=== PATIENT | male | born 1945 | race Caucasian/White ===

== ENCOUNTER 2021-06-26 00:31 | Day surgery (SDC) | payer MEDICARE, SELFPAY ==
[2021-06-18 11:31] VITALS: BMI 33.2
[2021-06-26 11:21] VITALS: BP 125/74; PULSE 96; RESP 18; TEMP 36.2; O2SAT 98
--- NOTE | 2021-06-26 11:23 | WPDGICN ---
Assessment and Plan Assessment and plan (1) History of colon polyps: Code(s): Z86.010 - Personal history of colonic polyps Status: Acute Assessment and Plan: Patient has a history of colon polyps on 2 previous colonoscopies. Plan is for surveillance colonoscopy at this time. Further recommendations will be given after endoscopy. GI Consult Note Consult date/time: 06/26/21 11:23 HPI: Maco Mendoza is a 75 year old male Presents for screening colonoscopy. Patient has a history of colon polyp at the time of last endoscopy 2014. Patient also had colon polyps in 2011. His current weight appetite and bowel movements are normal. He denies abdominal pain. He has had no bleeding. Family history is significant for an uncle with colon cancer. Patient presents today for neoplasia screening. Review of Systems Review of Systems: All systems reviewed & are unremarkable except as noted in HPI and below PMFSH Past Medical History Medical History (Updated 06/26/21 @ 11:24 by Karan Armijo MD) Alcohol abuse Allergic rhinitis Encounter for immunization Essential hypertension Gastroesophageal reflux disease Hyperlipidemia, unspecified Insomnia Major depressive disorder, single episode, unspecified KERRIE (obstructive sleep apnea) Overweight (BMI 25.0-29.9) Persistent cough for 3 weeks or longer Prediabetes Seborrheic keratoses Thrombocytopenia Surgical History Surgical History H/O colonoscopy with polypectomy Family History Family History Mother Family history of osteoporosis Father Family history of hearing loss Social History Social History Smoking packs per day: 1 Smoking cigarettes per day: 20.0 Years smoked: 15 Smoking pack-years: 15.00 Smoking status: Former smoker Tobacco type: cigarettes Second hand tobacco smoke exposure: No Smoking end date: 05/19/15 Alcohol intake: former Substance use: never Substance use type: does not use Living arrangements: with family Gender identity (if verbalized by the patient): Male Spiritual care concerns: No Meds Home Medications and Allergies Home Medications Medication Instructions Recorded Confirmed Type aripiprazole 5 mg tablet 5 mg PO QPM tablet 11/29/19 06/18/21 History bupropion HCl 150 mg 24 hr tablet, 150 mg PO QAM tablet 11/29/19 06/18/21 History extended release fluticasone propionate 50 2 spray NASAL DAILY PRN ml 11/29/19 06/18/21 History mcg/actuation nasal spray,suspension naltrexone 50 mg tablet 50 mg PO DAILY tablet 11/29/19 06/18/21 History albuterol sulfate 90 mcg/actuation 1 puff INHALATION BID PRN 06/07/20 06/18/21 History aerosol inhaler ketoconazole 2 % shampoo 1 applic TOPICAL 2XW PRN 06/07/20 06/18/21 History loratadine 10 mg tablet 10 mg PO QPM 06/07/20 06/18/21 History cholecalciferol (vitamin D3) 125 125 mcg PO QPM 11/21/20 06/18/21 History mcg (5,000 unit) capsule desonide 0.05 % lotion 1 applic TOPICAL DAILY PRN 11/21/20 06/18/21 History magnesium oxide 400 mg (241.3 mg 400 mg PO DAILY 11/21/20 06/18/21 History magnesium) tablet mecobalamin (vitamin B12) 1,000 1,000 mcg SUBLINGUAL DAILY 11/21/20 06/18/21 History mcg disintegrating tablet,sublingual melatonin 10 mg capsule 10 mg PO QHS 11/21/20 06/18/21 History miboywtn-crhyjzpt-ayphh acid 400 1 tablet PO DAILY 11/21/20 06/18/21 History mcg-vit K 20 mcg-lycop 300 mcg tablet turmeric root extract 500 mg 500 mg PO DAILY 11/21/20 06/18/21 History capsule Glucosamine Chondroitin 1 cap PO DAILY 06/18/21 06/18/21 History bioflavonoids 200 mg PO DAILY 06/18/21 06/18/21 History omeprazole 40 mg capsule,delayed 40 mg PO QPM #90 cap 06/25/21 Rx release Allergies Allergy/AdvReac Type Severity Reaction Status Date / Time phenytoin Allergy Unk
[2021-06-26] MEDS: LACTATED RINGERS 1,000 ML 150 ML IV CONT (11:33)
--- NOTE | 2021-06-26 11:53 | WPDANESEPPF ---
Anes - Initial Pre Proc Eval Procedure: Operation Date: 06/26/21 12:30 Proposed Procedures p Screening Colonoscopy - Karan Armijo MD Date/Time: 06/26/21 11:53 Surgeon: Karan Armijo MD Pre Op Diagnosis: hx of colon polyps Patient Data Age: 75 Gender: M Height: 1.78 m Weight: 90.8 kg Last Vital Signs Temp 97.2 F L 06/26/21 11:21 Pulse 96 06/26/21 11:21 Resp 18 06/26/21 11:21 BP 125/74 06/26/21 11:21 Pulse Ox 98 06/26/21 11:21 Allergies Allergy/AdvReac Type Severity Reaction Status Date / Time phenytoin Allergy Unknown Unknown Verified 06/26/21 11:19 Home Medications Medication Instructions Recorded Confirmed Type aripiprazole 5 mg tablet 5 mg PO QPM tablet 11/29/19 06/18/21 History bupropion HCl 150 mg 24 hr tablet, 150 mg PO QAM tablet 11/29/19 06/18/21 History extended release fluticasone propionate 50 2 spray NASAL DAILY PRN ml 11/29/19 06/18/21 History mcg/actuation nasal spray,suspension naltrexone 50 mg tablet 50 mg PO DAILY tablet 11/29/19 06/18/21 History albuterol sulfate 90 mcg/actuation 1 puff INHALATION BID PRN 06/07/20 06/18/21 History aerosol inhaler ketoconazole 2 % shampoo 1 applic TOPICAL 2XW PRN 06/07/20 06/18/21 History loratadine 10 mg tablet 10 mg PO QPM 06/07/20 06/18/21 History cholecalciferol (vitamin D3) 125 125 mcg PO QPM 11/21/20 06/18/21 History mcg (5,000 unit) capsule desonide 0.05 % lotion 1 applic TOPICAL DAILY PRN 11/21/20 06/18/21 History magnesium oxide 400 mg (241.3 mg 400 mg PO DAILY 11/21/20 06/18/21 History magnesium) tablet mecobalamin (vitamin B12) 1,000 1,000 mcg SUBLINGUAL DAILY 11/21/20 06/18/21 History mcg disintegrating tablet,sublingual melatonin 10 mg capsule 10 mg PO QHS 11/21/20 06/18/21 History buhzoxvl-buvycivb-yipaw acid 400 1 tablet PO DAILY 11/21/20 06/18/21 History mcg-vit K 20 mcg-lycop 300 mcg tablet turmeric root extract 500 mg 500 mg PO DAILY 11/21/20 06/18/21 History capsule Glucosamine Chondroitin 1 cap PO DAILY 06/18/21 06/18/21 History bioflavonoids 200 mg PO DAILY 06/18/21 06/18/21 History omeprazole 40 mg capsule,delayed 40 mg PO QPM #90 cap 06/25/21 Rx release Patient hx anesthesia problems: none Family hx anesthesia problems: none Results Review: All pre-operative results and documents have been reviewed as part of the pre-operative evaluation. [facility] Past Medical History Medical History (Updated 06/26/21 @ 11:24 by Karan Armijo MD) Alcohol abuse Allergic rhinitis Encounter for immunization Essential hypertension Gastroesophageal reflux disease Hyperlipidemia, unspecified Insomnia Major depressive disorder, single episode, unspecified KERRIE (obstructive sleep apnea) Overweight (BMI 25.0-29.9) Persistent cough for 3 weeks or longer Prediabetes Seborrheic keratoses Thrombocytopenia Surgical History Surgical History H/O colonoscopy with polypectomy Family History Family History Mother Family history of osteoporosis Father Family history of hearing loss Social History Social History Smoking packs per day: 1 Smoking cigarettes per day: 20.0 Years smoked: 15 Smoking pack-years: 15.00 Smoking status: Former smoker Tobacco type: cigarettes Second hand tobacco smoke exposure: No Smoking end date: 05/19/15 Alcohol intake: former Substance use: never Substance use type: does not use Living arrangements: with family Gender identity (if verbalized by the patient): Male Spiritual care concerns: No Anes - Eval Final PreProcedure Day of Procedure 06/26/21 11:53 Patient weight: overweight Heart: regular rate and rhythm Lungs: clear to auscultation Airway: Mallampati scale class II Neurological: alert and oriented Last oral intake: >/= 8 hours ASA classifica
[2021-06-26 12:26] VITALS: BP 95/61; PULSE 79; RESP 16; O2SAT 96
[2021-06-26 12:36] VITALS: BP 118/36; PULSE 90; RESP 17; O2SAT 97
[2021-06-26 12:46] VITALS: BP 121/81; PULSE 75; RESP 17; O2SAT 100
== END 2021-06-26 12:56 | disposition home or self-care (01) ==
PROVIDERS: PCP Family Medicine; Visit Provider Internal Medicine Gastroenterology
PROC: 0DJD8ZZ Inspection of Lower Intestinal Tract, Via Natural or Artificial Opening Endoscopic (ICD-10-PCS; CPT 45378; principal; 2021-06-26 12:30)
DX: Z12.11 Encounter for screening for malignant neoplasm of colon (principal); D12.2 Benign neoplasm of ascending colon; D12.4 Benign neoplasm of descending colon; K63.5 Polyp of colon; K57.30 Diverticulosis of large intestine without perforation or abscess without bleeding; Z79.51 Long term (current) use of inhaled steroids; I10 Essential (primary) hypertension; E78.5 Hyperlipidemia, unspecified; R73.03 Prediabetes; K21.9 Gastro-esophageal reflux disease without esophagitis; F32.9 Major depressive disorder, single episode, unspecified; G47.33 Obstructive sleep apnea (adult) (pediatric); Z87.891 Personal history of nicotine dependence
CPT/HCPCS: 45385; 88305; J2704; J7120

== ENCOUNTER 2022-11-27 11:29 | Emergency (ER) | payer MEDICARE, SELFPAY ==
--- NOTE | 2022-11-27 11:37 | ED.URI ---
HPI - URI/Sore Throat General Chief Complaint: Upper Respiratory Infection Stated Complaint: Sore throa, headache, fever, body aches Source: patient, family and RN notes reviewed Mode of arrival: ambulatory Limitations: no limitations History of Present Illness HPI Narrative: patient is a 77-year-old male who presents to the [facility] with complaints of sore throat, headache, and fever starting on Friday. Patient states that his symptoms have continued along with some generalized body aches and nasal congestion / drainage. Patient states that he has a chronic cough that has not changed. It is not productive. He denies shortness of breath or chest pain. Denies abdominal pain, nausea, vomiting, diarrhea. Related Data Home Medications Medication Instructions Recorded Confirmed aripiprazole 5 mg tablet 5 mg PO QPM 11/29/19 11/27/22 bupropion HCl 150 mg 24 hr tablet, 150 mg PO QAM 11/29/19 11/27/22 extended release fluticasone propionate 50 2 spray intranasal DAILY PRN Sinus 11/29/19 11/27/22 mcg/actuation nasal Symptoms spray,suspension naltrexone 50 mg tablet 50 mg PO DAILY 11/29/19 11/27/22 albuterol sulfate 90 mcg/actuation 1 puff inhalation BID PRN 06/07/20 11/27/22 aerosol inhaler Shortness Of Breath Or Wheezing ketoconazole 2 % shampoo 1 applic topical 2XW PRN Outbreak 06/07/20 11/27/22 desonide 0.05 % lotion 1 applic topical DAILY PRN Rash 11/21/20 11/27/22 mecobalamin (vitamin B12) 1,000 1,000 mcg sublingual DAILY 11/21/20 11/27/22 mcg disintegrating tablet,sublingual melatonin 10 mg capsule 10 mg PO QHS 11/21/20 11/27/22 cakmtwvz-rbcyjpay-vjtib acid 400 1 tablet PO DAILY 11/21/20 11/27/22 mcg-vit K 20 mcg-lycop 300 mcg tablet (One-A-Day Men's Multivitamin) turmeric root extract 500 mg 500 mg PO DAILY 11/21/20 11/27/22 capsule Glucosamine Chondroitin 1 cap PO DAILY 06/18/21 11/27/22 bioflavonoids 200 mg capsule 200 mg PO DAILY 06/18/21 11/27/22 Allergies Allergy/AdvReac Type Severity Reaction Status Date / Time phenytoin Allergy Unknown Unknown Verified 11/27/22 11:48 Review of Systems Review of Systems: CONSTITUTIONAL: Reports fever. EYES: Denies visual changes, redness, or discharge. ENT: Reports sore throat. Reports nasal congestion and drainage. CARDIOVASCULAR: Denies chest pain, palpitations, or edema. RESPIRATORY: Denies cough or dyspnea. GASTROINTESTINAL: Denies abdominal pain, nausea, vomiting, or diarrhea. GENITOURINARY: Denies dysuria or hematuria. SKIN: Denies rash or itching. MUSCULOSKELETAL: Denies back pain or joint pain. Reports body aches. NEUROLOGIC: Denies numbness or weakness. Reports headache. Pertinent positives per HPI. [facility] Past Medical History Medical History Alcohol abuse Allergic rhinitis Encounter for immunization Essential hypertension Gastroesophageal reflux disease Hyperlipidemia, unspecified Insomnia Major depressive disorder, single episode, unspecified KERRIE (obstructive sleep apnea) Overweight (BMI 25.0-29.9) Persistent cough for 3 weeks or longer Prediabetes Seborrheic keratoses Thrombocytopenia Surgical History Surgical History H/O colonoscopy with polypectomy Family History Family History Mother Family history of osteoporosis Father Family history of hearing loss Social History Social History Smoking packs per day: 1 Smoking cigarettes per day: 20.0 Years smoked: 15 Smoking pack-years: 15.00 Smoking status: Former smoker (stopped 5 years Smoked 20 years 1ppd) Tobacco type: cigarettes Second hand tobacco smoke exposure: No Smoking end date: 05/19/15 Alcohol intake: former Substance use: never Substance use type: does not use Lack of Transportation: No Lack of Food: Never
[2022-11-27 11:38] VITALS: BP 126/59; PULSE 94; RESP 16; TEMP 37.6; O2SAT 96
== END 2022-11-27 11:58 | disposition home or self-care (01) ==
PROVIDERS: Emergency Provider Nurse Practitioner; PCP Family Medicine
DX: U07.1 COVID-19 (principal); I10 Essential (primary) hypertension; K21.9 Gastro-esophageal reflux disease without esophagitis; E78.5 Hyperlipidemia, unspecified; R73.03 Prediabetes; Z87.891 Personal history of nicotine dependence
CPT/HCPCS: 87081; 87426; 87804; 87880; 99213; C9803; G0463

== ENCOUNTER 2023-04-07 14:03 | Outpatient (CLI) | payer MEDICARE, SELFPAY ==
--- NOTE | ~2023-04-07 | US_ITS ---
US arterial ankle brachial ind INDICATION: Peripheral vascular disease TECHNIQUE: Segmental pressures and plethysmographic and Doppler waveforms of the brachial and lower e xtremity arteries were obtained. COMPARISON: None. FINDINGS: Right and left brachial artery pressures of 128 mm Hg and 129 mm Hg, respectively, are concordant (no rmal difference <= 30 mmHg). The right ankle-brachial index (CODI) is 1.16 (normal >= 0.9-1.0). The right great toe-brachial index (TBI) is 0.36 (normal >= 0.60). The left CODI is 1.2. The left TBI is 0.2. IMPRESSION: 1. Diminished bilateral toe brachial indices consistent with peripheral arterial disease. Reviewed, dictated and finalized at location B. NO HOST IMPRESSION: 1. Diminished bilateral toe brachial indices consistent with peripheral arteria l disease.
== END 2023-04-07 14:04 | disposition home or self-care (01) ==
PROVIDERS: PCP Family Medicine; Visit Provider Family Medicine
DX: I73.9 Peripheral vascular disease, unspecified (principal)
CPT/HCPCS: 93922

== ENCOUNTER 2024-04-19 10:34 | Emergency (ER) | payer MEDICARE, SELFPAY ==
[2024-04-19 10:44] VITALS: BP 152/76; PULSE 88; RESP 18; TEMP 36.7; O2SAT 100
[2024-04-19 10:45] VITALS: BP 152/76; PULSE 88; RESP 18; TEMP 36.7; O2SAT 100
--- NOTE | 2024-04-19 11:15 | ED.URI ---
HPI - URI/Sore Throat General Chief Complaint: Upper Respiratory Infection Stated Complaint: Sore Throat/Ear Pain Time Seen by Provider: 04/19/24 11:05 Source: patient and RN notes reviewed Mode of arrival: ambulatory Limitations: no limitations History of Present Illness HPI Narrative: Patient presents today with a one-week history of sore throat that is worse in the mornings, right ear fullness, nasal congestion, subjective fever, eye watering. He currently rates his pain 8/10 and has been taking Zyrtec an aspirin without much relief. Related Data Home Medications Medication Instructions Recorded Confirmed aripiprazole 5 mg tablet 5 mg PO QPM 11/29/19 04/19/24 bupropion HCl 150 mg 24 hr tablet, 150 mg PO QAM 11/29/19 04/19/24 extended release naltrexone 50 mg tablet 50 mg PO DAILY 11/29/19 04/19/24 ketoconazole 2 % shampoo 1 applic topical 2XW PRN Outbreak 06/07/20 04/19/24 desonide 0.05 % lotion 1 applic topical DAILY PRN Rash 11/21/20 04/19/24 melatonin 10 mg capsule 10 mg PO QHS 11/21/20 04/19/24 zclvnjcj-hbubmdve-kwbst acid 400 1 tablet PO DAILY 11/21/20 04/19/24 mcg-vit K 20 mcg-lycop 300 mcg tablet (One-A-Day Men's Multivitamin) Glucosamine Chondroitin 1 cap PO DAILY 06/18/21 04/19/24 bioflavonoids 200 mg capsule 200 mg PO DAILY 06/18/21 04/19/24 Allergies Allergy/AdvReac Type Severity Reaction Status Date / Time phenytoin Allergy Unknown Unknown Verified 04/19/24 10:43 Review of Systems Review of Systems: CONSTITUTIONAL: Denies body aches, chills, or sweats.+ subjective fever EYES: Denies visual changes, redness, or discharge.+ eye watering ENT: Denies rhinorrhea, or otalgia.+ right ear fullness, sore throat, nasal congestion CARDIOVASCULAR: Denies chest pain, palpitations, or edema. RESPIRATORY: Denies cough or dyspnea. GASTROINTESTINAL: Denies abdominal pain, nausea, vomiting, or diarrhea. GENITOURINARY: Denies dysuria or hematuria. SKIN: Denies rash, itching, or wounds. MUSCULOSKELETAL: Denies back pain, joint pain, or myalgia. NEUROLOGIC: Denies headache, numbness, tingling, or weakness. PSYCH: Denies depression or anxiety. [facility] Past Medical History Medical History Alcohol abuse Allergic rhinitis Encounter for immunization Essential hypertension Gastroesophageal reflux disease Hyperlipidemia, unspecified Insomnia Major depressive disorder, single episode, unspecified KERRIE (obstructive sleep apnea) Overweight (BMI 25.0-29.9) Persistent cough for 3 weeks or longer Prediabetes Seborrheic keratoses Thrombocytopenia Surgical History Surgical History H/O colonoscopy with polypectomy Family History Family History Mother Family history of osteoporosis Father Family history of hearing loss Social History Social History Smoking packs per day: 1 Smoking cigarettes per day: 20.0 Years smoked: 15 Smoking pack-years: 15.00 Smoking status: Former smoker (stopped 5 years Smoked 20 years 1ppd) Tobacco type: cigarettes Second hand tobacco smoke exposure: No Smoking end date: 05/19/15 Alcohol intake: former Substance use: never Substance use type: does not use Lack of Transportation: No Lack of Food: Never True Current Housing: I Have Housing Concerned About Future Housing: No Difficulty Paying Gas/Electric Bills: No Difficulty Paying for Meds: No Currently Unemployed: No Education: Bachelor's Degree Difficulty w/ Childcare or Family Care: No Living arrangements: with family Gender identity (if verbalized by the patient): Male Spiritual care concerns: No Comments At time of signature, I have reviewed and agree with nursing past medical, surgical, social and family history unless otherwise noted. Please see nursing chart for further information. There is no relevant family history pertinent to the presenting complaint Exam Narrative: GENERAL: Well-appearing, well-nourished, and in no acute distress. HEAD: Normocephalic, atraumatic. EYES: EOMI. No redness or drainage. Conjunctivae normal. ENT: Mucous membranes pink and moist. Nares clear. No rhinorrhea. TMs normal bilaterally. Throat erythematous with mild edema. No exudate. Uvula midline. NECK: Normal AROM. Supple. No lymphadenopathy. CHEST: No respiratory distress. Clear to auscultation. HEART: Regular rate and rhythm. No murmur appreciated. EXTREMITIES: Normal range of motion. No edema. SKIN: Warm, dry, no rash. Capillary refill normal. Normal skin turgor. NEURO: No focal deficits. Alert and oriented x3. Gait steady. PSYCH: Normal affect. No signs of depression or anxiety. Course Course Level of Care: Express Care Visit Vital Signs Vital signs: Vital Signs Temperature 98.1 F 04/19/24 10:44 Pulse Rate 88 04/19/24 10:44 Respiratory Rate 18 04/19/24 10:44 Blood Pressure 152/76 H 04/19/24 10:44 Pulse Oximetry 100 04/19/24 10:44 Oxygen Delivery Room Air 04/19/24 10:44 Temperature 98.1 F 04/19/24 10:45 Pulse Rate 88 04/19/24 10:45 Respiratory Rate 18 04/19/24 10:45 Blood Pressure 152/76 H 04/19/24 10:45 Pulse Oximetry 100 04/19/24 10:45 Oxygen Delivery Room Air 04/19/24 10:45 Reviewed MDM - URI/Sore Throat MDM Narrative Medical decision making narrative: Rapid strep negative. Culture pending. Symptoms likely viral in etiology. Discussed facl-opv-elyyczm medication use and duration of illness. Short prescription for prednisone sent to pharmacy to help with symptoms. Anticipatory guidance given. Differential Diagnosis Differential diagnosis: Likely upper respiratory infection, otitis media, viral infection, bronchitis, pharyngitis and other (Strep throat) Lab Data Attestation: I reviewed the patient's lab results. Lab results narrative: Rapid strep negative Critical Care Time Critical Care Time Critical Care Time: No Discharge Plan Discharge Clinical Impression: Upper respiratory infection Qualifiers: URI type: unspecified URI Qualified Code(s): J06.9 - Acute upper respiratory infection, unspecified Pharyngitis Qualifiers: Pharyngitis/tonsillitis etiology: unspecified etiology Qualified Code(s): J02.9 - Acute pharyngitis, unspecified Patient Disposition: Home, Self-Care Condition: Stable Instructions: Pharyngitis (ED) Additional Instructions: Your rapid strep swab was negative today at [facility]. You will be notified in a few days if the culture comes back positive for strep, and appropriate antibiotics will be called in for you at that time. Your symptoms are likely due to a viral illness, which is not treated with antibiotics. Viral symptoms can be present for up to 7-10 days. Take Cipriano for fever or pain. Rest and stay hydrated. Follow up with your PCP in 3-5 days if symptoms are not improving. Go to the ER immediately if you have any difficulty breathing or swallowing. Take the prednisone as directed. Your blood pressure was elevated above 120/80 today at Urgent Care. This puts you above the threshold for follow up. Please schedule a followup visit with your personal physician as soon as possible, for further evaluation and treatment. Even blood pressure exceeding 120/80 may indicate pre-hypertension. Prescriptions: New prednisone 20 mg tablet 40 mg PO DAILY 5 Days Qty: 10 0RF No Action naltrexone 50 mg tablet 50 mg PO DAILY bupropion HCl 150 mg tablet extended release 24 hr 150 mg PO QAM aripiprazole 5 mg tablet 5 mg PO QPM ketoconazole 2 % shampoo 1 applic topical 2XW PRN (Reason: Outbreak) desonide 0.05 % lotion 1 applic topical DAILY PRN (Reason: Rash) One-A-Day Men's Multivitamin 400-20-300 mcg tablet 1 tablet PO DAILY melatonin 10 mg capsule 10 mg PO QHS bioflavonoids 200 mg Capsule 200 mg PO DAILY Glucosamine Chondroitin 1 cap PO DAILY aspirin 81 mg tablet,delayed release (DR/EC) 81 mg PO DAILY Qty: 30 0RF omeprazole 40 mg capsule,delayed release(DR/EC) 40 mg PO QPM Qty: 90 3RF rosuvastatin 5 mg tablet 5 mg PO DAILY Qty: 30 6RF loratadine 10 mg tablet 10 mg PO QPM Qty: 90 3RF Follow-up/Referrals: Rama Dacosta MD [Primary Care Provider] - Time of Disposition: 11:19
[2024-04-19 17:03] LABS: EDSTREPNEGPOS1 Negative (Negative)
== END 2024-04-19 11:26 | disposition home or self-care (01) ==
PROVIDERS: Emergency Provider Nurse Practitioner; PCP Family Medicine
DX: J06.9 Acute upper respiratory infection, unspecified (principal); J02.9 Acute pharyngitis, unspecified; Z87.891 Personal history of nicotine dependence; I10 Essential (primary) hypertension; K21.9 Gastro-esophageal reflux disease without esophagitis; E78.5 Hyperlipidemia, unspecified; R73.03 Prediabetes; D69.6 Thrombocytopenia, unspecified
CPT/HCPCS: 87081; 87880; 99213; G0463

== ENCOUNTER 2024-06-25 11:38 | Outpatient (CLI) | payer MEDICARE, SELFPAY ==
--- NOTE | ~2024-06-25 | XR_ITS ---
EXAMINATION: XR knee LT 3V DATE: 06/25/2024 12:05 INDICATION: Pain in unspecified knee. TECHNIQUE: 3 views of left knee including standing views were obtained. COMPARISON: Left knee radiographs 09/05/2003 FINDINGS: Alignment is normal. No fracture. There is moderate osteoarthritis of medial compartment an d mild osteoarthritis of lateral and patellofemoral compartments. No knee joint effusion. IMPRESSION: 1. Moderate left knee osteoarthritis. Reviewed, dictated and finalized at location A. ENT ACCOUNTING REPRESENTATIVE
--- NOTE | ~2024-06-25 | XR_ITS ---
XR knee RT 3V 06/25/2024 12:05 Indication: Right knee pain Procedure: 3 views right knee Comparison: No prior studies for comparison. Findings: There is severe osteoarthritis of the right knee, most advanced at the medial compartment. No fracture or traumatic malalignment. No significant joint effusion. Impression: 1: Tricompartment osteoarthritis, severe in the medial compartment. Reviewed, dictated and finalized at location A. RETE STONE FABRICATOR Impression: 1: Tricompartment osteoarthritis, severe in the medial compartment.
== END 2024-06-25 11:39 | disposition home or self-care (01) ==
LOC: MICIMG 11:40
PROVIDERS: PCP Family Medicine; Visit Provider Student in an Organized Health Care Education/Training Program
DX: M17.0 Bilateral primary osteoarthritis of knee (principal)
CPT/HCPCS: 73562

== ENCOUNTER 2024-07-27 07:38 | Outpatient (CLI) | payer MEDICARE, SELFPAY ==
--- OUTSIDE RECORDS SUMMARY | 2024-07-27 07:42 | XMS_ITS | Referral Summary ---
Author Organization [facility] Address [address] [place] [address] Care Team Providers Care Sap Bw Consultant Name Role Phone Rama Dacosta MD Primary Care Provider [phone] Source Comments [facility],non-owned Affiliates and Associated Physician Practices is amultiple site organization consisting of ambulatory clinics and hospital sitesin [place], [place], [place] and [place]. This disclosure is being madepursuant to the Care Everywhere program and may not contain all information available regarding this patient. Last updated 18.[facility] Immunizations Name Administration Dates Next Due INFLUENZA VACCINE, HIGH-DOSE , QUADR. (FLUZONE HIGH-DOSE QUADRIVALENT; 65Y+), 0.7 ML ([id number]) 04/22/2016 Social History Tobacco Use Types Packs/Day Years Used Date Smoking Tobacco: Never Assessed Sex and Gender Information Value Date Recorded Sex Assigned at Not on file Gender Identity Not on file Sexual Orientation Not on file Plan of Treatment Not on file Care Teams Sap Bw Consultant Relationship Specialty Start Date End Date Rama Dacosta MD [address] [place] [address] PCP - General Family Medicine 04/22/16
--- OUTSIDE RECORDS SUMMARY | 2024-07-27 07:42 | XMS_ITS | Clinical Summary ---
Author Organization [address] Address [address] [place] [address] Care Team Providers Care Forklift Wheel Loader Name Role Phone Rama Dacosta MD Primary Care Provider [phone] Allergies No known active allergies Medications ARIPiprazole (ABILIFY) 5 mg tablet 1 Active buPROPion XL (WELLBUTRIN XL) 150 mg 24 hr tablet 1 Active naltrexone (DEPADE) 50 mg tablet 1 Active omeprazole (PriLOSEC) 40 mg capsule 1 Active fluticasone propionate (FLONASE) 50 mcg/actuation nasal sprayIndication s:Seasonal allergic rhinitis due to pollen Administer 2 sprays into each nostril daily 3 Inhaler 3 1 Active Active Problems Problem Noted Date Diagnosed Date Seasonal allergic rhinitis due to pollen 021 Surgical History Surgery Date Site/Laterality Comments APPENDECTOMY Medical History Medical History Date Comments Allergic rhinitis Anxiety Depression Peptic ulcer GERD (gastroesophageal reflux disease) Sinusitis Social History Tobacco Use Types Packs/Day Years Used Date Smoking Tobacco: Former Cigarettes Q uit: 2017 Smokeless Tobacco: Never Personal Safety Answer Date Recorded Getting School Help Needed Not on file 08/01 Sex and Gender Information Value Date Recorded Sex Assigned at Not on file 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 Gender Identity Not on file Sexual Orientation Not on file Obstetrics History Last Filed Vital Signs Vital Sign Reading Time Taken Comments Blood Pressure - - Pulse - - Temperature 36.5 C (97.7 F) 08/24/2020 8:47 AM CDT Respiratory Rate - - Oxygen Saturation - - Inhaled Oxygen Concentration - - Weight 104.3 kg (230 lb) 08/24/2020 8:47 AM CDT Height 177.8 cm (5' 10 ) 08/24/2020 8:47 AM CDT Body Mass Index 33 08/24/2020 8:47 AM CDT Plan of Treatment Not on file Insurance [facility] Address: [facility] [address] [place] [address] Care Teams Forklift Wheel Loader Relationship Specialty Start Date End Date Rama Dacosta MD PCP - General Family Medicine 08/10/20
--- OUTSIDE RECORDS SUMMARY | 2024-07-27 07:42 | XMS_ITS | Patient Health Summary ---
Author Organization [facility] Address [address] [facility] [place] [address] Care Team Providers Care Chief Fundraising Officer Name Role Phone Rama Dacosta MD Primary Care Provider [phone] Note from [facility],non-owned Affiliates and Associated Physician Practices is amultiple site organization consisting of ambulatory clinics and hospital sitesin [place], [place], [place] and [place]. This disclosure is being madepursuant to the Care Everywhere program and may not contain all information available regarding this patient. Last updated 18.[facility] Immunizations * INFLUENZA VACCINE, HIGH-DOSE, QUADR. (FLUZONE HIGH-DOSE QUADRIVALENT; 65Y+), 0.7 ML (HD-IIV4)(Given 04/22/2016) Social History Tobacco Use Types Packs/Day Years Used Date Smoking Tobacco: Never Assessed Sex and Gender Information Value Date Recorded Sex Assigned at Not on file Gender Identity Not on file Sexual Orientation Not on file Procedures * DERMATOPATHOLOGY(Performed 07/07/2018) Results * DERMATOPATHOLOGY (07/07/2018 12:00 AM FULL STACK NET DEVELOPER) Case Report Dermatopathology Report Case: [id number] Authorizing Provider: Chris Paniagua MD Collected: 07/07/2018 12:00 AM Pathologist: Parth Castellano MD Received: 07/08/2018 12:12 PM Specimen: Skin, left cheek 9 4:22 PM FULL STACK NET DEVELOPER DERMATOPATHOLOGY LABORATORY Final Diagnosis Specimen A. SKIN, left cheek: BENIGN VERRUCOUS KERATOSIS, INFLAMED (L82.1) 9 4:[address] [facility] DERMATOPATHOLOGY LABORATORY Clinical History R/O BCC, ISK,SCC 9 4:[address] [facility] DERMATOPATHOLOGY LABORATORY Gross Description Specimen A: Received is one formalin filled container labeled with the patient's name and designated left cheek. The specimen consists of a shave biopsy measuring 8x7x4 mm, bisected. Jar 0. 9 4:[address] [facility] DERMATOPATHOLOGY LABORATORY Microscopic Description Specimen A. SKIN, left cheek: Sections show hyperkeratosis, papillomatosis, hypergranulosis, and acanthosis. Inflammatory cells are present within the dermis. These histological findings can be seen in a verruca vulgaris or a seborrheic keratosis. 4:[address] [facility] DERMATOPATHOLOGY LABORATORY Disclaimer An external and internal positive and negative controls are appropriate for the histochemical, immunohistochemical and immunofluorescence stain(s) in this case (if any), except where stated explicitly. The performance characteristics of the stain(s) cited in this report were developed and its performance characteristic determined by the Dermatopathology Laboratory at [facility], directed by Dr. Shraddha Castellano. These tests need not be, and therefore are not, approved by the [place] Food and Drug Administration. The tests are used for clinical purposes. Billing Codes Specimen Charges Stain Charges 29481 1 9 4:[address] [facility] DERMATOPATHOLOGY LABORATORY Embedded Images 9 4:[address] [facility] DERMATOPATHOLOGY LABORATORY Pathology/Cytolog y TISSUE SPECIMEN FROM SKIN / Unknown 07/07/2018 07/08/2018 12:[address] [facility] Chris Paniagua MD LAB - PATHOLOGY/CYTO LOGY ORDERABLES DERMATOPATHOLOGY LABORATORY [facility] - Department of Dermatology [address] [facility], [address] Floor Lab [address] [phone] Care Teams Chief Fundraising Officer Relationship Specialty Start Date End Date Rama Dacosta MD [address] [place] [address] PCP - General Family Medicine 04/22/16
--- OUTSIDE RECORDS SUMMARY | 2024-07-27 07:42 | XMS_ITS | Clinical Summary ---
Author Organization [facility] Address [address] Lui: Erika Pretayla [place] [address] Care Team Providers Care Cvicu Nurse Name Role Phone Unavailable Primary Care Provider Unavailabl e Medications ARIPiprazole (ABILIFY) 5 mg tablet TAKE ONE TABLET BY MOUTH AT BEDTIME 90 Tablet 2 Active buPROPion HCL (WELLBUTRIN XL) 150 mg Extended Release 24 hour tablet Take 1 tablet every day by oral route in the morning for 90 days. 90 Tablet 2 Active naltrexone (DEPADE) 50 mg tablet Take 1 tablet every day by oral route in the morning for 90 days. 90 Tablet 2 Active ARIPiprazole (ABILIFY) 5 mg tablet TAKE ONE TABLET BY MOUTH AT BEDTIME 90 Tablet 1 03/14/2022 6:24 PM CDT 2 Active buPROPion HCL (WELLBUTRIN XL) 150 mg Extended Release 24 hour tablet Take 1 Tablet (150 mg) by mouth daily in the morning. 90 Tablet 1 03/14/2022 6:24 PM CDT 2 Active naltrexone (DEPADE) 50 mg tablet Take 1 Tablet (50 mg) by mouth daily in the morning. 90 Tablet 1 03/14/2022 6:24 PM CDT 2 Active mometasone (ELOCON) 0.1 % Cream Apply twice daily to the face and behind ears 60 Gram 2 04/24/2022 12:54 PM PSYCHOLOGIST CLINICAL 2 Active buPROPion HCL (WELLBUTRIN XL) 150 mg Extended Release 24 hour tablet Take 1 tablet every day by oral route in the morning for 90 days. 90 Tablet 1 09/19/2022 2:45 PM CDT 3 Active naltrexone (DEPADE) 50 mg tablet Take 1 tablet every day by oral route in the morning for 90 days. 90 Tablet 1 09/19/2022 2:45 PM CDT 3 Active loratadine (CLARITIN) 10 mg tablet TAKE 1 TABLET BY MOUTH EVERY EVENING. 90 Tablet 3 07/10/2023 11:47 AM PSYCHOLOGIST CLINICAL 3 Active fluticasone propionate (FLONASE) 50 mcg/spray Shelby, Suspension nasal inhaler Administer 1 Shelby in each nostril 2 times daily. 16 Gram 11/27/2022 1:14 PM CDT 3 Active ARIPiprazole (ABILIFY) 5 mg tablet TAKE ONE TABLET BY MOUTH AT BEDTIME 90 Tablet 1 07/10/2023 11:47 AM PSYCHOLOGIST CLINICAL 3 Active naltrexone (DEPADE) 50 mg tablet Take 1 tablet every day by oral route in the morning for 90 days. 90 Tablet 1 08/15/2023 4:41 PM CDT 3 Active loratadine (CLARITIN) 10 mg tablet Take 1 tablet by mouth every evening 90 Tablet 3 4 Active omeprazole (PriLOSEC) 40 mg Capsule, Delayed Release(E.C.) Take 1 Capsule (40 mg) by mouth every evening. 90 Capsule 3 06/15/2024 2:10 PM PSYCHOLOGIST CLINICAL 4 Active ergocalciferol (VITAMIN D2) 50,000 unit capsule Take 1 Capsule (50,000 Units) by mouth every 7 days. 12 Capsule 2 07/19/2024 3:20 PM PSYCHOLOGIST CLINICAL 4 Active loratadine (CLARITIN) 10 mg tablet Take 1 Tablet (10 mg) by mouth daily every evening. 90 Tablet 3 06/05/2024 2:01 PM PSYCHOLOGIST CLINICAL 4 Active ARIPiprazole (ABILIFY) 5 mg tablet Take 1 Tablet (5 mg) by mouth daily at bedtime. 90 Tablet 1 05/20/2024 3:16 PM PSYCHOLOGIST CLINICAL 4 Active buPROPion HCL (WELLBUTRIN XL) 150 mg Extended Release 24 hour tablet Take 1 Tablet (150 mg) by mouth daily in the morning. 90 Tablet 1 06/29/2024 2:18 PM PSYCHOLOGIST CLINICAL 4 Active naltrexone (DEPADE) 50 mg tablet Take 1 Tablet (50 mg) by mouth daily. 90 Tablet 1 04/26/2024 2:59 PM PSYCHOLOGIST CLINICAL 4 Active amoxicillin-cl avulanate (AUGMENTIN) 875-125 mg tablet Take 1 Tablet by mouth 2 times daily. 20 Tablet 06/15/2024 2:10 PM PSYCHOLOGIST CLINICAL 5 Active rosuvastatin (CRESTOR) 5 mg tablet Take 1 Tablet (5 mg) by mouth daily. 30 Tablet 6 07/12/2024 4:11 PM PSYCHOLOGIST CLINICAL 5 Active rosuvastatin (CRESTOR) 5 mg tablet Take 1 Tablet (5 mg) by mouth daily. 30 Tablet 6 03/31/2024 11:42 AM PSYCHOLOGIST CLINICAL 4 07/12/19 25 Discontinu ed(Reorder ) Social History Tobacco Use Types Packs/Day Years Used Date Smoking Tobacco: Never Assessed Sex and Gender Information Value Date Recorded Sex Assigned at Not on file Legal Sex Male 3:27 PM CDT Gender Identity Not on file Sexual Orientation Not on file Plan of Treatment Health Maintenance Due Date Last Done Comments DTAP/TDAP/TD VACCINES (1 - Tdap) 08/03/1963 PNEUMOCOCCAL VACCINE 50+ YEARS (1 of 1 - PCV) 08/02/18 95 ZOSTER VACCINE (1 of 2) 1994 RSV VACCINE (60+ or ) (1 - 1-dose 75+ series) 08/03/2019 INFLUENZA VACCINE (#1) 2023 Insurance RX [employer] ([employer]) [facility] [employer] RX [employer] Medicare Part D
--- OUTSIDE RECORDS SUMMARY | 2024-07-27 07:42 | XMS_ITS | Encounter Summary ---
Author Organization [facility] Address [address] [place] [address] Care Team Providers Care Thread Laster Name Role Phone Rama Dacosta MD Primary Care Provider [phone] Encounter Details Date Type Department Care Team (Late st Contact Info) Description 07/08/2018 Lab Requisition [facility] Care DermPath Lab [address] [facility] [place] [address] Chris Paniagua MD [address] [place] [address] Social History Tobacco Use Types Packs/Day Years Used Date Smoking Tobacco: Never Assessed Sex and Gender Information Value Date Recorded Sex Assigned at Not on file Gender Identity Not on file Sexual Orientation Not on file documented as of this encounter Plan of Treatment Not on file documented as of this encounter Procedures Procedure Name Priority Date/Time Associated Diagnosis Comments DERMATOPATHOLOGY Routine 07/07/2018 12:0 0 AM PARACHUTE INSPECTOR documented in this encounter Results * DERMATOPATHOLOGY (07/07/2018 12:00 AM PARACHUTE INSPECTOR) Case Report Dermatopathology Report Case: [id number] Authorizing Provider: Chris Paniagua MD Collected: 07/07/2018 12:00 AM Pathologist: Parth Castellano MD Received: 07/08/2018 12:12 PM Specimen: Skin, left cheek 9 4:22 PM PARACHUTE INSPECTOR DERMATOPATHOLOGY LABORATORY Final Diagnosis Specimen A. SKIN, left cheek: BENIGN VERRUCOUS KERATOSIS, INFLAMED (L82.1) 9 4:22 PM [facility] DERMATOPATHOLOGY LABORATORY Clinical History R/O BCC, ISK,SCC 9 4:22 PM [facility] DERMATOPATHOLOGY LABORATORY Gross Description Specimen A: Received is one formalin filled container labeled with the patient's name and designated left cheek. The specimen consists of a shave biopsy measuring 8x7x4 mm, bisected. Jar 0. 4:22 PM [facility] DERMATOPATHOLOGY LABORATORY Microscopic Description Specimen A. SKIN, left cheek: Sections show hyperkeratosis, papillomatosis, hypergranulosis, and acanthosis. Inflammatory cells are present within the dermis. These histological findings can be seen in a verruca vulgaris or a seborrheic keratosis. 4:22 PM [facility] DERMATOPATHOLOGY LABORATORY Disclaimer An external and internal positive and negative controls are appropriate for the histochemical, immunohistochemical and immunofluorescence stain(s) in this case (if any), except where stated explicitly. The performance characteristics of the stain(s) cited in this report were developed and its performance characteristic determined by the Dermatopathology Laboratory at [facility], directed by Dr. Shraddha Castellano. These tests need not be, and therefore are not, approved by the [place] Food and Drug Administration. The tests are used for clinical purposes. Billing Codes Specimen Charges Stain Charges 72795 1 9 4:22 PM [facility] DERMATOPATHOLOGY LABORATORY Embedded Images 9 4:22 PM [facility] DERMATOPATHOLOGY LABORATORY Pathology/Cytolog y TISSUE SPECIMEN FROM SKIN / Unknown 07/07/2018 07/08/2018 12:12 PM PARACHUTE INSPECTOR Chris Paniagua MD LAB - PATHOLOGY/CYTO LOGY ORDERABLES DERMATOPATHOLOGY LABORATORY [facility] - Department of Dermatology [address] [place] [address], 5th Floor Lab [address] [phone] documented in this encounter Visit Diagnoses Not on filedocumented in this encounter Care Teams Thread Laster Relationship Specialty Start Date End Date Rama Dacosta MD [address] [place] [address] PCP - General Family Medicine 04/22/16 documented as of this encounter
--- OUTSIDE RECORDS SUMMARY | 2024-07-27 07:42 | XMS_ITS ---
Author Organization [facility] [employer] [facility] Address [address] [facility] [address] [place] [address] Care Team Providers Care Pot Room Supervisor Name Role Phone Rama Dacosta MD Primary Care Provider Monae Dacosta Unavailable [phone] Allergies No Known Allergies REASON FOR VISIT f/u Medications Medication SIG (Take, Route, Frequency, Duration) Notes Start Date End Date Status FLUZONE HIGH-DOSE QUAD (PF) 240 MCG/0.7 ML IM SYRINGE *Reorder from [employer] for eRx and Interaction Alerts* 09/23/2023 Active Omeprazole 40 MG Oral 09/23/2023 Ac tive ARIPiprazole 5 MG 1 tablet at bedtime Oral Once a day for 90 days 09/23/2023 Active buPROPion HCl ER (XL) 150 MG 1 tablet in the morning Oral Once a day for 90 days 09/23/2023 Active Mometasone Furoate 0.1 % External 09/23/2023 Active Ketoconazole 2% External 09/23/2023 Act suma Rosuvastatin Calcium 5 MG Oral 09/23/2023 Active BUPROPION HYDROCHLORIDE ER (XL) 150 MG TB24 *Reorder from [employer] for eRx and Interaction Alerts* 09/23/2023 Active Naltrexone HCl 50 MG 1 tablet Oral Once a day for 90 days 09/23/2023 09/19/2024 Active Desonide 0.05 % External 09/23/2023 Act suma Fluticasone Propionate Diskus 50 MCG/ACT Inhalation *Reorder from [employer] for eRx and Interaction Alerts* 09/23/2023 Active Social History Tobacco Use: Social History Observation Description Date Details (start date - stop date) Former Smoker NA - NA Sex Assigned At : Social History Observation Description Sex Assigned At Male Tobacco Control (Standard) Question Answer Notes Tobacco use: Former smoker Problems Problem Type SNOMED Code ICD Code Onset Dates Problem Status W/U Status Risk Notes Problem Bipolar affective disorder, currently depressed, mild (866267833) Bipolar disorder, current episode depressed, mild (F31.31) 4 Active confirmed Problem Generalized anxiety disorder (10895148) Generalized anxiety disorder (F41.1) 4 Active confirmed Problem 441810526 Alcohol dependence, in remission (F10.21) Active confirmed Problem Insomnia disorder related to another mental disorder (46431286) Insomnia due to other mental disorder (F51.05) 4 Active confirmed Problem Long-term current use of drug therapy (314839130) 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 (Z79.899) 4 Active confirmed Problem [id number] Elevated blood pressure reading (R03.0) Active confirmed Vital Signs Blood pressure systolic 130 mm Hg 03/23/20 24 Blood pressure diastolic 77 mm Hg 024 Heart Rate 81 /min 03/23/2024 Height 70.00 in 03/23/2024 Weight 215 lbs 03/23/2024 BMI 30.85 kg/m2 03/23/2024 Height-cm 177.80 cm 03/23/2024 Weight-kg 97.52 kg 03/23/2024 Encounters Encounter Location Date Provider Diagnosis [facility] [address] [address] 03/23/2024 Monae Quinteros Bipolar disorder, current episode depressed, mild F31.31 ; Generalized anxiety disorder F41.1 ; Alcohol dependence, in remission F10.21 ; Insomnia due to other mental disorder F51.05 ; 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 Z79.899 and Elevated blood pressure reading R03.0 Assessments Encounter Date Diagnosis (ICD Code) Assessment Notes Treatment Notes Treatment Clinical Notes Section Notes 03/23/2024 Bipolar disorder, current episode depressed, mild (ICD-10 - F31.31) presently taking Naltrexone 50 mg daily, Wellbutrin XL 150mg in am, Abilify 5 mg daily 1. Bipolar- Wellbutrin XL 150mg in am, Abilify 5 mg daily 2. Anxiety Wellbutrin 3. Insomnia- Melatonin 10 mg OTC naps in day and sleep in chair in evening 4. Alcohol- remission- Naltrexone 50 mg daily educated on all medications, benefits, side effects and risk, and educated on depression, anxiety, and ADHD, mood d/o and educated on compliance of medications, metabolic and movement d/o education appointment is, continue therapy discussion with patient about course of treatment and patient instructions. education on serotonin syndrome SSRI/SNRI side effects discussed including but not limited to, gastric upset, nausea, vomiting, diarrhea and/or constipation, weight changes, sexual side effects including loss of libido, increased suicidal thoughts/behaviors in children and young adults, and serotonin syndrome. Second generation antipsychotics (SGAs) have metabolic syndrome issues with weight gain, increase in prolactin, increased waist circumference, increased lipids, and increased glucose. Thus routine monitoring of weight, metabolic labs, etc. is indicated. A general rank ordering of antipsychotics that have the greatest to the least risk of metabolic effects is olanzapine, quetiapine, risperidone, ziprasidone, and aripiprazole. However, weight gain can occur with all of these drugs and considerable variability exists among patients receiving the same drug regarding the risk of metabolic effects. Anti-psychotic agents not only increase the risk of metabolic disorder, they also increase the risk of CVA, akathisia, and movement disorders including EPS or tardive dyskinesia (more common with first generation antipsychotics) and more. Elderly- discussed risks, cognition, sedation, falls, metabolic, movement and atypical antipsychotics carry a black-box warning for increased risk of and cerebrovascular events in dementia. Medication Management and Follow-Up - Plan: - Schedule follow-up appointments every 1-3 months to monitor the patient's response to the medication regimen. - Reinforce the importance of avoiding recreational drug use due to potential neurotoxicity and interactions with prescribed medications. 03/23/2024 Generalized anxiety disorder (ICD-10 - F41.1) presently taking Naltrexone 50 mg daily, Wellbutrin XL 150mg in am, Abilify 5 mg daily 1. Bipolar- Wellbutrin XL 150mg in am, Abilify 5 mg daily 2. Anxiety Wellbutrin 3. Insomnia- Melatonin 10 mg OTC naps in day and sleep in chair in evening 4. Alcohol- remission- Naltrexone 50 mg daily educated on all medications, benefits, side effects and risk, and educated on depression, anxiety, and ADHD, mood d/o and educated on compliance of medications, metabolic and movement d/o education appointment is, continue therapy discussion with patient about course of treatment and patient instructions. education on serotonin syndrome SSRI/SNRI side effects discussed including but not limited to, gastric upset, nausea, vomiting, diarrhea and/or constipation, weight changes, sexual side effects including loss of libido, increased suicidal thoughts/behaviors in children and young adults, and serotonin syndrome. Second generation antipsychotics (SGAs) have metabolic syndrome issues with weight gain, increase in prolactin, increased waist circumference, increased lipids, and increased glucose. Thus routine monitoring of weight, metabolic labs, etc. is indicated. A general rank ordering of antipsychotics that have the greatest to the least risk of metabolic effects is olanzapine, quetiapine, risperidone, ziprasidone, and aripiprazole. However, weight gain can occur with all of these drugs and considerable variability exists among patients receiving the same drug regarding the risk of metabolic effects. Anti-psychotic agents not only increase the risk of metabolic disorder, they also increase the risk of CVA, akathisia, and movement disorders including EPS or tardive dyskinesia (more common with first generation antipsychotics) and more. Elderly- discussed risks, cognition, sedation, falls, metabolic, movement and atypical antipsychotics carry a black-box warning for increased risk of and cerebrovascular events in dementia. Medication Management and Follow-Up - Plan: - Schedule follow-up appointments every 1-3 months to monitor the patient's response to the medication regimen. - Reinforce the importance of avoiding recreational drug use due to potential neurotoxicity and interactions with prescribed medications. 03/23/2024 Alcohol dependence, in remission (ICD-10 - F10.21) presently taking Naltrexone 50 mg daily, Wellbutrin XL 150mg in am, Abilify 5 mg daily 1. Bipolar- Wellbutrin XL 150mg in am, Abilify 5 mg daily 2. Anxiety Wellbutrin 3. Insomnia- Melatonin 10 mg OTC naps in day and sleep in chair in evening 4. Alcohol- remission- Naltrexone 50 mg daily educated on all medications, benefits, side effects and risk, and educated on depression, anxiety, and ADHD, mood d/o and educated on compliance of medications, metabolic and movement d/o education appointment is, continue therapy discussion with patient about course of treatment and patient instructions. education on serotonin syndrome SSRI/SNRI side effects discussed including but not limited to, gastric upset, nausea, vomiting, diarrhea and/or constipation, weight changes, sexual side effects including loss of libido, increased suicidal thoughts/behaviors in children and young adults, and serotonin syndrome. Second generation antipsychotics (SGAs) have metabolic syndrome issues with weight gain, increase in prolactin, increased waist circumference, increased lipids, and increased glucose. Thus routine monitoring of weight, metabolic labs, etc. is indicated. A general rank ordering of antipsychotics that have the greatest to the least risk of metabolic effects is olanzapine, quetiapine, risperidone, ziprasidone, and aripiprazole. However, weight gain can occur with all of these drugs and considerable variability exists among patients receiving the same drug regarding the risk of metabolic effects. Anti-psychotic agents not only increase the risk of metabolic disorder, they also increase the risk of CVA, akathisia, and movement disorders including EPS or tardive dyskinesia (more common with first generation antipsychotics) and more. Elderly- discussed risks, cognition, sedation, falls, metabolic, movement and atypical antipsychotics carry a black-box warning for increased risk of and cerebrovascular events in dementia. Medication Management and Follow-Up - Plan: - Schedule follow-up appointments every 1-3 months to monitor the patient's response to the medication regimen. - Reinforce the importance of avoiding recreational drug use due to potential neurotoxicity and interactions with prescribed medications. 03/23/2024 Insomnia due to other mental disorder (ICD-10 - F51.05) presently taking Naltrexone 50 mg daily, Wellbutrin XL 150mg in am, Abilify 5 mg daily 1. Bipolar- Wellbutrin XL 150mg in am, Abilify 5 mg daily 2. Anxiety Wellbutrin 3. Insomnia- Melatonin 10 mg OTC naps in day and sleep in chair in evening 4. Alcohol- remission- Naltrexone 50 mg daily educated on all medications, benefits, side effects and risk, and educated on depression, anxiety, and ADHD, mood d/o and educated on compliance of medications, metabolic and movement d/o education appointment is, continue therapy discussion with patient about course of treatment and patient instructions. education on serotonin syndrome SSRI/SNRI side effects discussed including but not limited to, gastric upset, nausea, vomiting, diarrhea and/or constipation, weight changes, sexual side effects including loss of libido, increased suicidal thoughts/behaviors in children and young adults, and serotonin syndrome. Second generation antipsychotics (SGAs) have metabolic syndrome issues with weight gain, increase in prolactin, increased waist circumference, increased lipids, and increased glucose. Thus routine monitoring of weight, metabolic labs, etc. is indicated. A general rank ordering of antipsychotics that have the greatest to the least risk of metabolic effects is olanzapine, quetiapine, risperidone, ziprasidone, and aripiprazole. However, weight gain can occur with all of these drugs and considerable variability exists among patients receiving the same drug regarding the risk of metabolic effects. Anti-psychotic agents not only increase the risk of metabolic disorder, they also increase the risk of CVA, akathisia, and movement disorders including EPS or tardive dyskinesia (more common with first generation antipsychotics) and more. Elderly- discussed risks, cognition, sedation, falls, metabolic, movement and atypical antipsychotics carry a black-box warning for increased risk of and cerebrovascular events in dementia. Medication Management and Follow-Up - Plan: - Schedule follow-up appointments every 1-3 months to monitor the patient's response to the medication regimen. - Reinforce the importance of avoiding recreational drug use due to potential neurotoxicity and interactions with prescribed medications. 03/23/2024 Other correction (current) drug therapy (ICD-10 - Z79.899) presently taking Naltrexone 50 mg daily, Wellbutrin XL 150mg in am, Abilify 5 mg daily 1. Bipolar- Wellbutrin XL 150mg in am, Abilify 5 mg daily 2. Anxiety Wellbutrin 3. Insomnia- Melatonin 10 mg OTC naps in day and sleep in chair in evening 4. Alcohol- remission- Naltrexone 50 mg daily educated on all medications, benefits, side effects and risk, and educated on depression, anxiety, and ADHD, mood d/o and educated on compliance of medications, metabolic and movement d/o education appointment is, continue therapy discussion with patient about course of treatment and patient instructions. education on serotonin syndrome SSRI/SNRI side effects discussed including but not limited to, gastric upset, nausea, vomiting, diarrhea and/or constipation, weight changes, sexual side effects including loss of libido, increased suicidal thoughts/behaviors in children and young adults, and serotonin syndrome. Second generation antipsychotics (SGAs) have metabolic syndrome issues with weight gain, increase in prolactin, increased waist circumference, increased lipids, and increased glucose. Thus routine monitoring of weight, metabolic labs, etc. is indicated. A general rank ordering of antipsychotics that have the greatest to the least risk of metabolic effects is olanzapine, quetiapine, risperidone, ziprasidone, and aripiprazole. However, weight gain can occur with all of these drugs and considerable variability exists among patients receiving the same drug regarding the risk of metabolic effects. Anti-psychotic agents not only increase the risk of metabolic disorder, they also increase the risk of CVA, akathisia, and movement disorders including EPS or tardive dyskinesia (more common with first generation antipsychotics) and more. Elderly- discussed risks, cognition, sedation, falls, metabolic, movement and atypical antipsychotics carry a black-box warning for increased risk of and cerebrovascular events in dementia. Medication Management and Follow-Up - Plan: - Schedule follow-up appointments every 1-3 months to monitor the patient's response to the medication regimen. - Reinforce the importance of avoiding recreational drug use due to potential neurotoxicity and interactions with prescribed medications. 03/23/2024 Elevated blood pressure reading (ICD-10 - R03.0) presently taking Naltrexone 50 mg daily, Wellbutrin XL 150mg in am, Abilify 5 mg daily 1. Bipolar- Wellbutrin XL 150mg in am, Abilify 5 mg daily 2. Anxiety Wellbutrin 3. Insomnia- Melatonin 10 mg OTC naps in day and sleep in chair in evening 4. Alcohol- remission- Naltrexone 50 mg daily educated on all medications, benefits, side effects and risk, and educated on depression, anxiety, and ADHD, mood d/o and educated on compliance of medications, metabolic and movement d/o education appointment is, continue therapy discussion with patient about course of treatment and patient instructions. education on serotonin syndrome SSRI/SNRI side effects discussed including but not limited to, gastric upset, nausea, vomiting, diarrhea and/or constipation, weight changes, sexual side effects including loss of libido, increased suicidal thoughts/behaviors in children and young adults, and serotonin syndrome. Second generation antipsychotics (SGAs) have metabolic syndrome issues with weight gain, increase in prolactin, increased waist circumference, increased lipids, and increased glucose. Thus routine monitoring of weight, metabolic labs, etc. is indicated. A general rank ordering of antipsychotics that have the greatest to the least risk of metabolic effects is olanzapine, quetiapine, risperidone, ziprasidone, and aripiprazole. However, weight gain can occur with all of these drugs and considerable variability exists among patients receiving the same drug regarding the risk of metabolic effects. Anti-psychotic agents not only increase the risk of metabolic disorder, they also increase the risk of CVA, akathisia, and movement disorders including EPS or tardive dyskinesia (more common with first generation antipsychotics) and more. Elderly- discussed risks, cognition, sedation, falls, metabolic, movement and atypical antipsychotics carry a black-box warning for increased risk of and cerebrovascular events in dementia. Medication Management and Follow-Up - Plan: - Schedule follow-up appointments every 1-3 months to monitor the patient's response to the medication regimen. - Reinforce the importance of avoiding recreational drug use due to potential neurotoxicity and interactions with prescribed medications. Plan Of Treatment Medication Medication Name Sig Start Date Stop Date Notes ARIPiprazole 5 MG 1 tablet at bedtime Oral Once a day for 90 days 09/23/2023 buPROPion HCl ER (XL) 150 MG 1 tablet in the morning Oral Once a day for 90 days 09/23/2023 Naltrexone HCl 50 MG 1 tablet Oral Once a day for 90 days 09/23/2023 09/19/2024 Next Appt Details Follow Up: 6 Months, Reason: f/u rx Provider Name:Monae Quinteros , 09/21/2024 11:45:00 AM, [address] [facility] [address] [facility] [address], [place], [address], Progress Notes * SRINIVASA KEENDOB:1945 (78 yo M)Acc No.[id number]:03/23/2024 Patient: Chris KASIASRINIVASA TREVIÑO Provider: Jean-Paul QUINTEROS PMHNP :1945 A ge:78 Y S ex:Male Date:03/23/2024 Address:[address] [place], [place] [id number] Pcp:Rama Dacosta MD Subjective: * Chief Complaints: * 1 . F/u. * HPI: D epression Screening: HANK-7 (2018 Edition) F eeling nervous, anxious, or on edge?Not at all, N ot being able to stop or control worrying N ot at all, W orrying too much about different things N ot at all, T rouble relaxing N ot at all, B eing so restless that it is hard to sit still N ot at all, B ecoming easily annoyed or irritable N ot at all, F eeling afraid as if something awful might happen N ot at all, T otal HANK-7 Score 0 , I f you checked any problems, how difficult have they made it for you to do your work, take care of things at home, or get along with other people? N ot difficult at all, I nterpretation of Total ( 0 to 4) No Anxiety. Follow up bipolar depression, anxiety, sleep chronic since last visit reported I been doing pretty good and feel even mood, no sean no hypomania, no psychosis no sad or down, no hopeless or helpless, time change adjusting, and I am getting used to dark early in afternoon, sleep not well, I have trouble fall and stay asleep average 3-4 hours at a time and 6 hours total, and naps in afternoon, appetite good, weight stable, concentrate and focus no issues I do have short term memory lapse, daily, I do not watch news, I have hard time at time with word or why I go into kitchen, no irritable or agitation, and motivation and interest ok, toelrating all rx no s/e, and energy ok, depend on stagima and physical chores, no SI/HI, I am to see PCP and labs. I take Melatonin 10 mg at bedtime and I do nap in chair in eveing and fall asleep then bed I am think and I go to meetings AA and no urges or relapses and no issues ETOH, rx helps denies SI/HI no plans or intent ETOH- remission 04/2018 Smoking former labs- none recently drugs- denies presently taking Naltrexone 50 mg daily, Wellbutrin XL 150mg in am, Abilify 5 mg daily rx hx Naltrexone, Wellbutrin, Abilify. C [place]-Suicide Severity Rating Scale: Suicide Risk (CSRS-screener) i n the past one month Have you wished you were or wished you could go to sleep and not wake up? N o, i n the past one month Have you actually had any thoughts of killing yourself? N o, H ave you ever done anything, started to do anything, or prepared to do anything to end your life? N o. D epression screening: PHQ-9 L ittle interest or pleasure in doing things N ot at all, F eeling down, depressed, or hopeless N ot at all, T rouble falling or staying asleep, or sleeping too much N early every day, F eeling tired or having little energy N ot at all, P oor appetite or overeating N ot at all, F eeling bad about yourself or that you are a failure, or have let yourself or your family down N ot at all, T rouble concentrating on things, such as reading the newspaper or watching television N ot at all, M oving or speaking so slowly that other people could have noticed; or the opposite, being so fidgety or restless that you have been moving around a lot more than usual N ot at all, T houghts that you would be better off or of hurting yourself in some way N ot at all, T otal Score 3 , I nterpretation M inimal Depression. I ntervention D epression Screening Findings?Negative, S uicide Risk Assessment Performed . * ROS: r eports n o shortness of breath when walking but reports no chest pain, no arm pain on exertion, no shortness of breath when lying down, no palpitations, no known heart murmur, and no ankle swelling; no cough. r eports no abdominal pain, no nausea, no vomiting, no constipation, normal appetite, no diarrhea, and no GERD; . r eports no headaches and no migraines but reports no loss of consciousness, no weakness, no numbness, no seizures, no dizziness, no tremor, no gait dysfunction, and no paralysis. r eports s leep disturbances restless sleep, and reported short term lapse of memory loss?but reports mild depression, feeling safe in a relationship, no alcohol abuse, mild anxiety, no hallucinations, no suicidal thoughts, no mood swings, no agitation, r eports f atigue. dry mouth chronic reports no fever, no significant weight gain, and no significant weight loss. r eports wears glasses reports no incontinence, no difficulty urinating, no hematuria, and no increased frequency. r eports no muscle aches, no muscle weakness, reported arthralgias/joint pain- knees, occasional back pain, no swelling in the extremities, no neck pain, and no difficulty walking. * Medical History: P daquan: Acute COVID-19, Alcohol dependence, Bipolar affective disorder, currently depressed, mild, Generalized anxiety disorder, Insomnia disorder related to another mental disorder, Long-term drug therapy, Vitamin D deficiency, ,. * Surgical History: a ppendix 2000 , gall bladder . * Social History: T obacco Use: T obacco Control (Standard) T obacco use: F ormer smoker. M igrated Social History: M igrated Social History: Alcohol Intake: None 04/30/2018,Tobacco Years: Former smoker 04/30/2018,Smoking Status: 39 03/20/2023. M iscellaneous: A dvance Care Planning A re you your own decision-maker Y es, D o you have Power of Primary School Principal for Health or Medical? Y es, D o you have a power of fish checker for health? Y es. * Medications: T aking Fluticasone Propionate Diskus 50 MCG/ACT Aerosol Powder Breath Activated Inhalation , Notes to Pharmacist: *[facility] and Interaction Alert[facility]*, Taking Desonide 0.05 % Lotion External , Taking Naltrexone HCl 50 MG Tablet Oral , Taking Ketoconazole 2% Shampoo External , Taking Mometasone Furoate 0.1 % Cream External , Taking buPROPion HCl ER (XL) 150 MG Tablet Extended Release 24 Hour Oral , Taking ARIPiprazole 5 MG Tablet Oral , Taking BUPROPION HYDROCHLORIDE ER (XL) 150 MG TB24 , Notes to Pharmacist: *Reorder from [employer] for eRx and Interaction Alerts*, Taking Rosuvastatin Calcium 5 MG Tablet Oral , Taking Omeprazole 40 MG Capsule Delayed Release Oral , Taking FLUZONE HIGH-DOSE QUAD 2020-21 (PF) 240 MCG/0.7 ML IM SYRINGE , Notes to Pharmacist: *Reorder from [employer] for eRx and Interaction Alerts*, Discontinued NALTREXONE HCL 50 MG TABS , Notes to Pharmacist: *Reorder from [facility] [facility] Interaction Alerts*, Medication List reviewed and reconciled with the patient * Allergies: N .K.D.A. Objective: * Vitals: B P:130/77mm Hg, HR:81/min, Wt:215lbs, Wt-k.52 kg, Ht: 70.00 in, Ht-cm: 177.80 cm, BMI:30.85Index, Body Surface Area: 2.19. * Examination: P sychiatry: Appearance: w ell-groomed, well-nourished, appears stated age. Abnormal body movements: n one. Affect / mood: a ppropriate, full range. Aggression: l ow. Anger control: g ood. Attention: g ood. Attitude: c ooperative. Homicidal ideation: n one. Suicidal ideation: n one. Memory status: n o impairment noted patient reported lapse short term with name and why go into a room 3 president Nichole Seo days week backwards 11/22. Degree of awareness of surroundings: w ithin normal limits.? Delusions: n o. Hallucinations: n o. Impulse control: g ood. Insight: g ood. Intellectual functioning: a verage. Comprehension - Intellectual function: a verage. Judgement: g ood. Orientation: a wake, alert and oriented x 3. Perceptual disorders: n o perceptual disorder noted. Psychomotor activity: w ithin normal range. Sexual impulse control: g ood. Speech / language: a ppropriate pitch/modulation, clear and coherent, normal rate, volume, and articulation (RVR), proper grammar used. Thought content: a ppropriate. Thought process: i ntact. Assessment: * Assessment: 1. 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 A lcohol dependence, in remission - F10.21 4 . I nsomnia due to other mental disorder - F51.05 5 . 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 E levated blood pressure reading - R03.0 presently taking Naltrexone 50 mg daily, Wellbutrin XL 150mg in am, Abilify 5 mg daily 1. Bipolar- W ellbutrin XL 150mg in am, Abilify 5 mg daily 2. Anxiety Wellbutrin 3. Insomnia- Melatonin 10 mg OTC naps in day and sleep in chair in evening 4. Alcohol- remission- Naltrexone 50 mg daily educated on all medications, benefits, side effects and risk, and educated on depression, anxiety, and ADHD, mood d/o and educated on compliance of medications, metabolic and movement d/o education appointment is, continue therapy discussion with patient about course of treatment and patient instructions. education on serotonin syndrome SSRI/SNRI side effects discussed including but not limited to, gastric upset, nausea, vomiting, diarrhea and/or constipation, weight changes, sexual side effects including loss of libido, increased suicidal thoughts/behaviors in children and young adults, and serotonin syndrome. Second generation antipsychotics (SGAs) have metabolic syndrome issues with weight gain, increase in prolactin, increased waist circumference, increased lipids, and increased glucose. Thus routine monitoring of weight, metabolic labs, etc. is indicated. A general rank ordering of antipsychotics that have the greatest to the least risk of metabolic effects is olanzapine, quetiapine, risperidone, ziprasidone, and aripiprazole. However, weight gain can occur with all of these drugs and considerable variability exists among patients receiving the same drug regarding the risk of metabolic effects. Anti-psychotic agents not only increase the risk of metabolic disorder, they also increase the risk of CVA, akathisia, and movement disorders including EPS or tardive dyskinesia (more common with first generation antipsychotics) and more. Elderly- discussed risks, cognition, sedation, falls, metabolic, movement and atypical antipsychotics carry a black-box warning for increased risk of and cerebrovascular events in dementia. Medication Management and Follow-Up - Plan: - Schedule follow-up appointments every 1-3 months to monitor the patient's response to the medication regimen. - Reinforce the importance of avoiding recreational drug use due to potential neurotoxicity and interactions with prescribed medications. Plan: * Treatment: 2. A lcohol dependence, in remission Refill Naltrexone HCl Tablet, 50 MG, 1 tablet, Oral, Once a day, 90 days, 90 Tablet, Refills 1.? * Procedure Codes: 9 6127 BEHAV ASSMT W/SCORE & DOCD/STAND INSTRUMENT, G2211 VISIT COMPLEXITY INHERENT TO ONGOING CARE RELATED TO A PATIENT'S SINGLE, SERIOUS CONDITION OR A COMPLEX CONDITION * Preventive Medicine: Counseling: B P Management: F IRST HYPERTENSIVE BP READING FOLLOW-UP PLAN: F ollow-up 1 month Follow up with your PCP, Flako HOPSON RECOMMENDATION: Flako hopson education, REFERRAL TO ALTERNATIVE / PRIMARY CARE PROVIDER: R eferral to general medical service educated on healthy b/p 120/80monitor b/p at homerefer to PCP, Urgent care/ERheart healthy diet and exciselimit salt intakelimit soda intake and caffieneincrease water. * Follow Up: 6 Months (Reason: f/u rx) * Billing Information: * Visit Code: 23869 OFFICE OUTPATIENT VISIT 25 MINUTES DETAILED HISTORY AND EXAM/MODERATE MEDICAL DECISION MAKING. * Procedure Codes: 61185 BEHAV ASSMT W/SCORE & DOCD/STAND INSTRUMENT. G2211 VISIT COMPLEXITY INHERENT TO ONGOING CARE RELATED TO A PATIENT'S SINGLE, SERIOUS CONDITION OR A COMPLEX CONDITION. * ARIAN SPECIALIST Sign off status: Completed true * Provider: KIM GIBBONS Date: 1 05/23/2023 Generated for John olivares/Gautam/Chayitting on: 0 07/27/2024 07:42 AM CDT History and Physical Notes * HPI (History of Present Illness) Category Sub-Category Detail Notes Category Not es Depression screening PHQ-9 Little inte rest or pleasure in doing things: Not at all Feeling down, depressed, or hopeless: No t at all Trouble falling or staying asleep, or sl eeping too much: Nearly every day Feeling tired or having little energy: N ot at all Poor appetite or overeating: Not at all Feeling bad about yourself o r that you are a failure, or have let yourself or your family down: Not at all Trouble concentrating on thi ngs, such as reading the newspaper or watching television: Not at all Moving or speaking so slowly that other people could have noticed; or the opposite, being so fidgety or restless that you have been moving around a lot more than usual: Not at all Thoughts that you would be b daquan off or of hurting yourself in some way: Not at all Total Score: 3 Interpretation: Minimal Depression Intervention Depression Screening Findings: N egative Suicide Risk Assessment Performed: ____ Depression Screening HANK-7 (2018 Edition) Feeling nervous, anxious, or on edge: Not at all Follow up bipolar depression, anxiety, sleep chronic since last visit reported I been doing pretty good and feel even mood, no sean no hypomania, no psychosis no sad or down, no hopeless or helpless, time change adjusting, and I am getting used to dark early in afternoon, sleep not well, I have trouble fall and stay asleep average 3-4 hours at a time and 6 hours total, and naps in afternoon, appetite good, weight stable, concentrate and focus no issues I do have short term memory lapse, daily, I do not watch news, I have hard time at time with word or why I go into kitchen, no irritable or agitation, and motivation and interest ok, toelrating all rx no s/e, and energy ok, depend on stagima and physical chores, no SI/HI, I am to see PCP and labs. I take Melatonin 10 mg at bedtime and I do nap in chair in eveing and fall asleep then bed I am think and I go to meetings AA and no urges or relapses and no issues ETOH, rx helps denies SI/HI no plans or intent ETOH- remission 04/2018 Smoking former labs- none recently drugs- denies presently taking Naltrexone 50 mg daily, Wellbutrin XL 150mg in am, Abilify 5 mg daily rx hx Naltrexone, Wellbutrin, Abilify Not being able to stop or control worryi ng: Not at all Worrying too much about different things : Not at all Trouble relaxing: Not at all Being so restless that it is hard to sit still: Not at all Becoming easily annoyed or irritable: No t at all Feeling afraid as if something awful alfredo ht happen: Not at all Total HANK-7 Score: 0 If you checked any problems, how difficult have they made it for you to do your work, take care of things at home, or get along with other people?: Not difficult at all Interpretation of Total: (0 to 4) No Anx iety [place]-Suicide Severity Rating Scale Suicide Risk (CSRS-screener) in the past one month Have you wished you were or wished you could go to sleep and not wake up?: No in the past one month Have y ou actually had any thoughts of killing yourself?: No Have you ever done anything, started to do anything, or prepared to do anything to end your life?: No Examination Category Sub-Category Detail Notes Category Not es Psychiatry Appearance: well-groomed, we ll-nourished, appears stated age Attitude: cooperative Psychomotor activity: within normal rang e Abnormal body movements: none Attention: good Degree of awareness of surroundings: wit hin normal limits Orientation: awake, alert and renny ented x 3 Affect / mood: appropriate, full ra nge Speech / language: appropriate pitch/mo dulation, clear and coherent, normal rate, volume, and articulation (RVR), proper grammar used Insight: good Judgement: good Thought process: intact Thought content: appropriate Perceptual disorders: no perceptual diso rder noted Aggression: low Anger control: good Suicidal ideation: none Homicidal ideation: none Intellectual functioning: average Impulse control: good Sexual impulse control: good Memory status: no impairment noted patient reported lapse short term with name and why go into a room 3 president Nichole Seo days week backwards 11/22 Delusions: no Hallucinations: no Comprehension - Intellectual function: a verage
--- OUTSIDE RECORDS SUMMARY | 2024-07-27 07:42 | XMS_ITS | Clinical Summary ---
Author Organization [facility] Address [address] [place] [address] Care Team Providers Care Infusion Rn Name Role Phone Unavailable Primary Care Provider Unavailabl e Social History Tobacco Use Types Packs/Day Years Used Date Smoking Tobacco: Never Assessed Sex and Gender Information Value Date Recorded Sex Assigned at Not on file Legal Sex Male 7:42 PM CDT Gender Identity Not on file Sexual Orientation Not on file Plan of Treatment Health Maintenance Due Date Last Done Comments Hepatitis C 1962 DTaP, Tdap and Td Vaccines ( 1 - Tdap) 08/03/1963 Zoster Vaccines (1 of 2) 1994 Pneumococcal Vaccine: 65+ Ye ars (1 of 1 - PCV) 2009 RSV Immunization or 60+ Years (1 - 1-dose 75+ series) 08/03/2019 COVID-19 Vaccine (2023-2 5 season) 2024 Influenza Adult (#1) 2024 Meningococcal B Vaccine Aged Out No l onger eligible based on patient's age to complete this topic Meningococcal Vaccine Aged Out No adrienne joshua eligible based on patient's age to complete this topic RSV Immunizations Under 20 Months Aged Out No longer eligible based on patient's age to complete this topic
--- OUTSIDE RECORDS SUMMARY | 2024-07-27 07:42 | XMS_ITS | Continuity of Care Document ---
Author Organization [facility] Address [address] [place] [address] Phone Care Team Providers Care Manager Of Loss Prevention Operations Name Role Phone Head OD, Karan Unavailable Unavailable Procedures Procedure Date Eye Exam & Treatment Eye Exam & Treatment Refraction Eye Exam Established Pt Eye Exam & Treatment Refraction Eye Exam, New Patient Advance Directives Directive Yes / No Effective Date File Name No Information Encounters Encounter Description Practice Location Reason(s) For Visit Diagnoses Date Provider Providers Copied on Encounter [facility], [address] [place] [address] [address], [place], [place], [id number], [place] tel:[phone] [facility] No Information 7-201 0 Head OD Karan. [address] , [address], [place], [place], [facility], [place]. tel:[phone] [facility], [address], [place], [place], [id number], [place] tel:[phone] [facility] No Information 0-200 9 Head OD Karan. [address] , [address], [place], [address], [place]. tel:[phone] [facility], [address], [place], [place], [id number], [place] tel:[phone] [facility] No Information Apr-1 7-200 8 Head OD Karan. [address] , [address], [place], [place], [facility], . tel:[phone] [facility], [address], [place], [place], [id number], tel:[phone] [facility] No Information Mar-0 6-200 8 Head OD Karan. [address] [facility] [address] , [address], [place], [place], [facility], [place]. tel:[phone] [facility], [address], [place], [place], [address], tel:[phone] [facility] No Information Feb-2 6-200 8 Perez Lara. [address] [facility] , [address], [place], [place], [facility], [place]. tel:[phone] Family History Family Member Type Diagnosis Age At Onset No Information Payers Payer name Insurance type Covered republican ID Authoriza tion(s) No Information Social History Type Description Quantity Date Captured Comments Sex Male Smoking Status No Information Chief Complaint And Reason For Visit No Information Reason For Referral Reason For Referral No Information History Of Present Illness Encounter Date Complaint History Of Prese nt Illness No Information Functional Status Date Functional Assessmen t No Information Instructions Date Instruction Additional Infor mation No Information Assessments Type Assessment Date No Information Patient Care Teams Name Effective Dates (start - stop) Status Members No Information
--- OUTSIDE RECORDS SUMMARY | 2024-07-27 07:43 | XMS_ITS ---
Author Organization [facility] Address [address] [place] [address] [address] Care Team Providers Care Computer Hardware Designer Name Role Phone Rama Dacosta MD Primary Care Provider Monae Dacosta Unavailable [phone] Migration, Provider Unavailable Unavailable REASON FOR VISIT EMR-Scar Social History Sex Assigned At : Social History Observation Description Sex Assigned At Male Encounters Encounter Location Date Provider Diagnosis [address] [address] 10/04/2023 Provider Migration Plan Of Treatment Next Appt Details Provider Name:Monae Quinteros , 09/21/2024 11:45:00 AM, [facility] [address], [address], [address], Progress Notes * OSMANI SRINIVASADOB:1945 (78 yo M)Acc No.[id number]:10/04/2023 Patient: SRINIVASA COLLINS :1945 A ge:78 Y S ex:Male Address:[address] [place], [address] Subjective: * Chief Complaints: * E MR-Scar * Medical History: * Surgical History: * Hospitalization/Major Diagno stic Procedure: * Medications: Objective: * Vitals: * Physical Examination: Assessment: Plan: * Treatment: * Procedure Codes: * true * Date: Generated for Printi ng/Faxing/eTransmitting on: 0 07/27/2024 07:43 AM CDT
--- OUTSIDE RECORDS SUMMARY | 2024-07-27 07:43 | XMS_ITS | Referral Summary ---
Author Organization [address] Address [address] [place] [address] Care Team Providers Care Manual Control Auger Press Operator Name Role Phone Rama Dacosta MD Primary Care Provider [phone] Allergies No known active allergies Medications ARIPiprazole [...] Seasonal allergic rhinitis due to pollen 021 Social History Tobacco Use Types Packs/Day Years Used Date Smoking Tobacco: Former Cigarettes Q uit: 2017 Smokeless Tobacco: Never Personal Safety Answer Date Recorded Getting School Help Needed Not on file 08/01 Sex and Gender Information Value Date Recorded Sex Assigned at Not on file Legal Sex Male 12:48 PM MEDICAL ASSISTING PROGRAM DIRECTOR Gender Identity Not on file Sexual Orientation Not on file Last Filed Vital Signs Vital Sign Reading [...] Plan of Treatment Not on file Insurance Care Teams Manual Control Auger Press Operator Relationship Specialty Start Date End Date Rama Dacosta MD PCP - General Family Medicine 08/10/20
--- OUTSIDE RECORDS SUMMARY | 2024-07-27 07:43 | XMS_ITS | Clinical Summary ---
Author Organization [facility] [employer] Address [address] [facility] [place] [place] [address] Care Team Providers Care Non Morse Intercept Technician Name Role Phone Rama Dacosta MD Primary Care Provider [phone] Source Comments [facility],non-owned Affiliates and Associated Physician Practices is amultiple site organization consisting of ambulatory clinics and hospital sitesin [place], [place], [place] and [place]. This disclosure is being madepursuant to the Care Everywhere program and may not contain all information available regarding this patient. Last updated 18.[facility] Immunizations Name Administration Dates Next Due INFLUENZA [...] (1 - Tdap) 08/03/1963 PNEUMOCOCCAL VACCINE 50+ (1 of 1 - PCV) 1994 ZOSTER VACCINE (1 of 2) 1994 Respiratory Syncytial Virus (RSV) Vaccine Pt: or over 60 yrs (1 - 1-dose 75+ series) 08/03/2019 COVID-19 VACCINE ( - 2023-2 5 season) 2024 INFLUENZA VACCINE (#1) 2024 04/22/2016 DEPRESSION SCREENING 05/19/2024 MEDICARE AWV CALENDAR YEAR 2024 HEPATITIS B VACCINE Aged Out No longe r eligible based on patient's age to complete this topic HIB VACCINE Aged Out No longer eligi ble based on patient's age to complete this topic HPV VACCINE Aged Out No longer eligi ble based on patient's age to complete this topic MENINGOCOCCAL (Group B) VACCINE Aged Out No longer eligible based on patient's age to complete this topic MENINGOCOCCAL VACCINE Aged Out No adrienne joshua eligible based on patient's age to complete this topic Care Teams Non Morse Intercept Technician Relationship Specialty Start Date End Date Rama Dacosta MD [address] [place] [address] PCP - General Family Medicine 04/22/16
--- OUTSIDE RECORDS SUMMARY | 2024-07-27 07:43 | XMS_ITS ---
Author Organization [facility] [employer] Address [address] [facility] [address] [place] [address] Care Team Providers Care Special Services Agent Name Role Phone Rmaa Dacosta MD Primary Care Provider Monae Dacosta Unavailable [phone] Migration, Provider Unavailable Unavailable REASON FOR VISIT EMR-Scar Medications Medication SIG (Take, Route, Frequency, Duration) Notes Start Date End Date Status FLUZONE HIGH-DOSE QUAD 2019-21 (PF) 240 MCG/0.7 ML IM SYRINGE *Reorder from [employer] for eRx and Interaction Alerts* 09/23/2023 Active Fluticasone Propionate Diskus 50 MCG/ACT Inhalation *Reorder from [employer] for eRx and Interaction Alerts* 09/23/2023 Active Ketoconazole 2% External 09/23/2023 Act suma Mometasone Furoate 0.1 % External 09/23/2023 Active ARIPiprazole 5 MG Oral 09/23/2023 A ctive Naltrexone HCl 50 MG Oral 09/23/2023 Active Rosuvastatin Calcium 5 MG Oral 09/23/2023 Active Omeprazole 40 MG Oral 09/23/2023 Ac tive NALTREXONE HCL 50 MG TABS *Reorder from [employer] for eRx and Interaction Alerts* 09/23/2023 Active buPROPion HCl ER (XL) 150 MG Oral 09/23/2023 Active Desonide 0.05 % External 09/23/2023 Act suma BUPROPION HYDROCHLORIDE ER (XL) 150 MG TB24 *Reorder from [employer] for eRx and Interaction Alerts* 09/23/2023 Active Social History Sex Assigned At : Social History Observation Description Sex Assigned At Male Encounters Encounter [facility] [address] [place] [address] 10/05/2023 Provider Migration Plan Of Treatment Next Appt Details Provider Name:Monae Quinteros , 09/21/2024 11:45:00 AM, [address], [place], [address], Progress Notes * SRINIVASA KEENDOB:1945 (78 yo M)Acc No.[id number]:10/05/2023 Patient: SRINIVASA COLLINS :1945 A ge:78 Y S ex:Male Address:[address] [place] [address], [address] Subjective: * Chief Complaints: * E MR-Scar * Medical History: * Surgical History: * Hospitalization/Major Diagno stic Procedure: * Social History: M igrated Social History: M igrated Social History: Alcohol Intake: None 04/30/2018,Tobacco Years: Former smoker 04/30/2018,Smoking Status: 40 03/20/2023. * Medications: T akingFluticasone Propionate Diskus 50 MCG/ACT Aerosol Powder Breath Activated Inhalation , Notes to Pharmacist: *[facility]*Desonide 0.05 % Lotion External Naltrexone HCl 50 MG Tablet Oral Ketoconazole 2% Shampoo External Mometasone Furoate 0.1 % Cream External buPROPion HCl ER (XL) 150 MG Tablet Extended Release 24 Hour Oral ARIPiprazole 5 MG Tablet Oral BUPROPION HYDROCHLORIDE ER (XL) 150 MG TB24 , Notes to Pharmacist: *Reorder from [employer] for eRx and Interaction Alerts*Rosuvastatin Calcium 5 MG Tablet Oral Omeprazole 40 MG Capsule Delayed Release Oral FLUZONE HIGH-DOSE QUAD 2020-21 (PF) 240 MCG/0.7 ML IM SYRINGE , Notes to Pharmacist: *[facility]*NALTREXONE HCL 50 MG TABS , Notes to Pharmacist: *[facility]*Taking Fluticasone Propionate Diskus 50 MCG/ACT Aerosol Powder Breath Activated Inhalation , Notes to Pharmacist: *Reorder from [employer] for eRx and Interaction Alerts*Taking Desonide 0.05 % Lotion External Taking Naltrexone HCl 50 MG Tablet Oral Taking Ketoconazole 2% Shampoo External Taking Mometasone Furoate 0.1 % Cream External Taking buPROPion HCl ER (XL) 150 MG Tablet Extended Release 24 Hour Oral Taking ARIPiprazole 5 MG Tablet Oral Taking BUPROPION HYDROCHLORIDE ER (XL) 150 MG TB24 , Notes to Pharmacist: *Reorder from [facility] for eRx and Interaction Alerts*Taking Rosuvastatin Calcium 5 MG Tablet Oral Taking Omeprazole 40 MG Capsule Delayed Release Oral Taking FLUZONE HIGH-DOSE QUAD 2020- (PF) 240 MCG/0.7 ML IM SYRINGE , Notes to Pharmacist: *Reorder from [facility] for eRx and Interaction Alerts*Taking NALTREXONE HCL 50 MG TABS , Notes to Pharmacist: *Reorder from [facility] for eRx and Interaction Alerts* Objective: * Vitals: * Physical Examination: Assessment: Plan: * Treatment: * Procedure Codes: * true * Date: Generated for John olivares/Gautam/Chayitting on: 0 07/27/2024 07:42 AM CDT
--- NOTE | 2024-08-26 10:29 | P.SLEEP_ITS ---
Sleep Study Date of Study: 07/27/24 Ordering Provider: Angelica iKmball PA-C Interpreting Physician: Shayna Vale DO Sleep Study Type: Split Polysomnogram Height: 1.78 m Weight: 92.986 kg Body Mass Index: 29.4 Neck Circumference (inches): 17 [place]: 12 Reason for Sleep Study Daytime hypersomnia Sleep History The patient is an 79-year-old male that had a sleep study ordered by his primary care for evaluation sleep apnea. The patient rarely awakens from sleep short of breath. He rarely awakens at night with heartburn belching or cough. He rarely wakes up gasping for air throughout the night. He rarely has excessive sweating at night. He rarely has heart palpitations or irregular heartbeats during the night. He occasionally falls asleep during the day but rarely while driving. He denies cataplexy. He rarely feels unable to move waking up or falling asleep. He rarely experiences vivid dreamlike scenes upon awakening or falling asleep. He rarely has. He rarely remembers his dreams. He occasionally has thoughts racing through his mind. He rarely feels sad, depressed or anxious. He occasionally has muscular tension. He rarely notices parts of his body jerk. He denies kicking during the night. He rarely has crawling and aching feelings in his and rarely has leg pain during. He rarely is bothered by pain during the day never awakened by pain during the night. He occasionally wakes up feeling stiff in the morning. He occasionally wakes up with sore or achy muscles. He occasionally wakes up with pain in the neck, spine or other joints. He goes to bed between midnight to 2:00 a.m. on both weekdays and weekends. It takes him 5-10 minutes to fall asleep. He wakes up 2-3 times throughout the night to urinate and is able to fall back asleep within 10 minutes. He wakes up between 9-10 a.m. on both weekdays and weekends. He typically gets 5-6 hours of sleep per night. He does not stay after waking up in the morning. He currently lives with his . He denies consuming any caffeinated beverages within 2 hours of bedtime. He denies engaging in physical exercise before bedtime. He will read watch television before falling asleep. He will take naps in after noon or the evening. He consumes 1-2 cups of a caffeinated beverage per day. He quit smoking cigarettes 7 years ago. He denies alcohol and recreational drug use. [facility] Past Medical History Medical History Left knee DJD Right knee DJD Overweight (BMI 25.0-29.9) Insomnia Encounter for immunization Seborrheic keratoses KERRIE (obstructive sleep apnea) Persistent cough for 3 weeks or longer Allergic rhinitis Alcohol abuse Essential hypertension Gastroesophageal reflux disease Hyperlipidemia, unspecified Major depressive disorder, single episode, unspecified Prediabetes Thrombocytopenia Surgical History Surgical History History of appendectomy H/O colonoscopy with polypectomy Family History Family History Mother Family history of osteoporosis Father Family history of hearing loss Social History Social History Smoking packs per day: 1 Smoking cigarettes per day: 20.0 Years smoked: 15 Smoking pack-years: 15.00 Smoking status: Former smoker (stopped 5 years Smoked 20 years 1ppd) Tobacco type: cigarettes Second hand tobacco smoke exposure: No Smoking end date: 05/19/15 Alcohol intake: former Substance use: never Substance use type: does not use Lack of Transportation: No Lack of Food: Never True Current Housing: I Have Housing Concerned About Future Housing: No Difficulty Paying Gas/Electric Bills: No Difficulty Paying for Meds: No Currently Unemployed: No Education: Bachelor's Degree Difficulty w/ Childcare or Family Care: No Living arrangements: with family Gender identity (if verbalized by the patient): Male Spiritual care concerns: No Medications Home Medications ?Medication ?Instructions ?Recorded ?Confirmed ?Type aripiprazole 5 mg tablet 5 mg PO QPM 11/29/19 04/19/24 History bupropion HCl 150 mg 24 hr tablet, 150 mg PO QAM 11/29/19 04/19/24 History extended release naltrexone 50 mg tablet 50 mg PO DAILY 11/29/19 04/19/24 History ketoconazole 2 % shampoo 1 applic topical 2XW PRN Outbreak 06/07/20 04/19/24 His tory desonide 0.05 % lotion 1 applic topical DAILY PRN Rash 11/21/20 04/19/24 History melatonin 10 mg capsule 10 mg PO QHS 11/21/20 04/19/24 History bolkwvuu-rkzplmly-maphg acid 400 1 tablet PO DAILY 11/21/20 04/19/24 History mcg-vit K 20 mcg-lycop 300 mcg tablet (One-A-Day Men's Multivitamin) Glucosamine Chondroitin 1 cap PO DAILY 06/18/21 04/19/24 History bioflavonoids 200 mg capsule 200 mg PO DAILY 06/18/21 04/19/24 History aspirin 81 mg tablet,delayed 81 mg PO DAILY #30 tabs 04/07/23 04/19/24 Rx release omeprazole 40 mg capsule,delayed 40 mg PO QPM #90 caps 11/24/23 04/19/24 Rx release loratadine 10 mg tablet 10 mg PO QPM #90 tabs 03/09/24 04/19/24 Rx rosuvastatin 5 mg tablet 5 mg PO DAILY #30 tabs 07/11/24 Rx Sleep Procedure A full night split study using the [employer] multi-channel system recorded the standard physiologic parameters including EEG, EOG, submentalis EMG, anterior tibialis EMG, EKG, body position, nasal and oral airflow using nasal pressure sensor and thermistor.? Respiratory parameters of chest and abdominal movements were recorded with Respiratory Inductance Plethysmography belts. Oxygen saturation was recorded by pulse oximetry. Video monitoring was also performed. Sleep stages, periodic limb movements, and EEG arousals were scored in 30 second epochs according to the criteria of the AASM Scoring Manual. The Apnea-Hypopnea Index was calculated using CMS guidelines for definition of hypopnea with 4% O2 desaturations while scoring respiratory events. Sleep Architecture During the diagnostic portion of the study, the total recording time was 168.3 minutes. The total sleep time was 129.0 minutes. Sleep latency was 6.3 minutes.? REM latency was 47.0 minutes. Sleep Efficiency was 76.7%. The patient had 21 awakenings for an awakening index of 9.8. Wake after sleep onset time was 33.0 minutes. The patient spent 16.5 minutes, 12.8% of total sleep time in Stage N1. The patient spent 96.0 minutes, 74.4% in Stage N2. The patient spent 2.0 minutes, 1.6% in Stage N3. The patient spent 14.5 minutes, 11.2% in Stage REM sleep. At 02:17:38 AM the patient was placed on PAP treatment and was titrated at pressures ranging from 5 cm H20 up to 11 cm H20. During the treatment portion of the study, the total recording time was 303.0 minutes.? The total sleep time was 252.5 minutes. Sleep latency was 10.5 minutes. REM latency was 45.0 minutes. Sleep Efficiency was 83.3%. Wake after Sleep Onset time was 39.5 minutes. The patient spent 19.0 minutes, 7.5% of total sleep time in Stage N1. The patient spent 161.5 minutes, 64.0% in Stage N2. The patient spent 1.0 minutes, 0.4% in Stage N3. The patient spent 71.0 minutes, 28.1% in Stage REM. Respiratory Analysis During the diagnostic portion of the study, the patient had 39 hypopneas, 14 obstructive apneas, 12 mixed apneas, and 15 central apneas for an overall Apnea Hypopnea Index of 37.2 events per hour. The REM Apnea Hypopnea Index was 24.8. The NREM Apnea Hypopnea Index was 38.8. The patient had a Central Apnea Hypopnea Index of 7.0. Doenll-Pacheco Respirations were present. The patient had a cycle length of 50.4 seconds and a circulation time of 20.5 seconds. During the treatment portion of the study, the patient had 2 hypopneas, 3 obstructive apneas, 1 mixed apnea and 1 central apneas for an overall Apnea Hypopnea Index of 1.7 events per hour. The REM Apnea Hypopnea Index was 0.8. The NREM Apnea Hypopnea Index was 2.0. The patient had a Central Apnea Hypopnea Index of 0.2. There was no evidence of Donell-Pacheco Respirations. The patient was started on CPAP 5 cm H2O and titrated to CPAP 11 cm H2O due to hypopneas. The patient was able fall asleep starting on CPAP 5 cm H2O. The patient was able to achieve REM sleep starting on CPAP 5 cm H2O. The patient was able to achieve a residual AHI less than 5 with both NREM and REM sleep in the supine position on multiple pressures. On CPAP 5 cm H2O, the patient spent 47.5 minutes in NREM and 38 minutes in REM with 1 central apnea and 1 hypopnea, resulting in an AHI of 1.4. On CPAP 6 cm H2O, the patient spent 30.5 minutes in NREM and 11.5 minutes in REM with no respiratory events, resulting in an AHI of 0. The patient had a sleep efficiency of 82.6% on 5 cm H2O and 85.7% on 6 cm H2O. Arousals During the diagnostic portion of the study, there were a total of 70 arousals for an arousal index of 32.6.? There were 28 respiratory arousals for an index of 13.0. There were 0 periodic limb movement arousals for an index of 0.? There were 0 isolated limb movement arousals for an index of 0. There were 42 spontaneous arousals for an index of 19.5. During the treatment portion of the study, there were a total of 71 arousals for an index of 16.9.? There were 8 respiratory arousals for an index of 1.9. There were 16 periodic limb movement arousals for an index of 3.8.? There were 2 isolated limb movement arousals for an index of 0.5. There were 45 spontaneous arousals for an index of 10.7. Periodic Limb Movements During the diagnostic portion of the study, the patient had 3 isolated limb movements with an index of 1.4. The patient had 0 periodic limb movements with an index of 0. The patient had a total of 3 limb movements with a total limb movement index of 1.4. During the treatment portion of the study, the patient had 24 isolated limb movements with an index of 5.7. The patient had 91 periodic limb movements with an index of 21.6, which is elevated (normal < 15). The patient had a total of 115 limb movements with a total limb movement index of 27.3. Oximetry Data During the diagnostic portion of the study, the patient had an average oxygen saturation of 91.8% in wake with a minimum oxygen saturation of 78% and a maximum oxygen saturation of 99%. The patient had an average oxygen saturation of 89.6% in sleep with a minimum oxygen saturation of 75.0% and a maximum oxygen saturation of 96.0%. The patient had 85 oxygen desaturations resulting in an Oxygen Desaturation Index of 39.5. The patient spent 52.8 minutes, 32.4% of total sleep time with an oxygen saturation less than 88%. During the treatment portion of the study, the patient had an average oxygen saturation of 93.7% in wake with a minimum oxygen saturation of 86.0% and a maximum oxygen saturation of 98.0%. The patient had an average oxygen saturation of 91.8% in sleep with a minimum oxygen saturation of 88.0% and a maximum oxygen saturation of 97.0%. The patient had 8 oxygen desaturations resulting in an Oxygen Desaturation Index of 1.9. The patient spent 0.7 minutes, 0.2% of total sleep time with an oxygen saturation less than 88%. Snoring Profile Mild snoring was present intermittently in the baseline portion of the snoring. The snoring resolved once the patient was started on CPAP therapy. Cardiac Profile The EKG lead showed normal sinus rhythm. No arrhythmias or premature beats were seen. During the diagnostic portion of the study, the average pulse rate was 71.9 bpm.? The minimum pulse rate was 62.0 bpm. The maximum pulse rate was 81.0 bpm. During the treatment portion of the study, the average pulse rate was 73.1 bpm.? The minimum pulse rate was 64.0 bpm. The maximum pulse rate was 95.0 bpm. EEG Profile No signs of seizure activity seen. Assessment and Plan Assessment and Plan (1) KERRIE (obstructive sleep apnea): Code(s): G47.33 - Obstructive sleep apnea (adult) (pediatric) Status: Acute Assessment and Plan: In the baseline portion of the study, the patient had an AHI of 37.2 with desaturation to 75%. This is consistent with severe sleep apnea. The patient was started on CPAP 5 cm H2O and titrated to CPAP 11 cm H2O due to hypopneas. I recommend that the patient be prescribed CPAP 6 cm H2O, size medium Resmed AirFit F20 FFM, CPAP filters/tubing and heated humidity. This should be used with all episodes of sleep.? Compliance should be reviewed within 31-90 days of starting therapy for usage greater than 4 hours per night greater than 70% of the nights. The patient should be asked about symptoms such as?excessive daytime sleepiness, quality of sleep, decreased nocturia, increased?mental functioning such as memory, mood, and concentration. (2) GALLERY INTERN (Donell Pacheco respiration): Code(s): R06.3 - Periodic breathing Status: Acute Assessment and Plan: The patient had a central apnea index of 7.0, which is elevated (normal < 5). The patient also had Donell Pacheco respirations present during the baseline portion of the study but resolved with CPAP therapy. The patient needs to have an echocardiogram done to rule out cardiogenic causes for an elevated central apnea index and Donell Pacheco respirations. Data The data obtained during this sleep study is adequate for interpretation. Certification This sleep study has been reviewed by a board certified sleep medicine physician.
[2024-08-26 12:17] VITALS: BMI 29.4
== END 2024-07-28 07:46 | disposition home or self-care (01) ==
LOC: ANHCSM 07:39
PROVIDERS: PCP Family Medicine; Visit Provider Student in an Organized Health Care Education/Training Program
DX: G47.10 Hypersomnia, unspecified (principal); G47.33 Obstructive sleep apnea (adult) (pediatric)
CPT/HCPCS: 95811

== ENCOUNTER 2024-10-05 01:19 | Day surgery (SDC) | payer MEDICARE, SELFPAY ==
--- OUTSIDE RECORDS SUMMARY | 2024-10-05 01:21 | XMS_ITS | Clinical Summary ---
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
--- OUTSIDE RECORDS SUMMARY | 2024-10-05 01:21 | XMS_ITS | Encounter Summary ---
Author Organization [facility] Address [address] [facility] [place] [address] Care Team Providers Care Marble Machine Operator Name Role Phone Rama Dacosta MD Primary Care Provider [phone] Encounter Details Date Type Department Care Team (Late st Contact Info) Description 07/08/2018 Lab Requisition [facility] [address] [facility] [address] [facility] [place] [address] Chris Paniagua MD [address] [place] [address] Social History Tobacco Use Types Packs/Day Years Used Date Smoking Tobacco: Never Assessed Sex and Gender Information Value Date Recorded Sex Assigned at Not on file Legal Sex 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:53 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 Gender Identity Not on file Sexual Orientation Not on file documented as of this encounter Plan of Treatment Not on file documented as of this encounter Procedures Procedure Name Priority Date/Time Associated Diagnosis Comments DERMATOPATHOLOGY Routine 07/07/2018 12:0 0 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 documented in this encounter Results * DERMATOPATHOLOGY (07/07/2018 12:00 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) Case Report Dermatopathology Report Case: [id number] Authorizing Provider: Chris Paniagua MD Collected: 07/07/2018 12:00 AM Pathologist: Parth Castellano MD Received: 07/08/2018 12:12 PM Specimen: Skin, left cheek 9 4:22 PM [facility] Final Diagnosis Specimen A. SKIN, left cheek: BENIGN VERRUCOUS KERATOSIS, INFLAMED (L82.1) 9 4:22 PM [facility]MAT[facility] at [address] DOCKET SPECIALIST Clinical History R/O BCC, ISK,SCC 9 4:22 PM [facility] Gross Description Specimen A: Received is one formalin filled container labeled with the patient's name and designated left cheek. The specimen consists of a shave biopsy measuring 8x7x4 mm, bisected. Jar 0. 9 4:22 PM [facility] Microscopic Description Specimen A. SKIN, left cheek: Sections show hyperkeratosis, papillomatosis, hypergranulosis, and acanthosis. Inflammatory cells are present within the dermis. These histological findings can be seen in a verruca vulgaris or a seborrheic keratosis. 9 4:22 PM [facility] Disclaimer An external and internal positive and negative controls are appropriate for the histochemical, immunohistochemical and immunofluorescence stain(s) in this case (if any), except where stated explicitly. The performance characteristics of the stain(s) cited in this report were developed and its performance characteristic determined by the Dermatopathology Laboratory at [facility], directed by Dr. Shraddha Castellano. These tests need not be, and therefore are not, approved by the [place] Food and Drug Administration. The tests are used for clinical purposes. Billing Codes Specimen Charges Stain Charges 05673 1 9 4:22 PM [facility] Embedded Images 9 4:22 PM [facility] Pathology/Cytolog y TISSUE SPECIMEN FROM SKIN / Unknown 07/07/2018 07/08/2018 12:12 PM [facility] us Chris Paniagua MD LAB - PATHOLOGY/CYTOLOGY ORD ERABLES Final Result DERMATOPATHOLOGY LABORATORY [facility] - Department of Dermatology [address] [place] [address], [address]th [address] Lab [address] [place], [place] [id number] [place] [address] documented in this encounter Visit Diagnoses Not on filedocumented in this encounter Care Teams Marble Machine Operator Relationship Specialty Start Date End Date Rama Dacosta MD [address] [place] [address] PCP - General Family Medicine 04/22/16 documented as of this encounter
--- OUTSIDE RECORDS SUMMARY | 2024-10-05 01:21 | XMS_ITS | Clinical Summary ---
Author Organization [facility] Address [address] [place] [address] Care Team Providers Care Global Chief Experience Officer Name Role Phone Unavailable Primary Care Provider Unavailabl e Social History Tobacco Use Types Packs/Day Years Used Date Smoking Tobacco: Never Assessed Sex and Gender Information Value Date Recorded Sex Assigned at Not on file Legal Sex Male 7:42 PM CDT Gender Identity Not on file Sexual Orientation Not on file Plan of Treatment Health Maintenance Due Date Last Done Comments DTaP, Tdap and Td Vaccines ( 1 - Tdap) 08[birth year]03/1964 Pneumococcal Vaccine: 50+ Ye ars (1 of 1 - PCV) 1994 Zoster Vaccines (1 of 2) 1994 RSV Immunization or 60+ Years (1 - 1-dose 75+ series) 08/03/2019 COVID-19 Vaccine ( - 2023-2 5 season) 2024 Meningococcal B Vaccine Aged Out No l onger eligible based on patient's age to complete this topic Meningococcal Vaccine Aged Out No adrienne joshua eligible based on patient's age to complete this topic RSV Immunizations Under 20 Months Aged Out No longer eligible based on patient's age to complete this topic
--- OUTSIDE RECORDS SUMMARY | 2024-10-05 01:22 | XMS_ITS | Clinical Summary ---
Author Organization [facility] Address [address] Lui: Erika Pretayla [place] [address] Care Team Providers Care Landscape Architect Name Role Phone Unavailable Primary Care Provider [...] ears 60 Gram 2 04/24/2022 12:54 PM CUPOLA MELTER 2 Active buPROPion HCL (WELLBUTRIN XL) 150 [...] EVENING. 90 Tablet 3 07/10/2023 11:47 AM CUPOLA MELTER 3 Active fluticasone propionate (FLONASE) 50 mcg/spray [place], Suspension nasal inhaler Administer 1 [place] in each nostril 2 times daily. 16 Gram 11/27/2022 1:14 PM CDT 3 Active ARIPiprazole (ABILIFY) 5 mg tablet TAKE ONE TABLET BY MOUTH AT BEDTIME 90 Tablet 1 07/10/2023 11:47 AM CUPOLA MELTER 3 Active naltrexone (DEPADE) 50 mg tablet [...] by mouth every evening. 90 Capsule 3 09/24/2024 2:53 PM CDT 4 Active ergocalciferol (VITAMIN D2) 50,000 unit capsule Take 1 Capsule (50,000 Units) by mouth every 7 days. 12 Capsule 2 07/19/2024 3:20 PM CUPOLA MELTER 4 Active loratadine (CLARITIN) 10 mg tablet Take 1 Tablet (10 mg) by mouth daily every evening. 90 Tablet 3 09/24/2024 2:53 PM CDT 4 Active buPROPion HCL (WELLBUTRIN XL) 150 mg Extended Release 24 hour tablet Take 1 Tablet (150 mg) by mouth daily in the morning. 90 Tablet 1 06/29/2024 2:18 PM CUPOLA MELTER 4 Active amoxicillin-cl avulanate (AUGMENTIN) 875-125 mg tablet Take 1 Tablet by mouth 2 times daily. 20 Tablet 06/15/2024 2:10 PM CUPOLA MELTER 5 Active rosuvastatin (CRESTOR) 5 mg tablet Take 1 Tablet (5 mg) by mouth daily. 30 Tablet 6 07/12/2024 4:11 PM CUPOLA MELTER 5 Active ARIPiprazole (ABILIFY) 5 mg tablet Take one tablet (5mg) by mouth at bedtime 90 Tablet 1 5 Active buPROPion HCL (WELLBUTRIN XL) 150 mg Extended Release 24 hour tablet Take 1 tablet (150mg) in the morning Oral Once a day for 90 days 90 Tablet 1 5 Active naltrexone (DEPADE) 50 mg tablet Take 1 tablet (50mg) Oral Once a day for 90 days 90 Tablet 1 5 Active ARIPiprazole (ABILIFY) 5 mg tablet Take 1 Tablet (5 mg) by mouth daily at bedtime. 90 Tablet 1 08/22/2024 3:15 PM CDT 4 09/22/19 25 Discontinu ed(Reorder ) naltrexone (DEPADE) 50 mg tablet Take 1 Tablet (50 mg) by mouth daily. 90 Tablet 1 08/04/2024 4:24 PM CDT 4 09/22/19 25 Discontinu ed(Reorder ) Social History Tobacco [...]
--- OUTSIDE RECORDS SUMMARY | 2024-10-05 01:22 | XMS_ITS | Clinical Summary ---
Author Organization [facility] Address [address] [place] [address] Care Team Providers Care Dynamometer Tuner Name Role Phone Rama Dacosta MD Primary Care Provider [phone] Source Comments [facility],non-owned Affiliates and Associated Physician Practices is amultiple site organization consisting of ambulatory clinics and hospital sitesin [place], [place], [place] and [place]. This disclosure is being madepursuant to the Care Everywhere program and may not contain all information available regarding this patient. Last updated 18.[facility] Immunizations Immunization Administration Dates Next Due INFLUENZA VACCINE, HIGH-DOSE , QUADR. 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 Gender Identity Not on file Sexual Orientation [...] VACCINE ( - 2023-2 5 season) 2024 DEPRESSION SCREENING 05/19/2024 INFLUENZA VACCINE (Season Ended) 2025 04/22/20 16 HEPATITIS B VACCINE Aged Out No longe r eligible based on patient's age to complete this topic HIB VACCINE Aged Out No longer eligi ble based on patient's age to complete this topic HPV VACCINE Aged Out No longer eligi ble based on patient's age to complete this topic MENINGOCOCCAL (Group B) VACC INE SHARED DECISION-MAKING Aged Out No longer eligibl e based on patient's age to complete this topic MENINGOCOCCAL GROUPS A/C/Y/W VACCINE Aged Out No longer eligible b ased on patient's age to complete this topic Insurance [employer] [place] [id number] [facility] MANAGED MEDICARE ADV Care Teams Dynamometer Tuner Relationship Specialty Start Date End Date Rama Dacosta MD [address] [place] [address] PCP - General Family Medicine 12/5/16
--- OUTSIDE RECORDS SUMMARY | 2024-10-05 01:22 | XMS_ITS | Continuity of Care Document ---
Author Organization [facility] Eye [facility] Address [address] [place] [address] Phone Care Team Providers Care Puppet Maker Name Role Phone Head OD, Karan Unavailable Unavailable Procedures Procedure Date Eye Exam & Treatment Eye Exam & Treatment Refraction Eye Exam Established Pt Eye Exam & Treatment Refraction Eye Exam, New Patient Advance Directives Directive Yes / No Effective Date File Name No Information Encounters Encounter Description Practice Location Reason(s) For Visit Diagnoses Date Provider Providers Copied on Encounter [facility], [address] [place] [address] [address], [place], [place], [id number], [place] tel:[phone] SEC [facility] No Information 7-201 0 Head OD Karan. [address] , [address], [place], [place], [facility], [place]. tel:[phone] [facility], [address], [place], [place], [address], [place] tel:[phone] SEC [facility] No Information 0-200 9 Head OD Karan. [address] , [address], [place], [address], [place]. tel:[phone] [facility], [address], [place], [place], [address], [place] tel:[phone] SEC [facility] No Information Apr-1 7-200 8 Head OD Karan. [address] , [address], [place], [place], [facility], . tel:[phone] [facility] Eye [facility], [address], [place], [place], [address], tel:[phone] SEC [facility] No Information Mar-0 6-200 8 Head OD Karan. [address] [facility] [address] , [address], [place], [place], [facility], [place]. tel:[phone] [facility] Eye [facility], [address], [place], [place], [id number], tel:[phone] SEC [facility] No Information Feb-2 6-200 8 Perez Lara. [address] [facility] , [address], [place], [place], [facility], [place]. tel:[phone] Family History Family Member Type Diagnosis Age At Onset No Information Payers Payer name Insurance type Covered alliance party ID Authoriza tion(s) No Information Social History [...]
--- OUTSIDE RECORDS SUMMARY | 2024-10-05 01:22 | XMS_ITS | Referral Summary ---
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
[2024-10-05 11:11] VITALS: BP 133/73; PULSE 82; RESP 18; TEMP 36.3; O2SAT 98; BMI 26.9
[2024-10-05] MEDS: LACTATED RINGERS 1,000 ML 150 ML IV CONT (11:27)
--- NOTE | 2024-10-05 11:35 | WPDANESEPPF ---
Anes - Initial Pre Proc Eval Procedure: Operation Date: 10/05/24 12:30 Proposed Procedures p Screening Colonoscopy - Jatin Hureta MD Date/Time: 10/05/24 11:35 Surgeon: Jatin Huerta MD Pre Op Diagnosis: personal hx colon polyps Patient Data Age: 79 Gender: M Height: 1.85 m Weight: 92.8 kg Last Vital Signs Temp 36.3 C L 10/05/24 11:11 Pulse 82 10/05/24 11:11 Resp 18 10/05/24 11:11 BP 133/73 10/05/24 11:11 Pulse Ox 98 10/05/24 11:11 O2 Del Method Room Air 10/05/24 11:11 Allergies Allergy/AdvReac Type Severity Reaction Status Date / Time phenytoin Allergy Unknown Unknown Verified 10/05/24 11:09 Home Medications Medication Instructions Recorded Confirmed Type aripiprazole 5 mg tablet 5 mg PO QPM 11/29/19 10/05/24 History bupropion HCl 150 mg 24 hr tablet, 150 mg PO QAM 11/29/19 10/05/24 History extended release naltrexone 50 mg tablet 50 mg PO DAILY 11/29/19 10/05/24 History ketoconazole 2 % shampoo 1 applic topical 2XW PRN Outbreak 06/07/20 09/28/24 History desonide 0.05 % lotion 1 applic topical DAILY PRN Rash 11/21/20 10/05/24 History melatonin 10 mg capsule 10 mg PO QHS 11/21/20 10/05/24 History Glucosamine Chondroitin 1 cap PO DAILY 06/18/21 10/05/24 History bioflavonoids 200 mg capsule 200 mg PO DAILY 06/18/21 10/05/24 History omeprazole 40 mg capsule,delayed 40 mg PO QPM #90 caps 11/24/23 10/05/24 Rx release loratadine 10 mg tablet 10 mg PO QPM #90 tabs 03/09/24 10/05/24 Rx rosuvastatin 5 mg tablet 5 mg PO DAILY #30 tabs 07/11/24 10/05/24 Rx cetirizine 10 mg tablet (24Hour 10 mg PO DAILY 09/28/24 10/05/24 History Allergy) ergocalciferol (vitamin D2) 1,250 1,250 mcg PO WEEKLY 09/28/24 10/05/24 History mcg (50,000 unit) capsule (Vitamin D2) potassium gluconate 550 mg (90 mg) 550 mg PO DAILY 09/28/24 10/05/24 History tablet Patient hx anesthesia problems: none Family hx anesthesia problems: none Results Review: All pre-operative results and documents have been reviewed as part of the pre-operative evaluation. [facility] Past Medical History Medical History Left knee DJD Right knee DJD Overweight (BMI 25.0-29.9) Insomnia Encounter for immunization Seborrheic keratoses KERRIE (obstructive sleep apnea) Persistent cough for 3 weeks or longer Allergic rhinitis Alcohol abuse Essential hypertension Gastroesophageal reflux disease Hyperlipidemia, unspecified Major depressive disorder, single episode, unspecified Prediabetes Thrombocytopenia Surgical History Surgical History History of appendectomy H/O colonoscopy with polypectomy Family History Family History Mother Family history of osteoporosis Father Family history of hearing loss Social History Social History Smoking packs per day: 1 Smoking cigarettes per day: 20.0 Years smoked: 15 Smoking pack-years: 15.00 Smoking status: Former smoker (stopped 5 years Smoked 20 years 1ppd) Tobacco type: cigarettes Second hand tobacco smoke exposure: No Smoking end date: 05/19/15 Alcohol intake: former Substance use: never Substance use type: does not use Lack of Transportation: No Lack of Food: Never True Current Housing: I Have Housing Concerned About Future Housing: No Difficulty Paying Gas/Electric Bills: No Difficulty Paying for Meds: No Currently Unemployed: No Education: Bachelor's Degree Difficulty w/ Childcare or Family Care: No Living arrangements: with family Gender identity (if verbalized by the patient): Male Spiritual care concerns: No Anes - Eval Final PreProcedure Day of Procedure 10/05/24 11:35 Patient weight: overweight Heart: regular rate and rhythm Lungs: clear to auscultation Airway: Mallampati scale class II Neurological: alert and oriented Last oral intake: >/= 8 hours ASA classification: III Emergent: no Anesthetic plan: proceed Anesthesia type and monitoring: general GIVS and standard monitoring Results Review: All pre-operative results and documents have been reviewed as part of the pre-operative evaluation. Informed Consent: The patient's anesthetic plan and its attendant risks and benefits were discussed with the patient/family/POA. Questions were solicited and answers provided to the satisfaction of the patient/family/POA.
--- NOTE | 2024-10-05 12:29 | PM.IMHP ---
H&P: HPI History of Present Illness Date/Time: 10/05/24 12:29 Chief Complaint: History of colon polyps Narrative: The patient has a history of colonic polyps, the last colonoscopy was 5 years ago. Review of Systems Review of Systems: All systems reviewed & are unremarkable except as noted in HPI and below PMFSH Past Medical History Medical History Left knee DJD Right knee DJD Overweight (BMI 25.0-29.9) Insomnia Encounter for immunization Seborrheic keratoses KERRIE (obstructive sleep apnea) Persistent cough for 3 weeks or longer Allergic rhinitis Alcohol abuse Essential hypertension Gastroesophageal reflux disease Hyperlipidemia, unspecified Major depressive disorder, single episode, unspecified Prediabetes Thrombocytopenia Surgical History Surgical History History of appendectomy H/O colonoscopy with polypectomy Family History Family History Mother Family history of osteoporosis Father Family history of hearing loss Social History Social History Smoking packs per day: 1 Smoking cigarettes per day: 20.0 Years smoked: 15 Smoking pack-years: 15.00 Smoking status: Former smoker (stopped 5 years Smoked 20 years 1ppd) Tobacco type: cigarettes Second hand tobacco smoke exposure: No Smoking end date: 05/19/15 Alcohol intake: former Substance use: never Substance use type: does not use Lack of Transportation: No Lack of Food: Never True Current Housing: I Have Housing Concerned About Future Housing: No Difficulty Paying Gas/Electric Bills: No Difficulty Paying for Meds: No Currently Unemployed: No Education: Bachelor's Degree Difficulty w/ Childcare or Family Care: No Living arrangements: with family Gender identity (if verbalized by the patient): Male Spiritual care concerns: No Meds Home Medications and Allergies Home Medications Medication Instructions Recorded Confirmed Type aripiprazole 5 mg tablet 5 mg PO QPM 11/29/19 10/05/24 History bupropion HCl 150 mg 24 hr tablet, 150 mg PO QAM 11/29/19 10/05/24 History extended release naltrexone 50 mg tablet 50 mg PO DAILY 11/29/19 10/05/24 History ketoconazole 2 % shampoo 1 applic topical 2XW PRN Outbreak 06/07/20 09/28/24 History desonide 0.05 % lotion 1 applic topical DAILY PRN Rash 11/21/20 10/05/24 History melatonin 10 mg capsule 10 mg PO QHS 11/21/20 10/05/24 History Glucosamine Chondroitin 1 cap PO DAILY 06/18/21 10/05/24 History bioflavonoids 200 mg capsule 200 mg PO DAILY 06/18/21 10/05/24 History omeprazole 40 mg capsule,delayed 40 mg PO QPM #90 caps 11/24/23 10/05/24 Rx release loratadine 10 mg tablet 10 mg PO QPM #90 tabs 03/09/24 10/05/24 Rx rosuvastatin 5 mg tablet 5 mg PO DAILY #30 tabs 07/11/24 10/05/24 Rx cetirizine 10 mg tablet (24Hour 10 mg PO DAILY 09/28/24 10/05/24 History Allergy) ergocalciferol (vitamin D2) 1,250 1,250 mcg PO WEEKLY 09/28/24 10/05/24 History mcg (50,000 unit) capsule (Vitamin D2) potassium gluconate 550 mg (90 mg) 550 mg PO DAILY 09/28/24 10/05/24 History tablet Allergies Allergy/AdvReac Type Severity Reaction Status Date / Time phenytoin Allergy Unknown Unknown Verified 10/05/24 11:09 Vital Signs Vital Signs - 24 hr 10/05/24 11:11 Temperature 97.3 F L Pulse Rate 82 Respiratory Rate 18 Blood Pressure 133/73 Pulse Oximetry 98 Oxygen Delivery Room Air Exam Const: General: cooperative and healthy appearing Resp: Effort & Inspection: normal respiratory effort and able to speak in complete sentences Auscultation: clear to auscultation bilaterally Cardio: Rate: regular rate Rhythm: regular rhythm GI: Inspection: normal to inspection GI Palp: No No hepatosplenomegaly present Auscultation: normal bowel sounds Rectal Exam: deferred Skin: General skin exam: normal color Psych: Appearance: grossly normal Mental Status: mental status grossly normal Assessment and Plan Assessment and plan (1) History of colon polyps: Code(s): Z86.010 - Personal history of colon polyps Status: Acute Assessment and Plan: The patient is deemed a good candidate for the procedure. Consent signed. Will proceed.
[2024-10-05 13:08] VITALS: BP 91/46; PULSE 62; RESP 13; O2SAT 99
[2024-10-05 13:18] VITALS: BP 117/68; PULSE 65; RESP 22; O2SAT 99
[2024-10-05 13:28] VITALS: BP 118/63; PULSE 62; RESP 17; O2SAT 100
== END 2024-10-05 13:36 | disposition home or self-care (01) ==
PROVIDERS: PCP Family Medicine; Referring Provider Student in an Organized Health Care Education/Training Program; Visit Provider Internal Medicine Gastroenterology
PROC: 0DJD8ZZ Inspection of Lower Intestinal Tract, Via Natural or Artificial Opening Endoscopic (ICD-10-PCS; CPT 45378; principal; 2024-10-05 12:30)
DX: Z12.11 Encounter for screening for malignant neoplasm of colon (principal); D12.0 Benign neoplasm of cecum; D12.2 Benign neoplasm of ascending colon; D12.5 Benign neoplasm of sigmoid colon; K57.30 Diverticulosis of large intestine without perforation or abscess without bleeding; Z87.891 Personal history of nicotine dependence
CPT/HCPCS: 45385; 88305; J2371; J2704; J7120

== ENCOUNTER 2024-11-29 12:37 | Outpatient (CLI) | payer MEDICARE, SELFPAY ==
--- NOTE | 2024-11-29 12:41 | ECHO_ITS ---
Patient Info Name: Maco Mendoza Age: 79 years : 1945 Gender: Male Ht: 71 in Wt: 211 lbs BSA: 2.21 m2 HR: 79 bpm BP: 124 / 74 mmHg Heart Rhythm: Sinus Rhythm Technical Quality: Fair Exam Date: 11/29/2024 12:47 PM Patient Status: O Admit Date: 11/29/2024 Exam Type: CA echo doppler color flow Complete two-dimensional, color flow and Doppler transthoracic echocardiogram is performed. Ball Thread Machine Tender: Lory Alfonso Attending Provider: Hardeep Thacker Summary 1. Complete two-dimensional, color flow and Doppler transthoracic echocardiogram is performed. 2. Left ventricular chamber dimension is normal. 3. Left ventricular systolic function is normal, estimated at 60-65. 4. There is mild concentric increased left ventricular wall thickness. 5. The left ventricular diastolic function is grade I diastolic dysfunction. 6. E/e' 11 is mildly elevated. 7. Left atrial chamber dimension is mildly enlarged. 8. There is mild aortic valve sclerosis. 9. No pulmonary hypertension, estimated pulmonary arterial systolic pressure is 16 mmHg. Left Ventricle E/e' 11 is mildly elevated. Left ventricular chamber dimension is normal. Left ventricular systolic function is normal, estimated at 60-65. There is mild concentric increased left ventricular wall thickness. The left ventricular diastolic function is grade I diastolic dysfunction. Right Ventricle Right ventricular chamber dimension is normal. Right ventricular systolic function is normal and with normal TAPSE 2.1 cm. Left Atria Left atrial chamber dimension is mildly enlarged. Right Atria Right atrial chamber dimension is normal. Aortic Valve The aortic valve is trileaflet. There is mild aortic valve sclerosis. There is no aortic valve stenosis. There is no aortic valve regurgitation. Pulmonic Valve There is no pulmonic regurgitation. Mitral Valve There is no mitral valve stenosis. There is no mitral valve regurgitation. Tricuspid Valve There is no tricuspid valve regurgitation. No pulmonary hypertension, estimated pulmonary arterial systolic pressure is 16 mmHg. Pericardium/Pleural There is no pericardial effusion. Inferior Vena Cava Normal inferior vena cava with >50% collapse upon inspiration consistent with normal right atrial pressure, 5 mmHg. Aorta The aortic root size at the sinus of Valsalva is normal. Left Ventricular Outflow Tract Name Value Normal LVOT 2D LVOT Diameter 2.0 cm LVOT Doppler LVOT Peak Velocity 124 cm/s LVOT Peak Gradient 6 mmHg LVOT Mean Gradient 3 mmHg LVOT VTI 24 cm LVOT VTI/AV VTI Ratio 0.9 LVOT Stroke Volume 75 ml LVOT CO 4.8 l/min LVOT CI 2.2 l/min/m2 Pulmonic Valve Name Value Normal RVOT Doppler RVOT Peak Velocity 76 cm/s RVOT Peak Gradient 2 mmHg PV Doppler PV Peak Velocity 178 cm/s PV Peak Gradient 13 mmHg Mitral Valve Name Value Normal MV Diastolic Function MV E Peak Velocity 65 cm/s MV A Peak Velocity 94 cm/s MV E/A 0.7 MV Decel Time (PW) 259 ms MV Annular TDI MV E/e' (Septal) 12.8 MV E/e' (Lateral) 10.4 MV E/e' (Average) 11.6 Tricuspid Valve Name Value Normal TV Regurgitation Doppler TR Peak Velocity 166 cm/s TR Peak Gradient 11 mmHg Estimated PAP/RSVP RA Pressure 5 mmHg <=5 PA Systolic Pressure 16 mmHg <36 RV Systolic Pressure 16 mmHg <36 TV Annular TDI TV Lateral Nelda s' Velocity 12.1 cm/s >=9.5 Aortic Valve Name Value Normal AV Doppler AV Peak Velocity 169 cm/s AV Peak Gradient 11 mmHg AV Mean Gradient 5 mmHg AV VTI 28 cm AV Area (Cont Eq VTI) 2.7 cm2 >=3.0 AV Area (Cont Eq [place]) 2.3 cm2 AV DI ([place]) 0.73 AV Regurgitation 2D LVOT Area 3.1 cm2 Ventricles Name Value Normal LV Dimensions 2D/MM IVS Diastolic Thickness (2D) 1.2 cm 0.6-1.0 LVID Diastole (2D) 4.2 cm 4.2-5.8 LVIW Diastolic Thickness (2D) 1.0 cm 0.6-1.0 LVID Systole (2D) 2.7 cm 2.5-4.0 LVOT Diameter 2.0 cm LV Mass (2D Cubed) 159.22 g 88.00-224.00 LV Mass Index (2D Cubed) 72 g/m2 49-115 Relative Wall Thickness (2D) 0.48 <=0.42 LV Fractional Shortening/Ejection Fraction 2D/MM LV Fractional Shortening (2D) 35 % 25-43 LV EF (2D Teichholz) 65 % LV Diastolic Volume (4C MOD) 77 ml LV EF (4C MOD) 71 % LV Diastolic Volume (2C MOD) 93 ml LV EF (2C MOD) 73 % LV Diastolic Volume (BP MOD) 87 ml 62-150 LV Diastolic Volume Index (BP MOD) 39 ml/m2 34-74 LV Systolic Volume (BP MOD) 25 ml 21-61 LV Systolic Volume Index (BP MOD) 11 ml/m2 11-31 LV EF (BP MOD) 71 % 52-72 LV Diastolic Length (4C) 8.1 cm LV Systolic Length (4C) 6.5 cm LV Stroke Volume (4C MOD) 54 ml Atria Name Value Normal LA Dimensions LA Volume (4C A-L) 75 ml LA Volume (BP A-L) 84 ml RA Dimensions RA Area (4C) 11.4 cm2 <=18.0 Report Signatures
--- OUTSIDE RECORDS SUMMARY | 2024-11-29 12:41 | XMS_ITS | Continuity of Care Document ---
Author Organization [facility] Eye [facility] Address [address] [place] [address] Phone Care Team Providers Care Event Operations Manager Name Role Phone Head OD, Karan Unavailable Unavailable Procedures Procedure Date Eye Exam & Treatment Eye Exam & Treatment Refraction Eye Exam Established Pt Eye Exam & Treatment Refraction Eye Exam, New Patient Advance Directives Directive Yes / No Effective Date File Name No Information Encounters Encounter Description Practice Location Reason(s) For Visit Diagnoses Date Provider Providers Copied on Encounter [facility], [address] [place] [address] [address], [place], [place], [address], [place] tel:[phone] SEC [facility] No Information 7-201 0 Head OD Karan. [address] , [address], [place], [place], [facility], [place]. tel:[phone] [facility], [address], [place], [place], [address], [place] tel:[phone] SEC [facility] No Information 0-200 9 Head OD Karan. [address] , [address], [place], [address], [place]. tel:[phone] [facility], [address], [place], [place], [address], [place] tel:[phone] SEC [facility] No Information Apr-1 7-200 8 Head OD Karan. [address] , [address], [place], [place], [facility], . tel:[phone] [facility] Eye [facility], [address], [place], [place], [address], tel:[phone] SEC [facility] No Information Mar-0 6-200 8 Head OD Karan. [address] [facility] [address] , [address], [place], [place], [facility], [place]. tel:[phone] [facility] Eye [facility], [address], [place], [place], [address], tel:[phone] SEC [facility] No Information Feb-2 6-200 8 Perez Lara. [address] [facility] , [address], [place], [place], [facility], [place]. tel:[phone] Family History Family Member Type Diagnosis Age [...]
--- OUTSIDE RECORDS SUMMARY | 2024-11-29 12:41 | XMS_ITS | Clinical Summary ---
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
--- OUTSIDE RECORDS SUMMARY | 2024-11-29 12:41 | XMS_ITS | Clinical Summary ---
Author Organization [facility] Address [address] Lui: Erika Pretayla [place] [address] Care Team Providers Care Veneer Clipper Name Role Phone Unavailable Primary Care Provider [...] ears 60 Gram 2 04/24/2022 12:54 PM LICENSED APPRAISER 2 Active buPROPion HCL (WELLBUTRIN XL) 150 [...] EVENING. 90 Tablet 3 07/10/2023 11:47 AM LICENSED APPRAISER 3 Active fluticasone propionate (FLONASE) 50 mcg/spray Crowell, Suspension nasal inhaler Administer 1 Crowell in each nostril 2 times daily. 16 Gram 11/27/2022 1:14 PM CDT 3 Active ARIPiprazole (ABILIFY) 5 mg tablet TAKE ONE TABLET BY MOUTH AT BEDTIME 90 Tablet 1 07/10/2023 11:47 AM LICENSED APPRAISER 3 Active naltrexone (DEPADE) 50 mg tablet [...] 3 09/24/2024 2:53 PM CDT 4 Active loratadine (CLARITIN) 10 mg tablet Take 1 Tablet (10 mg) by mouth daily every evening. 90 Tablet 3 09/24/2024 2:53 PM CDT 4 Active buPROPion HCL (WELLBUTRIN XL) 150 mg Extended Release 24 hour tablet Take 1 Tablet (150 mg) by mouth daily in the morning. 90 Tablet 1 10/12/2024 12:45 PM CDT 4 Active amoxicillin-cl avulanate (AUGMENTIN) 875-125 mg tablet Take 1 Tablet by mouth 2 times daily. 20 Tablet 06/15/2024 2:10 PM LICENSED APPRAISER 5 Active rosuvastatin (CRESTOR) 5 mg tablet Take 1 Tablet (5 mg) by mouth daily. 30 Tablet 6 10/20/2024 12:16 PM CDT 5 Active ARIPiprazole (ABILIFY) 5 mg tablet [...] mg) by mouth daily. 90 Tablet 1 11/23/2024 9:04 AM CDT 5 Active ergocalciferol (VITAMIN D2) 50,000 unit capsule Take 1 Capsule (50,000 Units) by mouth every 7 days. 12 Capsule 2 11/05/2024 6:25 PM CDT 5 Active ergocalciferol (VITAMIN D2) 50,000 unit capsule Take 1 Capsule (50,000 Units) by mouth every 7 days. 12 Capsule 2 07/19/2024 3:20 PM LICENSED APPRAISER 4 11/05/19 25 Discontinu ed(Reorder ) doxycycline hyclate (VIBRAMYCIN) 100 mg capsule Take 1 Capsule (100 mg) by mouth 2 times daily for 5 days. 10 Capsule 11/02/2024 12:49 PM CDT 5 11/08/19 25 Social History Tobacco Use Types Packs/Day Years [...] 1-dose 75+ series) 08/03/2019 INFLUENZA VACCINE (#1) 2024 Insurance RX [employer] (INTERNAL) [facility] [employer] RX [employer] Medicare Part D
--- OUTSIDE RECORDS SUMMARY | 2024-11-29 12:41 | XMS_ITS | Clinical Summary ---
Author Organization [facility] Address [address] [place] [address] Care Team Providers Care Party Coordinator Name Role Phone Unavailable Primary Care Provider [...]
--- OUTSIDE RECORDS SUMMARY | 2024-11-29 12:41 | XMS_ITS | Encounter Summary ---
Author Organization [facility] Address [address] [place] [address] Care Team Providers Care Market Research Interviewer Name Role Phone Rama Dacosta MD Primary Care Provider [phone] Encounter Details Date Type Department Care Team (Late st Contact Info) Description 07/08/2018 Lab Requisition [facility] [address] [place] [address] Chirs Paniagua MD [address] [place] [address] Social History Tobacco Use Types Packs/Day Years Used Date Smoking Tobacco: Never Assessed Sex and Gender Information Value Date Recorded Sex Assigned at Not on file 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 Gender Identity Not on file Sexual Orientation Not on file documented as of this encounter Plan of Treatment Not on file documented as of this encounter Procedures Procedure Name Priority Date/Time Associated Diagnosis Comments DERMATOPATHOLOGY Routine 07/07/2018 12:0 0 AM HOT METAL MIXER OPERATOR documented in this encounter Results * DERMATOPATHOLOGY (07/07/2018 12:00 AM HOT METAL MIXER OPERATOR) Case Report Dermatopathology Report Case: [id number] Authorizing Provider: Chris Paniagua MD Collected: 07/07/2018 12:00 AM Pathologist: Parth Castellano MD Received: 07/08/2018 12:12 PM Specimen: Skin, left cheek 9 4:22 PM [facility] DERMAT[facility] Final Diagnosis Specimen A. SKIN, left cheek: BENIGN VERRUCOUS KERATOSIS, INFLAMED (L82.1) 9 4:22 PM [facility] DERMATOPATHOLOGY [facility]ORAT[facility] at [address] HOT METAL MIXER OPERATOR Clinical History R/O BCC, ISK,SCC 4:22 PM [facility]ERMAT[facility] Gross Description Specimen A: Received is one formalin filled container labeled with the patient's name and designated left cheek. The specimen consists of a shave biopsy measuring 8x7x4 mm, bisected. Jar 0. 9 4:22 PM [facility] DERMATOP[facility] Microscopic Description Specimen A. SKIN, left cheek: Sections show hyperkeratosis, papillomatosis, hypergranulosis, and acanthosis. Inflammatory cells are present within the dermis. These histological findings can be seen in a verruca vulgaris or a seborrheic keratosis. 4:22 PM [facility] DERMAT[facility] Disclaimer An external and internal positive and negative controls are appropriate for the histochemical, immunohistochemical and immunofluorescence stain(s) in this case (if any), except where stated explicitly. The performance characteristics of the stain(s) cited in this report were developed and its performance characteristic determined by the Dermatopathology Laboratory at [facility], directed by Dr. Shraddha Castellano. These tests need not be, and therefore are not, approved by the [place] Food and Drug Administration. The tests are used for clinical purposes. Billing Codes Specimen Charges Stain Charges 37998 1 9 4:22 PM [facility] DERMAT[facility] Embedded Images 4:22 PM [facility]MAT[facility] Pathology/Cytolog y TISSUE SPECIMEN FROM SKIN / Unknown 07/07/2018 07/08/2018 12:12 PM HOT METAL MIXER OPERATOR Chris Paniagua MD LAB - PATHOLOGY/CYTOLOGY ORD ERABLES Final Result DERMATOPATHOLOGY LABORATORY [facility] - Department of Dermatology [address] [place] [address], [address]th [place] [address], [place] [phone] documented in this encounter Visit Diagnoses Not on filedocumented in this encounter Care Teams Market Research Interviewer Relationship Specialty Start Date End Date Rama Dacosta MD [address] [place] [address] PCP - General Family Medicine 04/22/16 documented as of this encounter
--- OUTSIDE RECORDS SUMMARY | 2024-11-29 12:41 | XMS_ITS | Patient Health Record ---
Author Organization [facility] [employer] [facility] Address [address] [place] [address] Care Team Providers Care General Operator Name Role Phone Rama Dacosta MD Primary Care Provider Monae Dacosta Unavailable [phone] Allergies No Known Allergies Reason For Referral No Information Medications Medication SIG (Take, Route, Frequency, Duration) Notes Start Date End Date Status buPROPion HCl ER (XL) 150 MG 1 tablet in the morning Oral Once a day; Duration: 90 days Active ARIPiprazole 5 MG 1 tablet at bedtime Oral Once a day; Duration: 90 days Active Fluticasone Propionate Diskus 50 MCG/ACT Inhalation *Reorder from [employer] for eRx and Interaction Alerts* 09/23/2023 Active Desonide 0.05 % External 09/23/2023 Act suma Loratadine 10 MG 1 tablet Orally Once a day Active Omeprazole 40 MG Oral 09/23/2023 Ac tive Naltrexone HCl 50 MG 1 tablet Oral Once a day; Duration: 90 days 09/23/2023 03/20/2025 Active FLUZONE HIGH-DOSE QUAD 2019-21 (PF) 240 MCG/0.7 ML IM SYRINGE *Reorder from [employer] for eRx and Interaction Alerts* 09/23/2023 Active Ketoconazole 2% External 09/23/2023 Act suma Mometasone Furoate 0.1 % External 09/23/2023 Active BUPROPION HYDROCHLORIDE ER (XL) 150 MG TB24 *Reorder from [employer] for eRx and Interaction Alerts* 09/23/2023 Active Rosuvastatin Calcium 5 MG Oral 09/23/2023 Active Immunizations Vaccine Route Administration Date Status Comme nts Influenza virus vaccine, quadrivalent (IIV4), split virus, 0.25 mL dosage Unknown 02/16/2018 Administered Influenza virus vaccine, quadrivalent (IIV4), split virus, 0.25 mL dosage Unknown 02/16/2019 Administered Influenza virus vaccine, quadrivalent (IIV4), split virus, 0.25 mL dosage Unknown 02/16/2021 Administered Influenza virus vaccine, quadrivalent (IIV4), split virus, 0.25 mL dosage Unknown 02/28/2022 Administered Influenza, high dose seasonal Unknown 04/22/2016 Admini stered Influenza, high dose seasonal Unknown 04/02/2018 Admini stered Influenza, unspecified formulation Unknown 03/20/2023 A dministered Pfizer Biontech Covid-19 Vac cine 2nd dose Unknown 06/24/2020 Administered Pfizer [employer] Covid-19 Vac cine 2nd dose Unknown 07/17/2020 Administered Pfizer [employer] Covid-19 Vac cine 2nd dose Unknown 03/23/2021 Administered Pneumococcal conjugate PCV 13 Unknown 04/18/2016 Admini stered Pneumococcal conjugate PCV 7 Unknown 03/05/2019 Adminis tered Pneumococcal polysaccharide PPV23 Unknown 02/17/2017 Ad ministered Tdap Unknown 04/04/2016 Administered Social History Tobacco Use: Social History Observation Description Date Details (start date - stop date) Former Smoker NA - NA Sex Assigned At : Social History Observation Description Sex Assigned At Male Tobacco Control (Standard) Question Answer Notes Tobacco use: Former smoker Problems Problem Type SNOMED Code ICD Code Onset Dates Problem Status W/U Status Risk Notes Problem Chronic alcoholism in remission (345156814) Alcohol dependence, in remission (F10.21) Active confirmed Problem Bipolar affective disorder, currently depressed, mild (226223232) Bipolar disorder, current episode depressed, mild (F31.31) 09/23/19 24 Active confirmed Problem Generalized anxiety disorder (73284997) Generalized anxiety disorder (F41.1) 09/23/19 24 Active confirmed Problem Insomnia disorder related to another mental disorder (35868917) Insomnia due to other mental disorder (F51.05) 09/23/19 24 Active confirmed Problem Screening for cardiovascular system disease (598815109) Encounter for screening for cardiovascular disorders (Z13.6) Active confirmed Problem Long-term current use of drug therapy (839848850) 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) 09/23/19 24 Active confirmed Problem Elevated blood-pressure reading without diagnosis of hypertension (130154088) Elevated blood pressure reading (R03.0) Active confirmed Vital Signs Heart Rate 89 /min 09/21/2024 Respiratory Rate 18 /min 09/21/2024 Height-cm 177.80 cm 09/21/2024 Blood pressure diastolic 84 mm Hg 09/21/2024 Weight-kg 96.07 kg 09/21/2024 Height 70.00 in 09/21/2024 Blood pressure systolic 117 mm Hg 09/21/2024 Weight 211.8 lbs 09/21/2024 BMI 30.39 kg/m2 09/21/2024 Encounters Encounter Location Date Provider Diagnosis [facility] [address] [address] 03/23/2024 Monae Quinteros Bipolar disorder, current episode depressed, mild F31.31 ; Generalized anxiety disorder F41.1 ; Alcohol dependence, in remission F10.21 ; Insomnia due to other mental disorder F51.05 ; 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 Z79.899 and Elevated blood pressure reading R03.0 [facility] [address] [facility] [address] [place] [address] 09/21/2024 Monae Quinteros Negative depression screening Z13.31 ; Bipolar disorder, current episode depressed, mild F31.31 ; Encounter for screening for cardiovascular disorders Z13.6 ; Generalized anxiety disorder F41.1 ; Alcohol dependence, in remission F10.21 ; Insomnia due to other mental disorder F51.05 ; Other fpc (current) drug therapy Z79.899 and Elevated blood pressure reading R03.0 Assessments Encounter Date Diagnosis (ICD Code) Assessment Notes Treatment Notes Treatment Clinical Notes Section Notes 09/21/2024 Bipolar disorder, current episode depressed, mild (ICD-10 - F31.31) presently taking Naltrexone 50 mg daily, Wellbutrin XL 150mg in am, Abilify 5 mg daily 1. Bipolar- Wellbutrin XL 150mg in am, Abilify 5 mg daily 2. Anxiety Wellbutrin 3. Insomnia- Melatonin 10 mg OTC naps in day and sleep in chair in evening Sleep study completed and schedule to see specialist for CPAP 10/10 4. Alcohol- remission- Naltrexone 50 mg daily [...] effects including loss of libido, increased suicidal thoughts/behavior s in children and young adults, and serotonin [...] neurotoxicity and interactions with prescribed medications. 03/23/2024 Bipolar disorder, current episode depressed, mild [...] effects including loss of libido, increased suicidal thoughts/behavior s in children and young adults, and serotonin [...] effects including loss of libido, increased suicidal thoughts/behavior s in children and young adults, and serotonin [...] potential neurotoxicity and interactions with prescribed medications. 09/21/2024 Negative depression screening (ICD-10 - Z13.31) presently taking Naltrexone 50 mg daily, Wellbutrin XL 150mg in am, Abilify 5 mg daily 1. Bipolar- Wellbutrin XL 150mg in am, Abilify 5 mg daily 2. Anxiety Wellbutrin 3. Insomnia- Melatonin 10 mg OTC naps in day and sleep in chair in evening Sleep study completed and schedule to see specialist for CPAP 10/10 4. Alcohol- remission- Naltrexone 50 mg daily [...] effects including loss of libido, increased suicidal thoughts/behavior s in children and young adults, and serotonin [...] effects including loss of libido, increased suicidal thoughts/behavior s in children and young adults, and serotonin [...] potential neurotoxicity and interactions with prescribed medications. 09/21/2024 Encounter for screening for cardiovascular disorders (ICD-10 - Z13.6) presently taking Naltrexone 50 mg daily, Wellbutrin XL 150mg in am, Abilify 5 mg daily 1. Bipolar- Wellbutrin XL 150mg in am, Abilify 5 mg daily 2. Anxiety Wellbutrin 3. Insomnia- Melatonin 10 mg OTC naps in day and sleep in chair in evening Sleep study completed and schedule to see specialist for CPAP 10/10 4. Alcohol- remission- Naltrexone 50 mg daily [...] effects including loss of libido, increased suicidal thoughts/behavior s in children and young adults, and serotonin [...] potential neurotoxicity and interactions with prescribed medications. 09/21/2024 Generalized anxiety disorder (ICD-10 - F41.1) presently taking Naltrexone 50 mg daily, Wellbutrin XL 150mg in am, Abilify 5 mg daily 1. Bipolar- Wellbutrin XL 150mg in am, Abilify 5 mg daily 2. Anxiety Wellbutrin 3. Insomnia- Melatonin 10 mg OTC naps in day and sleep in chair in evening Sleep study completed and schedule to see specialist for CPAP 10/10 4. Alcohol- remission- Naltrexone 50 mg daily [...] effects including loss of libido, increased suicidal thoughts/behavior s in children and young adults, and serotonin [...] effects including loss of libido, increased suicidal thoughts/behavior s in children and young adults, and serotonin [...] and interactions with prescribed medications. 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 09/21/2024 Alcohol dependence, in remission (ICD-10 - F10.21) presently taking Naltrexone 50 mg daily, Wellbutrin XL 150mg in am, Abilify 5 mg daily 1. Bipolar- Wellbutrin XL 150mg in am, Abilify 5 mg daily 2. Anxiety Wellbutrin 3. Insomnia- Melatonin 10 mg OTC naps in day and sleep in chair in evening Sleep study completed and schedule to see specialist for CPAP 10/10 4. Alcohol- remission- Naltrexone 50 mg daily [...] effects including loss of libido, increased suicidal thoughts/behavior s in children and young adults, and serotonin [...] effects including loss of libido, increased suicidal thoughts/behavior s in children and young adults, and serotonin [...] potential neurotoxicity and interactions with prescribed medications. 09/21/2024 Insomnia due to other mental disorder (ICD-10 - F51.05) presently taking Naltrexone 50 mg daily, Wellbutrin XL 150mg in am, Abilify 5 mg daily 1. Bipolar- Wellbutrin XL 150mg in am, Abilify 5 mg daily 2. Anxiety Wellbutrin 3. Insomnia- Melatonin 10 mg OTC naps in day and sleep in chair in evening Sleep study completed and schedule to see specialist for CPAP 10/10 4. Alcohol- remission- Naltrexone 50 mg daily [...] effects including loss of libido, increased suicidal thoughts/behavior s in children and young adults, and serotonin [...] potential neurotoxicity and interactions with prescribed medications. 09/21/2024 Other fpc (current) drug therapy (ICD-10 - Z79.899) presently taking Naltrexone 50 mg daily, Wellbutrin XL 150mg in am, Abilify 5 mg daily 1. Bipolar- Wellbutrin XL 150mg in am, Abilify 5 mg daily 2. Anxiety Wellbutrin 3. Insomnia- Melatonin 10 mg OTC naps in day and sleep in chair in evening Sleep study completed and schedule to see specialist for CPAP 10/10 4. Alcohol- remission- Naltrexone 50 mg daily [...] effects including loss of libido, increased suicidal thoughts/behavior s in children and young adults, and serotonin [...] potential neurotoxicity and interactions with prescribed medications. 09/21/2024 Elevated blood pressure reading (ICD-10 - R03.0) presently taking Naltrexone 50 mg daily, Wellbutrin XL 150mg in am, Abilify 5 mg daily 1. Bipolar- Wellbutrin XL 150mg in am, Abilify 5 mg daily 2. Anxiety Wellbutrin 3. Insomnia- Melatonin 10 mg OTC naps in day and sleep in chair in evening Sleep study completed and schedule to see specialist for CPAP 10/10 4. Alcohol- remission- Naltrexone 50 mg daily [...] effects including loss of libido, increased suicidal thoughts/behavior s in children and young adults, and serotonin [...] potential neurotoxicity and interactions with prescribed medications. 09/21/2024 Other referral to the local chapter or national office of the Alzheimer's Association ([phone] 0; http://www.alz .org), the Alzheimer's Disease Education and Referral Center (ADEAR) ([phone] 0; http://www.airam .nih.gov/Alzhe bria/), presently taking Naltrexone 50 mg daily, Wellbutrin XL 150mg in am, Abilify 5 mg daily 1. Bipolar- Wellbutrin XL 150mg in am, Abilify 5 mg daily 2. Anxiety Wellbutrin 3. Insomnia- Melatonin 10 mg OTC naps in day and sleep in chair in evening Sleep study completed and schedule to see specialist for CPAP 10/10 4. Alcohol- remission- Naltrexone 50 mg daily [...] effects including loss of libido, increased suicidal thoughts/behavior s in children and young adults, and serotonin [...] interactions with prescribed medications. Plan Of Treatment Next Appt Details Provider Name:Monae Neli , 03/22/2025 11:45:00 AM, [address] [facility] [facility] [address], [facility] [address], [place], [address], Insurance Providers Payer Name Payer Address Payer Phone Subscriber Number Group Number Insured Name Patient Relationship to Insured Coverage Start Date Coverage End Date [employer] [address] [place] [address] [phone] [id number] SRINIVASA KEEN Self - patient is the insured Medical (General) History Medical History History ICD Code Problems: Acute COVID-19 Alcohol dependence Bipolar affective disorder, currently de pressed, mild Generalized anxiety disorder Insomnia disorder related to another men shana disorder Long-term drug therapy Vitamin D deficiency , Surgical History Surgery Date(Month/Year) appendix 1999 gall bladder
--- OUTSIDE RECORDS SUMMARY | 2024-11-29 12:41 | XMS_ITS | Clinical Summary ---
Author Organization [facility] Address [address] [place] [address] Care Team Providers Care Document Preparation Specialist Name Role Phone Rama Dacosta MD Primary Care Provider [phone] Source Comments [facility],non-owned Affiliates and Associated Physician Practices is amultiple site organization consisting of ambulatory clinics and hospital sitesin [place], [place], [place] and [place]. This disclosure is being madepursuant to the Care Everywhere program and may not contain all information available regarding this patient. Last updated 18.[facility] Immunizations Immunization Administration Dates Next Due INFLUENZA VACCINE, HIGH-DOSE , QUADR. 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 Gender Identity Not on file Sexual Orientation [...] 2023-2 5 season) 2024 DEPRESSION SCREENING 05/19/2024 MEDICARE AWV CALENDAR YEAR 2024 INFLUENZA VACCINE (#1) 2025 04/22/2016 HEPATITIS B VACCINE Aged Out No longe [...] patient's age to complete this topic Insurance [employer] MEDICARE ADV SELF PAY NO INSURANCE Member Subscriber Plan / Payer (Ef fective for All Dates) Name:Srinivasa Keen Member ID:Not on file Relation to Subscriber:Not on file Name:SRINIVASA KEEN Subscriber ID:Not on file (Home) Address: [address] [place] [address] Payer ID:Not on file Group ID:Not on file Type:Self Pay Address: [place], [place] [facility] MANAGED MEDICARE ADV Care Teams Document Preparation Specialist Relationship Specialty Start Date End Date Rama Dacosta MD [address] [place] [address] PCP - General Family Medicine 04/22/16
--- OUTSIDE RECORDS SUMMARY | 2024-11-29 12:41 | XMS_ITS | Referral Summary ---
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
== END 2024-11-29 12:38 | disposition home or self-care (01) ==
PROVIDERS: PCP Family Medicine; Visit Provider Nurse Practitioner Family
DX: I11.9 Hypertensive heart disease without heart failure (principal); I35.8 Other nonrheumatic aortic valve disorders
CPT/HCPCS: 93306

== ENCOUNTER 2024-12-02 10:38 | Outpatient (CLI) | payer MEDICARE, SELFPAY ==
[2024-12-02 10:54] LABS: Hematocrit 45.3 % (42.0-52.0); Hemoglobin 15.0 g/dL (14.0-18.0); Immature Granulocyte Percent A 0.2 % (0-0.5); Immature Platelet Fraction Pct 3.0 % (0.9-11.2); Lymphocytes Absolute Auto 1.07 K/mm3 (0.9-3.2); Mean Corpuscular HGB Conc 33.1 g/dl (32-36); Mean Corpuscular Hemoglobin 32.1 pg (26-34); Mean Corpuscular Volume 96.8 fl (80-100); Nucleated Red Blood Cells Absolute Auto 0.000 K/mm3 (0.0-0.012); Nucleated Red Blood Cells Perc 0.0 % (0.0-0.2); Platelet Count Result 139 k/mm3 (150-375); Red Blood Count 4.68 M/mm3 (4.6-6.20); White Blood Count 4.4 K/mm3 (4.5-10.0)
--- NOTE | 2024-12-02 10:56 | ECG_ITS ---
Test Date: 2024-12-02 11:06:09 Measurements Intervals [place] Rate: 66 P: 66 [place]: 192 QRS: 74 QRSD: 92 T: 58 QT: 366 QTc: 385 Interpretive Statements SINUS RHYTHM No previous ECG available for comparison Electronically Signed On 12-02-2024 14:47:10 CDT by Som Galvin M.D.
--- OUTSIDE RECORDS SUMMARY | 2024-12-02 10:57 | XMS_ITS | Clinical Summary ---
Author Organization [facility] Address [address] [place] [address] Care Team Providers Care Shoe Stock Associate Name Role Phone Rama Dacosta MD Primary Care Provider [phone] Source Comments [facility],non-owned Affiliates and Associated Physician Practices is amultiple site organization consisting of ambulatory clinics and hospital sitesin [place], [place], [place] and [place]. This disclosure is being madepursuant to the Care Everywhere program and may not contain all information available regarding this patient. Last updated 18.[facility] Immunizations Immunization Administration Dates Next Due INFLUENZA VACCINE, HIGH-DOSE , QUADR. 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
--- OUTSIDE RECORDS SUMMARY | 2024-12-02 10:57 | XMS_ITS | Referral Summary ---
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
--- OUTSIDE RECORDS SUMMARY | 2024-12-02 10:57 | XMS_ITS | Clinical Summary ---
Author Organization [facility] Address [address] [place] [address] Care Team Providers Care Signs Sales Representative Name Role Phone Unavailable Primary Care Provider [...]
--- OUTSIDE RECORDS SUMMARY | 2024-12-02 10:57 | XMS_ITS | Clinical Summary ---
Author Organization [facility] Address [address] [facility] [address] Lui: Erika Pretayla [place] [address] Care Team Providers Care Metal Moulder Name Role Phone Unavailable Primary Care Provider [...] ears 60 Gram 2 04/24/2022 12:54 PM GLUTEN SETTLING TENDER 2 Active buPROPion HCL (WELLBUTRIN XL) 150 [...] EVENING. 90 Tablet 3 07/10/2023 11:47 AM GLUTEN SETTLING TENDER 3 Active fluticasone propionate (FLONASE) 50 mcg/spray [place], Suspension nasal inhaler Administer 1 [place] in each nostril 2 times daily. 16 Gram 11/27/2022 1:14 PM CDT 3 Active ARIPiprazole (ABILIFY) 5 mg tablet TAKE ONE TABLET BY MOUTH AT BEDTIME 90 Tablet 1 07/10/2023 11:47 AM GLUTEN SETTLING TENDER 3 Active naltrexone (DEPADE) 50 mg tablet [...] times daily. 20 Tablet 06/15/2024 2:10 PM GLUTEN SETTLING TENDER 5 Active rosuvastatin (CRESTOR) 5 mg tablet [...] days. 12 Capsule 2 07/19/2024 3:20 PM GLUTEN SETTLING TENDER 4 11/05/19 25 Discontinu ed(Reorder ) doxycycline [...]
--- OUTSIDE RECORDS SUMMARY | 2024-12-02 10:57 | XMS_ITS | Encounter Summary ---
Author Organization [facility] Address [address] [facility] [place] [address] Care Team Providers Care Hearing Aid Consultant Name Role Phone Rama Dacosta MD Primary Care Provider [phone] Encounter Details Date Type Department Care Team (Late st Contact Info) Description 07/08/2018 Lab Requisition [facility] Care DermPath Lab [address] 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 Gender Identity Not on file Sexual Orientation Not on file documented as of this encounter Plan of Treatment Not on file documented as of this encounter Procedures Procedure Name Priority Date/Time Associated Diagnosis Comments DERMATOPATHOLOGY Routine 07/07/2018 12:0 0 AM CELLAR PUMPER documented in this encounter Results * DERMATOPATHOLOGY (07/07/2018 12:00 AM CELLAR PUMPER) Case Report Dermatopathology Report Case: [id number] Authorizing Provider: Chris Paniagua MD Collected: 07/07/2018 12:00 AM Pathologist: Patrh Castellano MD Received: 07/08/2018 12:12 PM Specimen: Skin, left cheek 9 4:22 PM [facility] DERMATOPATHOLOGY LABORATORY Final Diagnosis Specimen A. SKIN, left cheek: BENIGN VERRUCOUS KERATOSIS, INFLAMED (L82.1) 9 4:22 PM [facility] DERMATOPATHOLOGY LABORATORY at [address] CELLAR PUMPER Clinical History R/O BCC, ISK,SCC 4:22 PM [facility] DERMATOPATHOLOGY LABORATORY Gross Description Specimen A: Received is one formalin filled container labeled with the patient's name and designated left cheek. The specimen consists of a shave biopsy measuring 8x7x4 mm, bisected. Jar 0. 9 4:22 PM [facility] DERMATOPATHOLOGY LABORATORY Microscopic Description Specimen A. SKIN, left cheek: Sections show hyperkeratosis, papillomatosis, hypergranulosis, and acanthosis. Inflammatory cells are present within the dermis. These histological findings can be seen in a verruca vulgaris or a seborrheic keratosis. 4:22 PM [facility] DERMATOPATHOLOGY LABORATORY Disclaimer An external and internal positive and negative controls are appropriate for the histochemical, immunohistochemical and immunofluorescence stain(s) in this case (if any), except where stated explicitly. The performance characteristics of the stain(s) cited in this report were developed and its performance characteristic determined by the Dermatopathology Laboratory at [facility], directed by Dr. Shraddha Castellano. These tests need not be, and therefore are not, approved by the [place] Food and Drug Administration. The tests are used for clinical purposes. Billing Codes Specimen Charges Stain Charges 79306 1 9 4:22 PM [facility] DERMATOPATHOLOGY LABORATORY Embedded Images 4:22 PM [facility] DERMATOPATHOLOGY [facility]OR[facility]ORY Pathology/Cytolog y TISSUE SPECIMEN FROM SKIN / Unknown 07/07/2018 07/08/2018 12:12 PM CELLAR PUMPER Chris Paniagua MD LAB - PATHOLOGY/CYTOLOGY ORD ERABLES Final Result DERMATOPATHOLOGY LABORATORY [facility] - Department of Dermatology [address] [place] [address], 5th [place] [address], [facility] [phone] documented in this encounter Visit Diagnoses Not on filedocumented in this encounter Care Teams Hearing Aid Consultant Relationship Specialty Start Date End Date Rama Dacosta MD [address] [place] [address] PCP - General Family Medicine 04/22/16 documented as of this encounter
--- OUTSIDE RECORDS SUMMARY | 2024-12-02 10:57 | XMS_ITS | Continuity of Care Document ---
Author Organization [facility] Address [address] [place] [address] Phone Care Team Providers Care Binder Roller Name Role Phone Head OD, Karan Unavailable Unavailable Procedures Procedure Date Eye Exam & Treatment Eye Exam & Treatment Refraction Eye Exam Established Pt Eye Exam & Treatment Refraction Eye Exam, New Patient Advance Directives Directive Yes / No Effective Date File Name No Information Encounters Encounter Description Practice Location Reason(s) For Visit Diagnoses Date Provider Providers Copied on Encounter [facility], [address] [place] [address] [address], [place], [place], [id number], [place] tel:[phone] [facility] No Information 7-201 0 Head OD Karan. [address] , [address], [place], [place], [facility], [place]. tel:[phone] [facility], [address], [place], [place], [id number], [place] tel:[phone] [facility] No Information 0-200 9 Head OD Karan. [address] , [address], [place], [address], [place]. tel:[phone] [facility], [address], [place], [place], [address], [place] tel:[phone] [facility] No Information Apr-1 7-200 8 Head OD Karan. [address] , [address], [place], [place], [facility], . tel:[phone] [facility], [address], [place], [place], [id number], tel:[phone] [facility] No Information Mar-0 6-200 8 Head OD Karan. [address] [facility] , [address], [place], [place], [facility], [place]. tel:[phone] [facility], [address], [place], [place], [address], tel:[phone] [facility] No Information Feb-2 6-200 8 [address] Lara. [address] [facility] , [address], [place], [place], [facility], [place]. tel:[phone] Family History Family Member Type Diagnosis Age [...]
--- OUTSIDE RECORDS SUMMARY | 2024-12-02 10:57 | XMS_ITS | Clinical Summary ---
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 Address: [address] [address] Care Teams Harmonica Maker Relationship Specialty Start Date End Date Rama Dacosta MD PCP - General Family Medicine 08/10/20
[2024-12-02 11:14] LABS: Anion Gap 7 mmol/L (4-12); Blood Urea Nitrogen 11 mg/dL (9-20); Calcium 9.5 mg/dL (8.4-10.2); Carbon Dioxide 29 mmol/L (22-30); Chloride 103 mmol/L (98-107); Estimated Glomerular Filt Rate > 60; Glucose 67 mg/dL (65-110); Potassium 4.4 mmol/L (3.4-5.0); Sodium 139 mmol/L (137-145)
[2024-12-02 11:30] LABS: Add Urine Microscopic? NO; Appearance Urine Clear (Clear); Glucose Urine UA Negative (Negative); Leukocyte Esterase Ur Negative LEU/UL (Negative); Nitrate Urine Negative (Negative); Specific Grav Ur 1.014 (1.001-1.035)
== END 2024-12-02 10:39 | disposition home or self-care (01) ==
LOC: ANHLAB 10:40
PROVIDERS: PCP Family Medicine; Visit Provider Nurse Practitioner Family
DX: I73.9 Peripheral vascular disease, unspecified (principal); D69.6 Thrombocytopenia, unspecified; R53.83 Other fatigue; I10 Essential (primary) hypertension
CPT/HCPCS: 36415; 80048; 81003; 85025; 85055; 93005

== ENCOUNTER 2024-12-23 11:54 | Outpatient (CLI) | payer MEDICARE, SELFPAY ==
--- OUTSIDE RECORDS SUMMARY | 2024-12-23 12:00 | XMS_ITS | Encounter Summary ---
Author Organization [facility] Address [address] [place] [address] Care Team Providers Care Cut Off Saw Operator Metal Name Role Phone Rama Dacosta MD Primary Care Provider [phone] Encounter Details Date Type Department Care Team (Late st Contact Info) Description 07/08/2018 Lab Requisition [facility] Care DermPath Lab [address] [facility], [place] [address] Chris Paniagua MD [address] [place] [address] Social History Tobacco Use Types Packs/Day Years Used Date Smoking Tobacco: Never Assessed Sex and Gender Information Value Date Recorded Sex Assigned at Not on file Legal Sex Male 10:53 AM FISH 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 Gender Identity Not on file Sexual Orientation Not on file documented as of this encounter Plan of Treatment Not on file documented as of this encounter Procedures Procedure Name Priority Date/Time Associated Diagnosis Comments DERMATOPATHOLOGY Routine 07/07/2018 12:0 0 AM FISH RECEIVER documented in this encounter Results * DERMATOPATHOLOGY (07/07/2018 12:00 AM FISH RECEIVER) Case Report Dermatopathology Report Case: [id number] Authorizing Provider: Chris Paniagua MD Collected: 07/07/2018 12:00 AM Pathologist: Parth Castellano MD Received: 07/08/2018 12:12 PM Specimen: Skin, left cheek 9 4:22 PM [facility] DERMATOPATHOLOGY LABORATORY Final Diagnosis Specimen A. SKIN, left cheek: BENIGN VERRUCOUS KERATOSIS, INFLAMED (L82.1) 9 4:22 PM [facility] DERMATOPATHOLOGY LABORATORY at [address] FISH RECEIVER Clinical History R/O BCC, ISK,SCC 4:22 PM [facility] DERMATOPATHOLOGY LABORATORY Gross Description Specimen A: Received is one formalin filled container labeled with the patient's name and designated left cheek. The specimen consists of a shave biopsy measuring 8x7x4 mm, bisected. Jar 0. 9 4:22 PM [facility] DERMATOPATHOLOGY LABORATORY Microscopic Description Specimen A. SKIN, left cheek: Sections show hyperkeratosis, papillomatosis, hypergranulosis, and acanthosis. Inflammatory cells are present within the dermis. These histological findings can be seen in a verruca vulgaris or a seborrheic keratosis. 4:22 PM [facility] DERMATOPATHOLOGY LABORATORY Disclaimer An external and internal positive and negative controls are appropriate for the histochemical, immunohistochemical and immunofluorescence stain(s) in this case (if any), except where stated explicitly. The performance characteristics of the stain(s) cited in this report were developed and its performance characteristic determined by the Dermatopathology Laboratory at [facility], directed by Dr. Shraddha Castellano. These tests need not be, and therefore are not, approved by the [place] Food and Drug Administration. The tests are used for clinical purposes. Billing Codes Specimen Charges Stain Charges 36542 1 9 4:22 PM [facility] DERMATOPATHOLOGY LABORATORY Embedded Images 4:22 PM [facility] DERMATOPATHOLOGY LABORATORY Pathology/Cytolog y TISSUE SPECIMEN FROM SKIN / Unknown 07/07/2018 07/08/2018 12:12 PM FISH RECEIVER Chris Paniagua MD LAB - PATHOLOGY/CYTOLOGY ORD ERABLES Final Result DERMATOPATHOLOGY LABORATORY [facility] - Department of Dermatology [address] [place] [address], 5th [place] [address], [facility] [phone] documented in this encounter Visit Diagnoses Not on filedocumented in this encounter Care Teams Cut Off Saw Operator Metal Relationship Specialty Start Date End Date Rama Dacosta MD [address] [place] [address] PCP - General Family Medicine 04/22/16 documented as of this encounter
--- OUTSIDE RECORDS SUMMARY | 2024-12-23 12:00 | XMS_ITS | Clinical Summary ---
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
--- OUTSIDE RECORDS SUMMARY | 2024-12-23 12:00 | XMS_ITS | Clinical Summary ---
Author Organization [facility] Address [address] Lui: Erika Pretayla [place] [address] Care Team Providers Care Electronic Parts Salesperson Name Role Phone Unavailable Primary Care Provider [...] ears 60 Gram 2 04/24/2022 12:54 PM FULLER BRUSH MAN 2 Active buPROPion HCL (WELLBUTRIN XL) 150 [...] EVENING. 90 Tablet 3 07/10/2023 11:47 AM FULLER BRUSH MAN 3 Active fluticasone propionate (FLONASE) 50 mcg/spray [place], Suspension nasal inhaler Administer 1 [place] in each nostril 2 times daily. 16 Gram 11/27/2022 1:14 PM CDT 3 Active ARIPiprazole (ABILIFY) 5 mg tablet TAKE ONE TABLET BY MOUTH AT BEDTIME 90 Tablet 1 07/10/2023 11:47 AM FULLER BRUSH MAN 3 Active naltrexone (DEPADE) 50 mg tablet [...] 1 10/12/2024 12:45 PM CDT 4 Active amoxicillin-cla vulanate (AUGMENTIN) 875-125 mg tablet Take 1 Tablet by mouth 2 times daily. 20 Tablet 06/15/2024 2:10 PM FULLER BRUSH MAN 5 Active rosuvastatin (CRESTOR) 5 mg tablet Take 1 Tablet (5 mg) by mouth daily. 30 Tablet 6 10/20/2024 12:16 PM CDT 5 Active ARIPiprazole (ABILIFY) 5 mg tablet Take one tablet (5mg) by mouth at bedtime 90 Tablet 1 12/10/2024 2:21 PM CDT 5 Active buPROPion HCL (WELLBUTRIN XL) 150 [...] 2 11/05/2024 6:25 PM CDT 5 Active tamsulosin (FLOMAX) 0.4 mg capsule Take 1 Capsule (0.4 mg) by mouth daily at bedtime. 30 Capsule 6 12/14/2024 6:16 PM CDT 5 Active fluorouraciL (EFUDEX) 5 % Cream Apply to affected spot on left cheek two times daily for 2 weeks. Apply Vaseline between applications to ease irritation/disco mfort. 40 Gram 3 12/15/2024 2:54 PM CDT 5 Active chlorhexidine gluconate (HIBICLENS) 4 % Liquid CLEANSE OPERATIVE EXTREMITY IN SHOWER EVERY DAY FOR 1 WEEK PRIOR TO SURGICAL PROCEDURE. 236 mL 5 Active Encounters Date Type Department Care Team Description 12/22/2024 External Device Data [facility] ABSTRACTION Provider, Abstract from Last 3 Months Social History Tobacco Use Types Packs/Day Years [...]
--- OUTSIDE RECORDS SUMMARY | 2024-12-23 12:00 | XMS_ITS | Clinical Summary ---
Author Organization [facility] Address [address] [place] [address] Care Team Providers Care Peoplesoft Name Role Phone Unavailable Primary Care Provider [...]
--- OUTSIDE RECORDS SUMMARY | 2024-12-23 12:00 | XMS_ITS | Clinical Summary ---
Author Organization [facility] Address [address] [place] [address] Care Team Providers Care Animal Chiropractor Name Role Phone Rama Dacosta MD Primary Care Provider [phone] Source Comments [facility],non-owned Affiliates and Associated Physician Practices is amultiple site organization consisting of ambulatory clinics and hospital sitesin [place], [place], [place] and [place]. This disclosure is being madepursuant to the Care Everywhere program and may not contain all information available regarding this patient. Last updated 18.[facility] Immunizations Immunization Administration Dates Next Due INFLUENZA VACCINE, HIGH-DOSE , QUADR. 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
--- OUTSIDE RECORDS SUMMARY | 2024-12-23 12:00 | XMS_ITS | Encounter Summary ---
Author Organization [facility] Address [address] [place] [address] Care Team Providers Care Internet Marketing Analyst Name Role Phone Unavailable Primary Care Provider Unavailabl e Encounter Details Date Type Department Care Team (Late st Contact Info) Description 12/22/2024 External Device Data [facility] ABSTRACTION Provider, Abstract NO ADDRESS ON FILE Social History Tobacco Use Types Packs/Day Years Used Date Smoking Tobacco: Never Assessed Sex and Gender Information Value Date Recorded Sex Assigned at Not on file Legal Sex Male 3:27 PM CDT Gender Identity Not on file Sexual Orientation Not on file documented as of this encounter Plan of Treatment Not on file documented as of this encounter Visit Diagnoses Not on filedocumented in this encounter
[2024-12-23 13:40] LABS: INR 1.1; Prothrombin Time 14.2 Seconds (11.1-14.7)
[2024-12-23 13:41] LABS: Partial Thromboplastin Time 26.3 Seconds (22.3-36.8)
[2024-12-23 13:49] LABS: Albumin Level 4.3 g/dL (3.5-5.1)
[2024-12-23 14:38] LABS: MRSA (PCR) NOT DETECTED (NOT DETECTE)
[2024-12-23 17:48] LABS: Hemoglobin A1C 5.4 % (<5.7)
== END 2024-12-23 11:55 | disposition home or self-care (01) ==
LOC: ANHSURGERY 11:59
PROVIDERS: PCP Family Medicine; Visit Provider Orthopaedic Surgery
DX: M17.11 Unilateral primary osteoarthritis, right knee (principal); Z01.818 Encounter for other preprocedural examination
CPT/HCPCS: 80307; 82040; 83036; 85610; 85730; 86850; 86900; 86901; 87641

== ENCOUNTER 2024-12-29 02:49 | Day surgery (SDC) | payer MEDICARE, SELFPAY ==
[2024-12-23 12:18] VITALS: BP 106/63; RESP 16; TEMP 37.5; O2SAT 96; BMI 30.6
--- NOTE | 2024-12-23 12:40 | PC.NURSE ---
Report to the Outpatient Waiting Room, entrance under the green pavilion located off [facility], at time _1000am on date __12/29/24 . Planned Procedure Time: _1200pm .? Time changes happen often and if your time is changed the preop area will call you the afternoon before. - You and your visitor will be asked to self-screen and do not enter if you have any COVID symptoms. Please call surgeon if you need to reschedule. - A mask is optional within the hospital at this time. Patients may have clear liquids (water, carbonated beverages, clear teas, apple juice) until 3 hours prior to surgery with a maximum of 20 ounces. - No food from midnight until time of surgery and no smoking, or chewing tobacco (or any form of nicotine). No chewing gum, candy or mints. (0900am) Take only the following medications with a SIP of water on the morning of surgery: __Tylenol if needed DO NOT STOP ANY OF YOUR OTHER PRESCRIPTION MEDICATIONS PRIOR TO SURGERY EXCEPT THE FOLLOWING Hold all vitamins and supplements for 3 days per anesthesiologist. Date of last dose is 12/25/24 Medications to discontinue per physician Hole all IBUPROFEN/NSAIDS/ASA for [address] Strauss Date to take last dose 12/20/24 Please no make-up, nail bulgarian, hairspray, perfume, deodorant, or body powder the day of surgery.? No jewelry (including any body piercings) or valuables the day of surgery, leave them at home.? Please take a shower or bath the night before, or the morning of, surgery with an antibacterial soap.?HIBICLEANSE Wear comfortable, loose fitting clothing.? Bring your walker, tennis shoes, Cell phone, Cell manager order, Overnight bag, CPAP/dist water. - Jewelry must be removed prior to entering the operating room.? Rings and piercings that are not removed may be cut off. - The hospital will not accept responsibility for valuables.? - Please leave all valuables, including medications, at home the day of surgery. If you are going home after surgery, a licensed utility worker driver must drive you home.? - NO public transportation without another adult if you receive anesthesia. - We recommend that an adult stay with you for 24 hours following discharge. - We also recommend that you do not drive, make important decision, drink alcoholic beverages, or take any drugs that were not prescribed by your health care provider for at least 24 hours after your discharge time. Follow any additional instructions given to you from your surgeon. Telephone instructions given to __Patient and and asked if any additional questions and then verbalized understanding. Patient advised to call surgeon office or pre surgery nurse liaison [phone] if any additional questions.
[2024-12-29] VITALS (13 sets, daily range): BP systolic 117–143; BP diastolic 53–72; PULSE 73–102; RESP 16–20; TEMP 35.8–37.4; O2SAT 95–100
--- NOTE | ~2024-12-29 | XR_ITS ---
EXAMINATION: [id number] DATE: 12/29/2024 15:35 CDT INDICATION: Postoperative evaluation TECHNIQUE: 2 views right knee FINDINGS: There is a right total knee arthroplasty, with patellar resurfacing in expected position. Subcutaneous gas with fluid and air in the joint and overlying skin paul are consistent with rece nt intervention. No periprosthetic fracture. IMPRESSION: 1. Expected perioperative appearance of a right total knee arthroplasty and patellar resurfacing, as detailed above. Reviewed, dictated and finalized at location A. IMPRESSION: 1. Expected perioperative appearance of a right total knee arthroplasty and pat ellar resurfacing, as detailed above.
--- OUTSIDE RECORDS SUMMARY | 2024-12-29 02:52 | XMS_ITS | Clinical Summary ---
Author Organization [facility] Address [address] [place] [address] Care Team Providers Care Survey Associate Name Role Phone Unavailable Primary Care Provider [...]
--- OUTSIDE RECORDS SUMMARY | 2024-12-29 02:52 | XMS_ITS | Encounter Summary ---
Author Organization [facility] Address [address] [facility] [place] [address] Care Team Providers Care Tuck Pointer Helper Name Role Phone Rama Dacosta MD Primary Care Provider [phone] Encounter Details Date Type Department Care Team (Late st Contact Info) Description 07/08/2018 Lab Requisition [facility] Care DermPath Lab [address] [facility] [place] [address] Chris Paniagua MD [address] [place] [address] Social History Tobacco Use Types Packs/Day Years Used Date Smoking Tobacco: Never Assessed Sex and Gender Information Value Date Recorded Sex Assigned at Not on file Legal Sex Male 10:53 AM 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/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 Gender Identity Not on file Sexual Orientation Not on file documented as of this encounter Plan of Treatment Not on file documented as of this encounter Procedures Procedure Name Priority Date/Time Associated Diagnosis Comments DERMATOPATHOLOGY Routine 07/07/2018 12:0 0 AM ESTHETICIAN/OWNER documented in this encounter Results * DERMATOPATHOLOGY (07/07/2018 12:00 AM ESTHETICIAN/OWNER) Case Report Dermatopathology Report Case: [id number] Authorizing Provider: Chris Paniagua MD Collected: 07/07/2018 12:00 AM Pathologist: Parth Castellano MD Received: 07/08/2018 12:12 PM Specimen: Skin, left cheek 9 4:22 PM [facility] DERMATOPATHOLOGY LABORATORY Final Diagnosis Specimen A. SKIN, left cheek: BENIGN VERRUCOUS KERATOSIS, INFLAMED (L82.1) 9 4:22 PM [facility] DERMATOPATHOLOGY LABORATORY at [address] ESTHETICIAN/OWNER Clinical History R/O BCC, ISK,SCC 4:22 PM [facility] DERMATOPATHOLOGY LABORATORY Gross Description Specimen A: Received is one formalin filled container labeled with the patient's name and designated left cheek. The specimen consists of a shave biopsy measuring 8x7x4 mm, bisected. Jar 0. 9 4:22 PM [facility] DERMATOPATHOLOGY LABORATORY Microscopic Description Specimen A. SKIN, left cheek: Sections show hyperkeratosis, papillomatosis, hypergranulosis, and acanthosis. Inflammatory cells are present within the dermis. These histological findings can be seen in a verruca vulgaris or a seborrheic keratosis. 4:22 PM [facility] DERMATOPATHOLOGY LABORATORY Disclaimer An external and internal positive and negative controls are appropriate for the histochemical, immunohistochemical and immunofluorescence stain(s) in this case (if any), except where stated explicitly. The performance characteristics of the stain(s) cited in this report were developed and its performance characteristic determined by the Dermatopathology Laboratory at [facility], directed by Dr. Shraddha Castellano. These tests need not be, and therefore are not, approved by the [place] Food and Drug Administration. The tests are used for clinical purposes. Billing Codes Specimen Charges Stain Charges 66946 1 9 4:22 PM [facility] DERMATOPATHOLOGY LABORATORY Embedded Images 4:22 PM [facility] DERMATOPATHOLOGY LABORATORY Pathology/Cytolog y TISSUE SPECIMEN FROM SKIN / Unknown 07/07/2018 07/08/2018 12:12 PM ESTHETICIAN/OWNER Chris Paniagua MD LAB - PATHOLOGY/CYTOLOGY ORD ERABLES Final Result DERMATOPATHOLOGY LABORATORY [facility] - Department of Dermatology [address] [place] [address], 5th [place] [address], [facility] [phone] documented in this encounter Visit Diagnoses Not on filedocumented in this encounter Care Teams Tuck Pointer Helper Relationship Specialty Start Date End Date Rama Dacosta MD [address] [place] [address] PCP - General Family Medicine 04/22/16 documented as of this encounter
--- OUTSIDE RECORDS SUMMARY | 2024-12-29 02:52 | XMS_ITS | Patient Health Record ---
Author Organization [facility] [employer] [facility] Address [address] [place] [address] Care Team Providers Care Semi Driver Name Role Phone Rama Dacosta MD Primary Care Provider Monae Dacosta Unavailable [phone] Allergies No Known Allergies Reason For Referral [...] Propionate Diskus 50 MCG/ACT Inhalation *Reorder from [facility] for eRx and Interaction Alerts* 09/23/2023 Active Desonide 0.05 % External 09/23/2023 Act suma Loratadine 10 MG 1 tablet Orally Once a day Active Omeprazole 40 MG Oral 09/23/2023 Ac tive Naltrexone HCl 50 MG 1 tablet Oral Once a day; Duration: 90 days 09/23/2023 03/20/2025 Active FLUZONE HIGH-DOSE QUAD 2019-21 (PF) 240 MCG/0.7 ML IM SYRINGE *Reorder from [facility] for eRx and Interaction Alerts* 09/23/2023 Active Ketoconazole 2% External 09/23/2023 Act suma Mometasone Furoate 0.1 % External 09/23/2023 Active BUPROPION HYDROCHLORIDE ER (XL) 150 MG TB24 *Reorder from [facility] for eRx and Interaction Alerts* 09/23/2023 Active [...] Risk Notes Problem Chronic alcoholism in remission (478430474) Alcohol dependence, in remission (F10.21) Active confirmed Problem Bipolar affective disorder, currently depressed, mild (478477581) Bipolar disorder, current episode depressed, mild (F31.31) 09/23/19 24 Active confirmed Problem Generalized anxiety disorder (16884226) Generalized anxiety disorder (F41.1) 09/23/19 24 Active confirmed Problem Insomnia disorder related to another mental disorder (55299487) Insomnia due to other mental disorder (F51.05) 09/23/19 24 Active confirmed Problem Screening for cardiovascular system disease (206179440) Encounter for screening for cardiovascular disorders (Z13.6) Active confirmed Problem Long-term current use of drug therapy (042738221) Other half-way (current) drug therapy (Z79.899) 09/23/19 24 Active confirmed Problem Elevated blood-pressure reading without diagnosis of hypertension (991747175) Elevated blood pressure reading (R03.0) Active confirmed Vital Signs Heart Rate 89 /min 09/21/2024 Respiratory Rate 18 /min 09/21/2024 Height-cm 177.80 cm 09/21/2024 Blood pressure diastolic 84 mm Hg 09/21/2024 Weight-kg 96.07 kg 09/21/2024 Height 70.00 in 09/21/2024 Blood pressure systolic 117 mm Hg 09/21/2024 Weight 211.8 lbs 09/21/2024 BMI 30.39 kg/m2 09/21/2024 Encounters Encounter Location Date Provider Diagnosis [facility] [employer] [address] [place] [address] 03/23/2024 Monae Quinteros Bipolar disorder, current episode depressed, mild F31.31 ; Generalized anxiety disorder F41.1 ; Alcohol dependence, in remission F10.21 ; Insomnia due to other mental disorder F51.05 ; Other long term acute care registered nurse (current) drug therapy Z79.899 and Elevated blood pressure reading R03.0 [employer] [facility] [facility] [address] [place] [address] 09/21/2024 Monae Quinteros Negative depression screening Z13.31 ; Bipolar disorder, current episode depressed, mild F31.31 ; Encounter for screening for cardiovascular disorders Z13.6 ; Generalized anxiety disorder F41.1 ; Alcohol dependence, in remission F10.21 ; Insomnia due to other mental disorder F51.05 ; Other half-way (current) drug therapy Z79.899 and Elevated blood [...] neurotoxicity and interactions with prescribed medications. 09/21/2024 Bipolar disorder, current episode depressed, mild [...] and interactions with prescribed medications. 03/23/2024 Other long term acute care registered nurse (current) drug therapy (ICD-10 - Z79.899) presently [...] and interactions with prescribed medications. 09/21/2024 Other long term acute care registered nurse (current) drug therapy (ICD-10 - Z79.899) presently [...] or national office of the Alzheimer's Association (3-310-352-284 0; http://www.alz .org), the Alzheimer's Disease Education and Referral Center (ADEAR) (2-058-330-507 0; http://www.airam .nih.gov/Alzhe bria/), presently taking Naltrexone [...] Provider Name:Monae Neli , 03/22/2025 11:45:00 AM, [address], [place], [address], Insurance Providers Payer Name Payer Address Payer Phone Subscriber Number Group Number Insured Name Patient Relationship to Insured Coverage Start Date Coverage End Date [employer] [address] [place] [address] [id number] KEEN Self - patient is the insured Medical (General) History Medical History History ICD Code Problems: Acute COVID-19 Alcohol dependence Bipolar affective disorder, currently de pressed, mild Generalized anxiety disorder Insomnia disorder related to another men shana disorder Long-term drug therapy Vitamin D deficiency , Surgical History Surgery Date(Month/Year) appendix 1999 gall bladder
--- OUTSIDE RECORDS SUMMARY | 2024-12-29 02:52 | XMS_ITS | Continuity of Care Document ---
Author Organization [facility] Address [address] [place] [address] Phone Care Team Providers Care Computer Analyst Name Role Phone Head OD, Karan Unavailable Unavailable Procedures Procedure Date Eye Exam & Treatment Eye Exam & Treatment Refraction Eye Exam Established Pt Eye Exam & Treatment Refraction Eye Exam, New Patient Advance Directives Directive Yes / No Effective Date File Name No Information Encounters Encounter Description Practice Location Reason(s) For Visit Diagnoses Date Provider Providers Copied on Encounter [facility], [address] [place] [address] [address], [place], [place], [id number], [place] tel:[phone] [facility] No Information 7-201 0 Head OD Karan. [address] , [address], [place], [place], [facility], [place]. tel:[phone] [facility], [address], [place], [place], [address], [place] tel:[phone] [facility] No Information 0-200 9 Head OD Karan. [address] [facility] , [address], [place], [address], [place]. tel:[phone] [facility], [address], [place], [place], [id number], [place] tel:[phone] [facility] No Information Apr-1 7-200 8 Head OD Karan. [address] [facility] , [address], [place], [place], [facility], . tel:[phone] [facility], [address], [place], [place], [id number], tel:[phone] [facility] No Information Mar-0 6-200 8 Head OD Karan. [address] [facility] , [address], [place], [place], [facility], [place]. tel:[phone] [facility], [address], [place], [place], [id number], tel:[phone] [facility] No Information Feb-2 6-200 8 Perez Lara. [address] [facility] , [address], [place], [place], [facility], [place]. tel:[phone] Family History Family Member Type Diagnosis Age At Onset No Information Payers Payer name Insurance type Covered green party ID Authoriza tion(s) No Information Social [...]
--- OUTSIDE RECORDS SUMMARY | 2024-12-29 02:52 | XMS_ITS | Clinical Summary ---
Author Organization [facility] Address [address] Lui: Erika Pretayla [place] [address] Care Team Providers Care Ocean Fishing Guide Name Role Phone Unavailable Primary Care Provider [...] ears 60 Gram 2 04/24/2022 12:54 PM JAVA SYSTEMS ANALYST 2 Active buPROPion HCL (WELLBUTRIN XL) 150 [...] EVENING. 90 Tablet 3 07/10/2023 11:47 AM JAVA SYSTEMS ANALYST 3 Active fluticasone propionate (FLONASE) 50 mcg/spray [place], Suspension nasal inhaler Administer 1 [place] in each nostril 2 times daily. 16 Gram 11/27/2022 1:14 PM CDT 3 Active ARIPiprazole (ABILIFY) 5 mg tablet TAKE ONE TABLET BY MOUTH AT BEDTIME 90 Tablet 1 07/10/2023 11:47 AM JAVA SYSTEMS ANALYST 3 Active naltrexone (DEPADE) 50 mg tablet [...] times daily. 20 Tablet 06/15/2024 2:10 PM JAVA SYSTEMS ANALYST 5 Active rosuvastatin (CRESTOR) 5 mg tablet [...]
--- OUTSIDE RECORDS SUMMARY | 2024-12-29 02:52 | XMS_ITS | Clinical Summary ---
Author Organization [facility] Address [address] [place] [address] Care Team Providers Care Polish Maker Name Role Phone Rama Dacosta MD Primary Care Provider [phone] Source Comments [facility],non-owned Affiliates and Associated Physician Practices is amultiple site organization consisting of ambulatory clinics and hospital sitesin [place], [place], [place] and [place]. This disclosure is being madepursuant to the Care Everywhere program and may not contain all information available regarding this patient. Last updated 18.[facility] Immunizations Immunization Administration Dates Next Due INFLUENZA VACCINE, HIGH-DOSE , QUADR. 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
--- OUTSIDE RECORDS SUMMARY | 2024-12-29 02:52 | XMS_ITS | Clinical Summary ---
Author Organization [address] Address [address] [place] [address] Care Team Providers Care Supervisor Statement Clerks Name Role Phone Rama Dacosta MD Primary Care Provider [phone] Allergies No known active allergies Medications ARIPiprazole [...] on file Legal Sex Male 12:48 PM FAMILY READINESS SUPPORT ASSISTANT Gender Identity Not on file Sexual Orientation [...] Plan of Treatment Not on file Insurance [facility] MEDIC[facility] Address: [address] [address] Care Teams Supervisor Statement Clerks Relationship Specialty Start Date End Date Rama Dacosta MD PCP - General Family Medicine 08/10/20
[2024-12-29] MEDS: LACTATED RINGERS 1,000 ML 30 ML IV CONT ×2 (10:45→15:03)
[2024-12-29] MEDS: TRANEXAMIC ACID 1,000MG/ISO100 1,000 MG/100 ML BAG 200 MG IVPB (10:52)
[2024-12-29] MEDS: ACETAMINOPHEN 500 MG TABLET 1000 MG PO (10:58)
--- NOTE | 2024-12-29 12:22 | WPDHPUPDATE1 ---
History and Physical Update Update Date/Time: 12/29/24 12:22 History and Physical has been reviewed, including an updated exam of the patient. There are NO changes in the patient's condition. Risks, benefits, and alternatives have been discussed and questions answered. Patient agrees to proceed with procedure.
--- NOTE | 2024-12-29 12:26 | P.PNAN_ITS ---
Anes - Initial Pre Proc Eval Procedure: Operation Date: 12/29/24 12:00 Proposed Procedures p Right Total Knee Arthroplasty - Harry Strauss MD Date/Time: 12/29/24 12:26 Surgeon: Harry Strauss MD Pre Op Diagnosis: right knee oa Patient Data Age: 79 Gender: M Height: 1.78 m Weight: 94.4 kg Last Vital Signs Temp 98.3 F 12/29/24 10:08 Pulse 90 12/29/24 10:08 Resp 20 12/29/24 10:08 BP 117/64 12/29/24 10:08 Pulse Ox 98 12/29/24 10:08 O2 Del Method Room Air 12/29/24 10:08 Allergies Allergy/AdvReac Type Severity Reaction Status Date / Time phenytoin Allergy Unknown Unknown Verified 12/29/24 11:44 Home Medications ?Medication ?Instructions ?Recorded ?Confirmed ?Type aripiprazole 5 mg tablet 5 mg PO QPM 11/29/19 12/29/24 History bupropion HCl 150 mg 24 hr tablet, 150 mg PO .PM 11/29/19 12/29/24 History extended release naltrexone 50 mg tablet 50 mg PO DAILY 11/29/19 12/29/24 History ketoconazole 2 % shampoo 1 applic topical 2XW PRN Outbreak 06/07/20 12/23/24 History melatonin 10 mg capsule 10 mg PO QHS 11/21/20 12/29/24 History Glucosamine Chondroitin 1 cap PO DAILY 06/18/21 12/29/24 History bioflavonoids 200 mg capsule 200 mg PO DAILY 06/18/21 12/29/24 History omeprazole 40 mg capsule,delayed 40 mg PO QPM #90 caps 11/24/23 12/29/24 Rx release loratadine 10 mg tablet 10 mg PO QPM #90 tabs 03/09/24 12/29/24 Rx rosuvastatin 5 mg tablet 5 mg PO DAILY #30 tabs 07/11/24 12/23/24 Rx cetirizine 10 mg tablet (24Hour 10 mg PO DAILY 09/28/24 12/29/24 History Allergy) potassium gluconate 550 mg (90 mg) 550 mg PO DAILY 09/28/24 12/29/24 History tablet ergocalciferol (vitamin D2) 1,250 1,250 mcg PO WEEKLY #12 caps 11/04/24 12/29/24 Rx mcg (50,000 unit) capsule (Vitamin D2) tamsulosin 0.4 mg capsule (Flomax) 0.4 mg PO QHS #30 caps 12/14/24 12/29/24 Rx vitamin B complex 1 tablet PO DAILY #100 tabs 12/14/24 12/29/24 Rx chlorhexidine gluconate 4 % 1 applic topical ONCE #237 mL 12/17/24 12/23/24 Rx topical liquid (Hibiclens) Patient hx anesthesia problems: none Family hx anesthesia problems: none Results Review: All pre-operative results and documents have been reviewed as part of the pre- operative evaluation. PMFSH Past Medical History Medical History Other fatigue Left knee DJD Right knee DJD Overweight (BMI 25.0-29.9) Insomnia Encounter for immunization Seborrheic keratoses KERRIE (obstructive sleep apnea) Persistent cough for 3 weeks or longer Allergic rhinitis Alcohol abuse Essential hypertension Gastroesophageal reflux disease Hyperlipidemia, unspecified Major depressive disorder, single episode, unspecified Prediabetes Thrombocytopenia Surgical History Surgical History History of appendectomy H/O colonoscopy with polypectomy Family History Family History Mother Family history of osteoporosis Father Family history of hearing loss Social History Social History Smoking packs per day: 1 Smoking cigarettes per day: 20.0 Years smoked: 15 Smoking pack-years: 15.00 Smoking status: Former smoker (stopped 5 years Smoked 20 years 1ppd) Tobacco type: cigarettes Second hand tobacco smoke exposure: No Smoking end date: 05/19/15 Alcohol intake: former Substance use: never Substance use type: does not use Lack of Transportation: No Lack of Food: Never True Current Housing: I Have Housing Concerned About Future Housing: No Difficulty Paying Gas/Electric Bills: No Difficulty Paying for Meds: No Currently Unemployed: No Education: Bachelor's Degree Difficulty w/ Childcare or Family Care: No Living arrangements: with family Additional living arrangements comments: [place] Gender identity (if verbalized by the patient): Male Spiritual care concerns: No Anes - Eval Final PreProcedure Day of Procedure 12/29/24 12:26 Patient weight: overweight Lungs: normal air movement Airway: Mallampati scale class II and special considerations (Missing several upper and lower teeth, none loose per pt. ) Neurological: alert and oriented Last oral intake: >/= 8 hours Emergent: no Anesthetic plan: proceed Anesthesia type and monitoring: general ETT and standard monitoring Results Review: All pre-operative results and documents have been reviewed as part of the pre- operative evaluation. Hyperlipidemia, KERRIE on CPAP (severe), ex smoker quit 2016, hx of ETOH use/abuse and has not been drinking in approx 7 years, natrexone on hold for 3 days. EKG NSR, ECHO w nml LVEF 60%, no pulmon HTN. Pt can walk short distances, no cp or sob. Informed Consent: The patient's anesthetic plan and its attendant risks and benefits were discussed with the patient/family/POA. Questions were solicited and answers provided to the satisfaction of the patient/family/POA.
--- NOTE | 2024-12-29 12:41 | WPDANESPNB ---
Anes - Peripheral Nerve Block Date/Time: 12/29/24 12:41 I have discussed with the patient/family/POA the placement of a peripheral nerve block for post-operative pain management, including associated risks, benefits, complications, and side effects. Alternative methods of post-operative analgesia were detailed. Questions were solicited and answers provided to the satisfaction of the patient/family/POA. Time-Out: A pre-procedural Time-Out was completed immediately before starting the procedure and confirmed: Patient Identification, Site, Procedure, Patient Position and the Availability of Requisite Equipment. Clinical Indications: Acute post-operative pain management requested by the operative surgeon. Nerve Block Insertion Note Anes-nerve block: adductor canal right Patient position: supine Skin prep: chlorhexidine Needle: 22 gauge, stimulating, insulated echogenic needle. Needle length: 80 mm Technique: ultrasound Injectate: ropivacaine 0.50% and other (Bupiv 0.5% 12 mls. ) Observations: tolerated well Procedure start time:: 1230 Procedure end time:: 1238
[2024-12-29] MEDS: ceFAZolin 2 GM in SODIUM CHLORIDE 0.9% IV 50 ML 100 ML IVPB (13:00)
[2024-12-29] MEDS: SODIUM CHLORIDE 0.9% IV 37.7 ML, MORPHINE SULFATE INJ (*CRX) 2 MG, ROPivacaine HCL 1% 2... INFILTRATE (13:28)
[2024-12-29] MEDS: TRANEXAMIC ACID 1,000 MG/10 ML AMPUL 1000 MG IV PUSH (14:31)
--- NOTE | 2024-12-29 14:57 | W.PM.PROC2 ---
Procedure Note - Detailed Date of Procedure 12/29/24 Pre-op Diagnosis right knee oa Post-op Diagnosis Same Procedure Performed R TKA Surgeon Harry Strauss MD Anesthesia General Description of Procedure THE RIGHT KNEE WAS PREPPED AND DRAPED IN THE STERILE FASHION. THERE WAS A 20 DEGREE FLEXION CONTRACTURE. A MIDLINE SKIN INCISION WAS MADE. A MEDIAL PARAPATELLAR ARTHROTOMY WAS MADE. THE PATELLA WAS EVERTED. THERE WAS TRICOMPARTMENT DJD. THERE WAS MINIMAL PATELLA DJD. AN INTRAMEDULLARY IMELDA WAS PLACED IN THE FEMUR. A DISTAL FEMORAL CUT WAS MADE IN 5 DEGREES OF VALGUS REMOVING APPROXIMATELY 11 MM OF BONE FROM THE DISTAL FEMUR. THE FEMUR WAS SIZED TO 72.5. A 72.5 FEMORAL CUTTING BLOCK WAS PLACED IN 3 DEGREES OF EXTERNAL ROTATION AND IN ALIGNMENT WITH LAUREN'S LINE AND THE TRANSEPICONDYLAR AXIS. ANTERIOR POSTERIOR AND CHAMFER CUTS WERE MADE. THE CUTS WERE EXCELLENT. NEXT AN INTRAMEDULLARY CUTTING GUIDE WAS PLACED IN THE TIBIA. A TRANS TIBIAL CUT WAS MADE ALONG THE LONG AXIS OF THE TIBIA. APPROXIMATELY 10 MM OF BONE WAS REMOVED FROM THE HIGH SIDE OF THE TIBIA. THE TIBIA WAS THEN PLANED TO A SMOOTH SURFACE. POSTERIOR FEMORAL OSTEOPHYTES WERE REMOVED FROM THE FEMORAL CONDYLES. A 83 TIBIAL TRIAL WAS PLACED IN ALIGNMENT WITH THE 1/3 MEDIAL ASPECT OF THE TIBIAL TUBERCLE. THEN A 72.5 FEMORAL TRIAL COMPONENT WAS PLACED. BOTH HAD EXCELLENT FITS. EVENTUALLY A 10 MM CR POLYETHYLENE TRIAL COMPONENT WAS PLACED. THE KNEE WAS TAKEN THROUGH A RANGE OF MOTION. THE KNEE CAME OUT TO FULL EXTENSION. THERE WAS NO ABNORMAL TILT TO THE PATELLA. THERE WAS GOOD A/P AND VARUS/VALGUS STABILITY. THERE WAS NO EXCESSIVE ROLL BACK WITH FLEXION. THE TRIAL COMPONENTS WERE REMOVED. THEN A 72.5 FEMORAL COMPONENT AND 83 TIBIAL COMPONENT WITH A 10 CR POLYETHYLENE COMPONENT WERE CEMENTED INTO PLACE. ONCE THE CEMENT WAS HARD THE KNEE WAS TAKEN THROUGH A ROM AGAIN AND FOUND TO BE STABLE WITH NO PATELLA TILT NO EXCESSIVE ROLL BACK WITH FLEXION AND GOOD STABILITY WITH COMPLETE AND FULL EXTENSION. THE KNEE WAS IRRIGATED WITH STERILE BETADINE AND WATER FOR ABOUT 3 MINUTES. THE BLEEDERS WERE CAUTERIZED. THE ARTHROTOMY WAS REPAIRED WITH NUMBER 1 VICRYL. THE SUB CUTANEOUS LAYER WITH 2-0 VICRYL AND THE SKIN WITH MINISTERIO. THE WOUND WAS WASHED AND A STERILE DRESSING WAS APPLIED. PATIENT WAS EXTUBATED. Estimated Blood Loss -150.0 Pathology None sent Complications No immediate complications Condition Stable Disposition PACU
[2024-12-29] MEDS: fentaNYL CITRATE INJ (*CRX) 100 MCG/2 ML VIAL 25 MCG IV PUSH ×8 (15:18→15:39)
[2024-12-29] MEDS: HYDROmorphone HCL INJ (*CRX) 1 MG/ML SYR 0.25 MG IV PUSH ×4 (15:42→16:02)
--- NOTE | 2024-12-29 16:49 | ADMGEN ---
This patient, Maco Mendoza, was admitted to [facility] Surg Room 312-01. Patient/family oriented to hospital policies and general routines including ID bracelet, bed and alarms, visiting hours, pain management, procedures, bathroom and other care routines, personal items, smoking policy, room service/diet, and visiting hours. Information on how to activate the Rapid Response Team has been discussed. Patient/Family are encouraged to report perceived risks to care and to ask questions if they do not understand what they are told or what they should do.
[2024-12-29] MEDS: SENNA/DOCUSATE SODIUM TABLET 2 TAB PO (17:09)
[2024-12-29] MEDS: buPROPion HCL XL (24 HR) 150 MG TABCR PO (17:09)
[2024-12-29] MEDS: CELECOXIB 200 MG CAPSULE PO (17:09)
[2024-12-29] MEDS: oxyCODONE/ACETAMINOPHEN (*CRX) 10-325 MG TABLET 1 TAB PO (20:36)
[2024-12-29] MEDS: ASPIRIN 325 MG ENTERIC TABLET PO (20:36)
[2024-12-29] MEDS: FAMOTIDINE 20 MG TABLET PO (20:38)
[2024-12-29] MEDS: ceFAZolin 2 GM/D5W 50 ML 2 GM/50 ML BAG IVPB (20:38)
[2024-12-30 02:07] VITALS: BP 104/56; PULSE 76; RESP 14; TEMP 36.5; O2SAT 96
[2024-12-30] MEDS: oxyCODONE/ACETAMINOPHEN (*CRX) 5-325 MG TABLET 1 TABLET PO (04:23)
[2024-12-30] MEDS: ceFAZolin 2 GM/D5W 50 ML 2 GM/50 ML BAG IVPB ×2 (04:23→12:33)
[2024-12-30 05:16] VITALS: BP 111/58; PULSE 80; RESP 18; TEMP 36.4; O2SAT 98
[2024-12-30 05:58] LABS: Hematocrit 36.3 % (42.0-52.0); Hemoglobin 12.0 g/dL (14.0-18.0); Immature Granulocyte Percent A 0.2 % (0-0.5); Immature Platelet Fraction Pct 2.7 % (0.9-11.2); Lymphocytes Absolute Auto 0.82 K/mm3 (0.9-3.2); Mean Corpuscular HGB Conc 33.1 g/dl (32-36); Mean Corpuscular Hemoglobin 32.0 pg (26-34); Mean Corpuscular Volume 96.8 fl (80-100); Nucleated Red Blood Cells Absolute Auto 0.000 K/mm3 (0.0-0.012); Nucleated Red Blood Cells Perc 0.0 % (0.0-0.2); Platelet Count Result 120 k/mm3 (150-375); Red Blood Count 3.75 M/mm3 (4.6-6.20); White Blood Count 6.3 K/mm3 (4.5-10.0)
[2024-12-30 06:19] LABS: Anion Gap 4 mmol/L (4-12); Blood Urea Nitrogen 9 mg/dL (9-20); Calcium 8.6 mg/dL (8.4-10.2); Carbon Dioxide 27 mmol/L (22-30); Chloride 102 mmol/L (98-107); Estimated CRCL calculation 64 ml/min; Estimated Glomerular Filt Rate > 60; Glucose 96 mg/dL (65-110); Potassium 3.7 mmol/L (3.4-5.0); Sodium 133 mmol/L (137-145)
[2024-12-30 07:50] VITALS: BP 97/53; PULSE 75; RESP 16; TEMP 36.4; O2SAT 96
[2024-12-30] MEDS: SENNA/DOCUSATE SODIUM TABLET 2 TAB PO (08:28)
[2024-12-30] MEDS: ROSUVASTATIN 5 MG TABLET PO (08:28)
[2024-12-30] MEDS: CELECOXIB 200 MG CAPSULE PO (08:28)
[2024-12-30] MEDS: ASPIRIN 325 MG ENTERIC TABLET PO (08:28)
[2024-12-30] MEDS: FAMOTIDINE 20 MG TABLET PO (08:28)
[2024-12-30 12:15] VITALS: BP 107/47; PULSE 81; RESP 15; TEMP 36.7; O2SAT 94
--- NOTE | 2024-12-30 12:39 | P.PNAN_ITS ---
Anes - Prog Note Post-Op Date/Time: 12/30/24 12:39 Cardiovascular status: normal Respiratory status: normal Airway patency: baseline Mental status: baseline Vital Signs: Last Vital Signs Temp 36.7 C 12/30/24 12:15 Pulse 81 12/30/24 12:15 Resp 15 12/30/24 12:15 BP 107/47 L 12/30/24 12:15 Pulse Ox 94 12/30/24 12:15 O2 Del Method Room Air 12/30/24 09:46 O2 Flow Rate 6 12/29/24 15:30 Pain Score (VAS): 2 I/O: Intake & Output 12/29/24 12/30/24 12/30/24 23:59 07:59 15:59 Intake Total 1110 590 240 Output Total 700 Balance 1110 -110 240 Laboratory Tests 12/30/24 05:10 12/30/24 05:10 12/30/24 05:10 WBC 6.3 RBC 3.75 L Hgb 12.0 L D Hct 36.3 L MCV 96.8 MCH 32.0 MCHC 33.1 RDW 12.4 Plt Count 120 L MPV 10.4 Immature Gran % (Auto) 0.2 Neut % (Auto) 74.8 H Lymph % (Auto) 13.0 L [place] % (Auto) 10.9 H Eos % (Auto) 0.9 Baso % (Auto) 0.2 Lymph # (Auto) 0.82 L [place] # (Auto) 0.7 H Eos # (Auto) 0.1 Baso # (Auto) 0.0 Abs Immat Gran (auto) 0.01 Absolute Neuts (auto) 4.7 Absolute Nucleated RBC 0.000 Nucleated RBC % 0.0 % Immature Plt Fraction 2.7 Sodium 133 L Potassium 3.7 Chloride 102 Carbon Dioxide 27 Anion Gap 4 BUN 9 Creatinine 0.83 Estim Creat Clear Calc 64 Estimated GFR > 60 Glucose 96 Calcium 8.6 Patient Feedback: Patient satisfied with anesthetic care.
--- NOTE | 2024-12-30 12:48 | P.PNOP_ITS ---
Progress Note: A&P Assessment and Plan (1) S/P total knee arthroplasty: Qualifiers: Laterality: right Qualified Code(s): Z96.651 - Presence of right artificial knee joint Code(s): Z96.659 - Presence of unspecified artificial knee joint Status: Acute Assessment and Plan: POD #1 : Right TKA Continue PT/OT. WBAT. Walker. HIGH FALL RISK. Continue pain control. Ice Knee. Protect skin. DVT prophylaxis with Aspirin. SCDs. Incentive Spirometry Use reviewed. Monitor Dressing. Change prior to discharge. Bowel Regimen. Dispo: Home with Home Health pending progress with PT/OT Plan Reviewed history, exam, radiographs and current labs with attending MD and covering surgeon, Dr. Strauss, who agrees with current plan as indicated above. No further recommendations from Dr. Strauss at this time. Time Spent With Patient Time with patient: less than 15 minutes Subjective Subjective Date/Time Seen: 12/30/24 12:48 Post Op day: 1 Interval history: POD #1: R TKA Patient doing very well. Pain well controlled. Hopeful for d/c home today. Review of Systems Review of Systems: All systems reviewed & are unremarkable except as noted in HPI and below Constitutional: Constitutional: Denies fever(s) and Denies headache(s) ENT: Denies headache(s) Cardiovascular: Cardiovascular: Denies chest pain, Denies diaphoresis, Denies palpitations and Denies dyspnea Respiratory: Respiratory: Denies dyspnea Gastrointestinal: Gastrointestinal: Denies abdominal pain, Denies constipation, Denies nausea and Denies vomiting Genitourinary: Genitourinary: Denies dysuria and Reports nocturia Musculoskeletal: Musculoskeletal: Reports arthralgias (Right Knee ) and Reports joint swelling (Right Knee ) Neurologic: Denies headache(s) Endocrine: Endocrine: Denies palpitations Exam Const: General: comfortable and no acute distress Resp: Effort & Inspection: normal respiratory effort Cardio: Rate: regular rate Rhythm: regular rhythm GI: GI Palp: Yes Soft to palpation, No Tenderness to palpation present (GI) and No Guarding due to palpation present (GI) Skin: General skin exam: wounds noted Wounds: wounds noted Other: Incision c/d/i. No surrounding redness/warmth. No hematoma. Mild ecchymosis. No wound dehiscence Neuro: Cognition (Neuro): normal cognition Other: NV intact aside from block. Moves toes. Sensation intact to light touch. +ankle dorsiflexion/plantarflexion. Extrem: Right lower extremity: normal to inspection, knee Details: tenderness (diffuse, mild ) Location: of the patella, swelling (diffuse, consistent with surgical intervention ), abnormal ROM Details: pain with active ROM during, pain with passive ROM during and with range as follows (limited due to recent surgical intervention ); able to extend lower leg actively and ecchymosis (mild ), lower leg (Negative Mona's Sign ) Details: normal to inspection; no erythema and no tenderness, ankle (+ankle dorsiflexion/plantarflexion ) Details: normal to inspection, no edema and normal ROM; no tenderness, no swelling and no ecchymosis and foot Details: normal capillary refill, normal to inspection, vascular exam Details: dorsalis pedis pulse present and motor-sensory exam Details: light-touch normal; no tenderness Left lower extremity: normal to inspection Psych: Mental Status: mental status grossly normal Objective Data Vital Signs Vital Signs: Vital Signs - 24 hr 12/29/24 15:03 12/29/24 15:15 12/29/24 15:30 Temperature 37.4 C Pulse Rate 85 79 74 Respiratory Rate 16 16 18 Blood Pressure 143/72 H 124/55 L 120/69 Pulse Oximetry 100 100 100 Oxygen Delivery Simple Face Mask Simple Face Mask Simple Face Mask Oxygen Flow Rate 6 6 6 12/29/24 15:45 12/29/24 16:00 12/29/24 16:15 Temperature 37.2 C Pulse Rate 74 73 74 Respiratory Rate 20 20 20 Blood Pressure 127/69 125/70 128/69 Pulse Oximetry 100 99 97 Oxygen Delivery Room Air Room Air Room Air Oxygen Flow Rate 12/29/24 16:37 12/29/24 17:07 12/29/24 18:07 Temperature 36.2 C L 35.8 C L 36.6 C Pulse Rate 73 73 82 Respiratory Rate 20 20 20 Blood Pressure 130/64 133/56 L 121/53 L Pulse Oximetry 98 98 98 Oxygen Delivery Oxygen Flow Rate 12/29/24 20:30 12/29/24 22:07 12/29/24 23:45 Temperature 36.9 C Pulse Rate 102 H 102 H Respiratory Rate 16 16 Blood Pressure 122/60 Pulse Oximetry 95 95 95 Oxygen Delivery Room Air Nasal Cannula Oxygen Flow Rate 12/29/24 23:45 12/30/24 02:07 12/30/24 05:16 Temperature 36.5 C 36.4 C L Pulse Rate 76 80 Respiratory Rate 14 18 Blood Pressure 104/56 L 111/58 L Pulse Oximetry 95 96 98 Oxygen Delivery Room Air Oxygen Flow Rate 12/30/24 07:50 12/30/24 08:00 12/30/24 08:37 Temperature 36.4 C Pulse Rate 75 Respiratory Rate 16 Blood Pressure 97/53 L Pulse Oximetry 96 Oxygen Delivery Room Air Room Air Oxygen Flow Rate 12/30/24 09:46 12/30/24 12:15 Temperature 36.7 C Pulse Rate 81 Respiratory Rate 15 Blood Pressure 107/47 L Pulse Oximetry 94 Oxygen Delivery Room Air Oxygen Flow Rate Intake/Output Intake/Output: Intake & Output 12/27/24 12/28/24 12/29/24 12/30/24 23:59 23:59 23:59 23:59 Intake Total 1160 830 Output Total 700 Balance 1160 130 Meds/Results Medications: Active Medications Generic Name Dose Route Start Last Admin Trade Name Freq PRN Reason Stop Dose Admin Acetaminophen 500 mg 12/29/24 16:22 Acetaminophen 500 Mg Tablet PO Q6H PRN Pain Rated 1-3 Aripiprazole 5 mg 12/29/24 18:00 12/29/24 17:09 Aripiprazole 5 Mg Tablet PO 5 mg QPM GALO Administration Aspirin 325 mg 12/29/24 21:00 12/30/24 08:28 Aspirin 325 Mg Enteric Tablet PO 325 mg Q12HR GALO Administration Bupropion HCl 150 mg 12/29/24 18:00 12/29/24 17:09 Bupropion Hcl Xl (24 Hr) 150 Mg Tabcr PO 150 mg QPM GALO Administration Celecoxib 200 mg 12/29/24 17:00 12/30/24 08:28 Celecoxib 200 Mg Capsule PO 200 mg BIDWM GALO Administration Diazepam 5 mg 12/29/24 16:22 Diazepam (*Crx) 5 Mg Tablet PO Q8H PRN Spasms Diphenhydramine HCl 25 mg 12/29/24 16:22 Diphenhydramine Hcl Inj 50 Mg/Ml Vial IV PUSH Q6H PRN Itching Ergocalciferol 1,250 mcg 01/01/25 09:00 Ergocalciferol (Vitamin D2) 1,250 Mcg (50,000 Units) Capsule PO WEEKLY GALO Famotidine 20 mg 12/29/24 21:00 12/30/24 08:28 Famotidine 20 Mg Tablet PO 20 mg Q12HR GALO Administration Hydromorphone HCl 1 mg 12/29/24 16:22 Hydromorphone Hcl Inj (*Crx) 1 Mg/Ml Syr IV PUSH Q2H PRN Breakthrough Pain Rated 7-10 or NPO Hydromorphone HCl 0.5 mg 12/29/24 16:22 Hydromorphone Hcl Inj (*Crx) 1 Mg/Ml Syr IV PUSH Q2H PRN Breakthrough Pain Rated 4-6 or NPO Cefazolin Sodium 2 gm in 50 mls @ 100 mls/hr 12/29/24 21:00 12/30/24 12:33 Ancef 2 Gm/D5w 50 Ml IVPB 12/30/24 13:29 100 mls/hr Q8H GALO Administration Ibuprofen 800 mg in 200 mls @ 400 mls/hr 12/29/24 16:22 Caldolor 800 Mg/200 Ml IVPB Q6H PRN Breakthrough Pain Rated 1-3 or NPO Naloxone HCl 0.1 mg 12/29/24 16:22 Naloxone Hcl 0.4 Mg/Ml Vial IV PUSH Q2M PRN Opiate Reversal Non-Formulary Medication 1 each 12/29/24 16:37 Nonformulary Nutritional Supplement XX 12/30/24 16:36 PRN PRN PROTOCOL Nonformulary Drug ( 1 each 12/29/24 16:41 Potassium Gluconate XX 12/30/24 16:40 550 Mg (90 Mg) PRN PRN Tablet) PROTOCOL Ondansetron HCl 4 mg 12/29/24 16:22 Ondansetron Inj 4 Mg/2 Ml Vial IV PUSH Q4H PRN Nausea And Vomiting Oxycodone/Acetaminophen 1 tablet 12/29/24 16:22 12/30/24 04:23 Oxycodone/Acetaminophen (*Crx) 5-325 Mg Tablet PO 1 tablet Q4H PRN Administration Pain Rated 4-6 Oxycodone/Acetaminophen 1 tab 12/29/24 16:22 12/29/24 20:36 Oxycodone/Acetaminophen (*Crx) 10-325 Mg Tablet PO 1 tab Q6H PRN Administration Pain Rated 7-10 Polyethylene Glycol 17 gm 12/30/24 09:00 12/30/24 08:28 Polyethylene Glycol 3350 17 Gm Powd.Pack PO 17 gm QAM GALO Administration Rosuvastatin Calcium 5 mg 12/30/24 09:00 12/30/24 08:28 Rosuvastatin 5 Mg Tablet PO 5 mg DAILY GALO Administration Senna/Docusate Sodium 2 tab 12/29/24 17:00 12/30/24 08:28 Senna/Docusate Sodium Tablet PO 2 tab BID GALO Administration Radiology Results: ITS Impressions Knee X-Ray 12/29/24 15:35 IMPRESSION: 1. Expected perioperative appearance of a right total knee arthroplasty and patellar resurfacing, as detailed above. Labs Labs: Laboratory Results - last 24 hr 12/30/24 05:10 WBC 6.3 RBC 3.75 L Hgb 12.0 L D Hct 36.3 L MCV 96.8 MCH 32.0 MCHC 33.1 RDW 12.4 Plt Count 120 L MPV 10.4 Immature Gran % (Auto) 0.2 Neut % (Auto) 74.8 H Lymph % (Auto) 13.0 L Laporte % (Auto) 10.9 H Eos % (Auto) 0.9 Baso % (Auto) 0.2 Lymph # (Auto) 0.82 L [place] # (Auto) 0.7 H Eos # (Auto) 0.1 Baso # (Auto) 0.0 Abs Immat Gran (auto) 0.01 Absolute Neuts (auto) 4.7 Absolute Nucleated RBC 0.000 Nucleated RBC % 0.0 % Immature Plt Fraction 2.7 Sodium 133 L Potassium 3.7 Chloride 102 Carbon Dioxide 27 Anion Gap 4 BUN 9 Creatinine 0.83 Estim Creat Clear Calc 64 Estimated GFR > 60 Glucose 96 Calcium 8.6 Quality VTE Prophylaxis VTE prophylaxis: pharmacologic ordered
== END 2024-12-30 14:25 | disposition home health service (06) ==
LOC: ANHSURGERY 10:02 → ANH3MEDSUR 16:25
PROVIDERS: PCP Family Medicine; Visit Provider Orthopaedic Surgery
PROC: (CPT 27447; principal; 2024-12-29 12:00)
DX: M17.11 Unilateral primary osteoarthritis, right knee (principal); M25.761 Osteophyte, right knee; G89.18 Other acute postprocedural pain; E78.5 Hyperlipidemia, unspecified; R73.03 Prediabetes; I10 Essential (primary) hypertension; K21.9 Gastro-esophageal reflux disease without esophagitis; G47.33 Obstructive sleep apnea (adult) (pediatric); D69.6 Thrombocytopenia, unspecified; G47.00 Insomnia, unspecified; L82.1 Other seborrheic keratosis; F32.9 Major depressive disorder, single episode, unspecified; Z99.89 Dependence on other enabling machines and devices; Z98.890 Other specified postprocedural states; Z87.891 Personal history of nicotine dependence
CPT/HCPCS: 64447; 27447; 36415; 73560; 80048; 85025; 85055; 97110; 97116; 97161; 97166; 97530; J0690; A9270; C1713; J0166; J1171; J1885; J2003; J2270; J2405; J2704; J2795; J3010; J3373; J7120

== ENCOUNTER 2025-03-01 09:22 | Outpatient (CLI) | payer MEDICARE, SELFPAY ==
--- OUTSIDE RECORDS SUMMARY | 2025-03-01 10:40 | XMS_ITS | Clinical Summary ---
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
--- OUTSIDE RECORDS SUMMARY | 2025-03-01 10:40 | XMS_ITS | Clinical Summary ---
[facility] Organization [facility] Address [address] Lui: Erika Pretayla [place] [address] Care Team Providers Care Special Police Name Role Phone Unavailable Primary Care Provider [...] ears 60 Gram 2 04/24/2022 12:54 PM OPERATIONS PLANNER 2 Active buPROPion HCL (WELLBUTRIN XL) 150 [...] EVENING. 90 Tablet 3 07/10/2023 11:47 AM OPERATIONS PLANNER 3 Active fluticasone propionate (FLONASE) 50 mcg/spray Hayes, Suspension nasal inhaler Administer 1 Hayes in each nostril 2 times daily. 16 Gram 11/27/2022 1:14 PM CDT 3 Active ARIPiprazole (ABILIFY) 5 mg tablet TAKE ONE TABLET BY MOUTH AT BEDTIME 90 Tablet 1 07/10/2023 11:47 AM OPERATIONS PLANNER 3 Active naltrexone (DEPADE) 50 mg tablet Take 1 tablet every day by oral route in the morning for 90 days. 90 Tablet 1 08/15/2023 4:41 PM CDT 3 Active loratadine (CLARITIN) 10 mg tablet Take 1 tablet by mouth every evening 90 Tablet 3 4 Active loratadine (CLARITIN) 10 mg tablet Take 1 Tablet (10 mg) by mouth daily every evening. 90 Tablet 3 01/19/2025 2:01 PM CDT 4 Active amoxicillin-cl avulanate (AUGMENTIN) 875-125 mg tablet Take 1 Tablet by mouth 2 times daily. 20 Tablet 06/15/2024 2:10 PM OPERATIONS PLANNER 5 Active ARIPiprazole (ABILIFY) 5 mg tablet [...] mouth every 7 days. 12 Capsule 2 02/03/2025 12:25 PM CDT 5 Active tamsulosin (FLOMAX) 0.4 mg capsule Take 1 Capsule (0.4 mg) by mouth daily at bedtime. 30 Capsule 6 01/11/2025 11:45 AM CDT 5 Active fluorouraciL (EFUDEX) 5 % Cream Apply to affected spot on left cheek two times daily for 2 weeks. Apply Vaseline between applications to ease irritation/disco mfort. 40 Gram 3 12/15/2024 2:54 PM CDT 5 Active chlorhexidine gluconate (HIBICLENS) 4 % Liquid CLEANSE OPERATIVE EXTREMITY IN SHOWER EVERY DAY FOR 1 WEEK PRIOR TO SURGICAL PROCEDURE. 236 mL 5 Active aspirin (ECOTRIN EC) 325 mg Tablet, Delayed Release (E.C.) 325 mg orally every 12 hours for 28 days 56 Tablet 5 Active oxyCODONE-acet aminophen (PERCOCET) 5-325 mg tablet TAKE 1-2 TABLETS BY MOUTH EVERY 4-6 HOURS NEEDED FOR PAIN 30 Tablet 12/30/2024 1:22 PM CDT 5 Active omeprazole (PriLOSEC) 40 mg Capsule, Delayed Release(E.C.) Take 1 Capsule (40 mg) by mouth daily in the evening. 90 Capsule 3 01/11/2025 11:45 AM CDT 5 Active buPROPion HCL (WELLBUTRIN XL) 150 mg Extended Release 24 hour tablet Take 1 Tablet (150 mg) by mouth daily in the morning. 90 Tablet 01/19/2025 2:01 PM CDT 5 Active rosuvastatin (CRESTOR) 5 mg tablet Take 1 Tablet (5 mg) by mouth daily. 30 Tablet 6 01/25/2025 1:22 PM CDT 5 Active eszopiclone (LUNESTA) 2 mg Tablet Take 1 Tablet (2 mg) by mouth one time only for 1 dose. TAKE MEDICATION TO SLEEP CENTER FOR SLEEP STUDY, IF NEEDED. 1 Tablet 02/03/2025 12:25 PM CDT 5 02/05/20 25 Encounters Date Type Department Care Team Description 12/22/2024 External Device Data [facility] ABSTRACTION Provider, Abstract from Last 3 Months Immunizations Immunization Administration Dates Next Due INFLUENZA VACCINE HIGH DOSE TRIVALENT SPLIT VIRUS, (65 YR UP), 0.5ML (PF), IM 01/25/2025 Social History Tobacco Use Types Packs/Day Years [...] - 1-dose 75+ series) 08/03/2019 INFLUENZA VACCINE Completed 01/25/2025 Insurance RX [employer] (INTERNAL) [facility] RX [employer] Medicare Part D
--- OUTSIDE RECORDS SUMMARY | 2025-03-01 10:40 | XMS_ITS | Clinical Summary ---
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
--- OUTSIDE RECORDS SUMMARY | 2025-03-01 10:40 | XMS_ITS | Patient Health Record ---
Author Organization [facility] [employer] [facility] Address [address] [place] [address] Care Team Providers Care Enterprise Systems Administrator Name Role Phone Rama Dacosta MD Primary Care Provider Monae Dacosta Unavailable [phone] Allergies No Known Allergies Reason For Referral No Information Medications Medication SIG (Take, Route, Frequency, Duration) Notes Start Date End Date Status ARIPiprazole 5 MG Tablet 1 tablet at bedtime Oral Once a day; Duration: 90 days Active Fluticasone Propionate Diskus 50 MCG/ACT Aerosol Powder Breath Activated Inhalation *Reorder from [employer] for eRx and Interaction Alerts* 09/23/2023 Active Desonide 0.05 % Lotion External 09/23/2023 Active Loratadine 10 MG Tablet 1 tablet Orally Once a day Active buPROPion HCl ER (XL) 150 MG Tablet Extended Release 24 Hour 1 tablet in the morning Oral Once a day; Duration: 90 days Active Omeprazole 40 MG Capsule Delayed Release Oral 09/23/2023 Active Naltrexone HCl 50 MG Tablet 1 tablet Oral Once a day; Duration: 90 days 09/23/2023 03/20/2025 Active FLUZONE HIGH-DOSE QUAD 2019- (PF) 240 MCG/0.7 ML IM SYRINGE *Reorder from [employer] for eRx and Interaction Alerts* 09/23/2023 Active Ketoconazole 2% Shampoo External 09/23/2023 Active Mometasone Furoate 0.1 % Cream External 09/23/2023 Active BUPROPION HYDROCHLORIDE ER (XL) 150 MG TB24 *Reorder from [employer] for eRx and Interaction Alerts* 09/23/2023 Active Rosuvastatin Calcium 5 MG Tablet Oral 09/23/2023 Active Immunizations Vaccine Route Administration [...] History Observation Description Sex Assigned At Male Social History Miscellaneous: Social Info Question Answer Notes Advance Care Planning Are you your own decision-maker Yes Do you have Power of Highway Landscape Architect for Health or [facility]? Yes Do you have a power of compliance attorney for health? Yes Tobacco Use: Social Info Question Answer Notes Tobacco Control (Standard) Tobacco use: Former smoker Additional Details Category Social Info Options Details Migrated Social History Migrated Social History Alcohol Intake: None 04/30/2018,Tobacco Years: Former smoker 04/30/2018,Smoking Status: 39 03/20/2023 Problems Problem Type SNOMED Code ICD Code Onset Dates Problem Status W/U Status Risk Notes Problem Chronic alcoholism in remission (412464054) Alcohol dependence, in remission (F10.21) Active confirmed Problem Bipolar affective disorder, currently depressed, mild (850415677) Bipolar disorder, current episode depressed, mild (F31.31) 09/23/19 24 Active confirmed Problem Generalized anxiety disorder (56203678) Generalized anxiety disorder (F41.1) 09/23/19 24 Active confirmed Problem Insomnia disorder related to another mental disorder (43389506) Insomnia due to other mental disorder (F51.05) 09/23/19 24 Active confirmed Problem Screening for cardiovascular system disease (945883816) Encounter for screening for cardiovascular disorders (Z13.6) Active confirmed Problem Long-term current use of drug therapy (033919558) Other long term care phlebotomist (current) drug therapy (Z79.899) 09/23/19 24 Active confirmed Problem Elevated blood-pressure reading without diagnosis of hypertension (986993927) Elevated blood pressure reading (R03.0) Active confirmed Vital Signs Heart Rate 89 /min 09/21/2024 Respiratory Rate 18 /min 09/21/2024 Height-cm 177.80 cm 09/21/2024 Blood pressure diastolic 84 mm Hg 09/21/2024 Weight-kg 96.07 kg 09/21/2024 Height 70.00 in 09/21/2024 Blood pressure systolic 117 mm Hg 09/21/2024 Weight 211.8 lbs 09/21/2024 BMI 30.39 kg/m2 09/21/2024 Encounters Encounter Location Date Provider Diagnosis [employer] [facility] [address] 03/23/2024 Monae Quinteros Bipolar disorder, current episode depressed, mild F31.31 ; Generalized anxiety disorder F41.1 ; Alcohol dependence, in remission F10.21 ; Insomnia due to other mental disorder F51.05 ; Other assisted (current) drug therapy Z79.899 and Elevated blood pressure reading R03.[address] [facility] [address] 09/21/2024 Monae Quinteros Negative depression screening Z13.31 ; Bipolar disorder, current episode depressed, mild F31.31 ; Encounter for screening for cardiovascular disorders Z13.6 ; Generalized anxiety disorder F41.1 ; Alcohol dependence, in remission F10.21 ; Insomnia due to other mental disorder F51.05 ; Other long term care phlebotomist (current) drug therapy Z79.899 and Elevated blood [...] with prescribed medications. 03/23/2024 Other long term care phlebotomist (current) drug therapy (ICD-10 - Z79.899) presently [...] and interactions with prescribed medications. 09/21/2024 Other assisted (current) drug therapy (ICD-10 - Z79.899) presently [...] or national office of the Alzheimer's Association ([phone] 0; http://www.alz .org), the Alzheimer's Disease Education and Referral Center (ADESD) ([phone] 0; http://www.airam .nih.gov/Alzhe bria/), presently taking Naltrexone [...] Next Appt Details Provider Name:Monae Quinteros , 03/22/2025 11:45:00 AM, [address], [facility] [address], [place], [address], Insurance Providers Payer Name Payer Address Payer Phone Subscriber Number Group Number Insured Name Patient Relationship to Insured Coverage Start Date Coverage End Date [employer] [address] [place] [phone] [id number] KEEN Self - patient is the insured Medical (General) History Medical History History ICD Code Problems: Acute COVID-19 Alcohol dependence Bipolar affective disorder, currently de pressed, mild Generalized anxiety disorder Insomnia disorder related to another men shana disorder Long-term drug therapy Vitamin D deficiency , Surgical History Surgery Date(Month/Year) appendix 1999 gall bladder
--- NOTE | 2025-03-28 09:23 | WPDSLEEPSTUD ---
Sleep Study Date of Study: 03/01/25 Ordering Provider: Hardeep Thacker APRN Interpreting Physician: Shayna Vale DO Sleep Study Type: BiPAP Titration Height: 1.78 m Weight: 92.986 kg Body Mass Index: 29.4 Neck Circumference (inches): 17 [place]: 12 Reason for Sleep Study Daytime hypersomnia Sleep History The patient is an 79-year-old male that had a sleep study ordered by his primary care for evaluation sleep apnea. The patient rarely awakens from sleep short of breath. He rarely awakens at night with heartburn belching or cough. He rarely wakes up gasping for air throughout the night. He rarely has excessive sweating at night. He rarely has heart palpitations or irregular heartbeats during the night. He occasionally falls asleep during the day but rarely while driving. He denies cataplexy. He rarely feels unable to move waking up or falling asleep. He rarely experiences vivid dreamlike scenes upon awakening or falling asleep. He rarely has. He rarely remembers his dreams. He occasionally has thoughts racing through his mind. He rarely feels sad, depressed or anxious. He occasionally has muscular tension. He rarely notices parts of his body jerk. He denies kicking during the night. He rarely has crawling and aching feelings in his and rarely has leg pain during. He rarely is bothered by pain during the day never awakened by pain during the night. He occasionally wakes up feeling stiff in the morning. He occasionally wakes up with sore or achy muscles. He occasionally wakes up with pain in the neck, spine or other joints. He goes to bed between midnight to 2:00 a.m. on both weekdays and weekends. It takes him 5-10 minutes to fall asleep. He wakes up 2-3 times throughout the night to urinate and is able to fall back asleep within 10 minutes. He wakes up between 9-10 a.m. on both weekdays and weekends. He typically gets 5-6 hours of sleep per night. He does not stay after waking up in the morning. He currently lives with his . He denies consuming any caffeinated beverages within 2 hours of bedtime. He denies engaging in physical exercise before bedtime. He will read watch television before falling asleep. He will take naps in afternoon or the evening. He consumes 1-2 cups of a caffeinated beverage per day. He quit smoking cigarettes 7 years ago. He denies alcohol and recreational drug use. [facility] Past Medical History Medical History Other fatigue Left knee DJD Right knee DJD Overweight (BMI 25.0-29.9) Insomnia Encounter for immunization Seborrheic keratoses KERRIE (obstructive sleep apnea) Persistent cough for 3 weeks or longer Allergic rhinitis Alcohol abuse Essential hypertension Gastroesophageal reflux disease Hyperlipidemia, unspecified Major depressive disorder, single episode, unspecified Prediabetes Thrombocytopenia Surgical History Surgical History S/P total knee arthroplasty RT TKA 12/29/24- Dr. Strauss History of appendectomy H/O colonoscopy with polypectomy Family History Family History Mother Family history of osteoporosis Father Family history of hearing loss Social History Social History Smoking packs per day: 1 Smoking cigarettes per day: 20.0 Years smoked: 15 Smoking pack-years: 15.00 Smoking status: Former smoker Second hand tobacco smoke exposure: No Alcohol intake: former Alcohol use details: none in 7 yrs Substance use: never Substance use type: does not use Lack of Transportation: No Lack of Food: Never True Current Housing: I Have Housing Concerned About Future Housing: No Difficulty Paying Gas/Electric Bills: No Difficulty Paying for Meds: No Currently Unemployed: No Education: Bachelor's Degree Difficulty w/ Childcare or Family Care: No Living arrangements: with family Additional living arrangements comments: [place] Gender identity (if verbalized by the patient): Male Spiritual care concerns: No Medications Home Medications ?Medication ?Instructions ?Recorded ?Confirmed ?Type aripiprazole 5 mg tablet 5 mg PO QPM 11/29/19 01/27/25 History bupropion HCl 150 mg 24 hr tablet, 150 mg PO .PM 11/29/19 01/27/25 History extended release naltrexone 50 mg tablet 50 mg PO DAILY 11/29/19 01/27/25 History ketoconazole 2 % shampoo 1 applic topical 2XW PRN Outbreak 06/07/20 01/27/25 History melatonin 10 mg capsule 10 mg PO QHS 11/21/20 01/27/25 History Glucosamine Chondroitin 1 cap PO DAILY 06/18/21 01/27/25 History bioflavonoids 200 mg capsule 200 mg PO DAILY 06/18/21 01/27/25 History loratadine 10 mg tablet 10 mg PO QPM #90 tabs 03/09/24 01/27/25 Rx cetirizine 10 mg tablet (24Hour 10 mg PO DAILY 09/28/24 01/27/25 History Allergy) potassium gluconate 550 mg (90 mg) 550 mg PO DAILY 09/28/24 01/27/25 History tablet ergocalciferol (vitamin D2) 1,250 1,250 mcg PO WEEKLY #12 caps 11/04/24 01/27/25 Rx mcg (50,000 unit) capsule (Vitamin D2) tamsulosin 0.4 mg capsule (Flomax) 0.4 mg PO QHS #30 caps 12/14/24 01/27/25 Rx vitamin B complex 1 tablet PO DAILY #100 tabs 12/14/24 01/27/25 Rx aspirin 325 mg tablet,delayed 325 mg PO Q12HR 28 days #56 tabs 12/30/24 01/27/25 Rx release oxycodone-acetaminophen 5 mg-325 1 - 2 tablet PO Q4-6H PRN pain #30 12/30/24 01/27/25 Rx mg tablet tabs omeprazole 40 mg capsule,delayed 40 mg PO QPM #90 caps 01/09/25 01/27/25 Rx release rosuvastatin 5 mg tablet 5 mg PO DAILY #30 tabs 01/24/25 01/27/25 Rx eszopiclone 2 mg tablet 2 mg PO ONCE #1 tablet 02/03/25 Rx Sleep Procedure A full night CPAP Titration using the [employer] multi-channel system recorded the standard physiologic parameters including EEG, EOG, submentalis EMG, anterior tibialis EMG, EKG, body position, nasal and oral airflow using nasal pressure sensor and thermistor.? Respiratory parameters of chest and abdominal movements were recorded with Respiratory Inductance Plethysmography belts. Oxygen saturation was recorded by pulse oximetry. Video monitoring was also performed. Sleep stages, periodic limb movements, and EEG arousals were scored in 30 second epochs according to the criteria of the AASM Scoring Manual. The Apnea-Hypopnea Index was calculated using CMS guidelines for definition of hypopnea with 4% O2 desaturations while scoring respiratory events. Sleep Architecture The total recording time was 467.1 minutes.? The total sleep time was 414.5 minutes. Sleep latency was 3.0 minutes. REM latency was 231.5 minutes. Sleep efficiency was 88.7%. The patient had 48 awakenings for an awakening index of 6.9. Wake after Sleep Onset time was 49.5 minutes. The patient spent 38.0 minutes, 9.2% of total sleep time in Stage N1. The patient spent 340.0 minutes, 82.0% in Stage N2. The patient spent 0.0 minutes, 0.0% in Stage N3. The patient spent 36.5 minutes, 8.8% in Stage REM. Respiratory Analysis The patient had 47 hypopneas, 16 obstructive apneas, 14 mixed apneas, and 29 central apneas for an overall Apnea Hypopnea Index of 15.3 events per hour. The REM Apnea Hypopnea Index was 11.5. The NREM Apnea Hypopnea Index was 15.7. The patient had a Central Apnea Hypopnea Index of 4.2. There was no evidence of Donell-Pacheco Respirations. The patient was started on CPAP 5 cm H2O and titrated to BPAP 19/13 cm H2O. The patient was able to fall asleep starting on CPAP 5 cm H2O. The patient was able to achieve REM sleep starting on BPAP 14/9 cm H2O. The patient was able to achieve a residual AHI less than 5 with both NREM and REM sleep in the supine position on BPAP 16/10 cm H2O. On BPAP 16/10 cm H2O, the patient spent 97 minutes in NREM and 26.5 minutes in REM with 1 obstructive apnea, 2 central apneas, 3 mixed apneas and 1 hypopnea, resulting in an AHI of 3.4. The patient had a sleep efficiency of 89.8% on this pressure setting. Arousals There were 142 total arousals for an arousal index of 20.6. There were 48 spontaneous arousals for an index of 6.9. ?There were 45 arousals due to respiratory events for an index of 6.5. There were 37 arousals due to periodic limb movements for an index of 5.4.? There were 11 arousals due to isolated limb movements for an index of 1.6. Periodic Limb Movements The patient had 63 isolated limb movements with an index of 9.1. The patient had 302 periodic limb movements with index of 43.7, which is elevated (normal < 15). Patient had a total of 365 limb movements with a total limb movement index of 52.8. Oximetry Data The patient had an average oxygen saturation of 92.1% in sleep with a minimum oxygen saturation of 75.0% and a maximum oxygen saturation of 96.0%. The patient had 80 oxygen desaturations that were 4% or greater resulting in an Oxygen Desaturation Index of 11.6.? The patient spent 14 minutes, 3% of total sleep time with an oxygen saturation below 88%. Snoring Profile Snoring was not present throughout the study. Cardiac Profile The EKG showed normal sinus rhythm. No arrhythmias or premature beats were seen. The patient had an average pulse rate of 64.8 bpm with a minimum pulse rate of 58.0 bpm and a maximum pulse rate of 82.0 bpm. ? EEG Profile No signs of seizure activity seen. Assessment and Plan Assessment and Plan (1) KERRIE (obstructive sleep apnea): Code(s): G47.33 - Obstructive sleep apnea (adult) (pediatric) Status: Acute Assessment and Plan: The patient was started on CPAP 5 cm H2O and titrated to BPAP 19/13 cm H2O. We were able to find a pressure setting that resolved the patient's sleep apnea. I recommend that the patient be prescribed BPAP 16/10 cm H2O, size medium Resmed AirTouch F20 full face mask, BPAP filters/tubing and heated humidity. This should be used with all episodes of sleep.? Compliance should be reviewed within 31-90 days of starting therapy for usage greater than 4 hours per night greater than 70% of the nights. The patient should be asked about symptoms such as?excessive daytime sleepiness, quality of sleep, decreased nocturia, increased?mental functioning such as memory, mood, and concentration. (2) PLMD (periodic limb movement disorder): Code(s): G47.61 - Periodic limb movement disorder Status: Acute Assessment and Plan: The patient had a significant number of limb movements during the study with the majority being periodic in nature. Approximately 10% of the periodic limb movements caused arousals in the patient's sleep. I recommend that the patient have a serum ferritin drawn for evaluation of iron deficiency anemia. If the patient has a serum ferritin less than 75 ng/mL, I recommend starting a daily iron supplement and a Vitamin C supplement for better absorption. If the serum ferritin is greater than 75 ng/mL, I recommend starting a dopamine agonist and titrating the dose until symptoms resolve. There are nonpharmacological methods to treat limb movements including daily exercise, stretching calf muscles before bed, avoiding excessive amounts of caffeine and alcohol, vitamin B supplementation, magnesium lotion massaged into legs before bed, and use of a weighted blanket. Data The data obtained during this sleep study is adequate for interpretation. Certification This sleep study has been reviewed by a board certified sleep medicine physician.
[2025-03-28 12:27] VITALS: BMI 29.4
== END 2025-03-02 06:34 | disposition home or self-care (01) ==
PROVIDERS: PCP Family Medicine; Visit Provider Nurse Practitioner Family
DX: G47.33 Obstructive sleep apnea (adult) (pediatric) (principal); G47.61 Periodic limb movement disorder
CPT/HCPCS: 95811

== ENCOUNTER 2025-03-10 14:00 | Outpatient (RCR) | payer MEDICARE, SELFPAY ==
--- NOTE | 2025-02-07 15:42 | OPREHPOC ---
Outpatient Therapy Plan of Care This is a Multidisciplinary Plan of Care that may contain components documented by all disciplines (PT, OT, and ST.) PT Problem 1 PT Problem #1 Knowledge Deficit PT Goal 1 Goal / Goal Update 1. Patient to demonstrate independence with HEP for improved self-reliance of symptom management. Target Visit 4 PT Problem 2 PT Problem #2 Impaired Functional Mobility PT Goal 1 Goal / Goal Update 1. Patient to decrease subjective reports of pain to <2/10 for improved ADL tolerance. 2. Pt will increase LEFS score by at least 9 points in order to demonstrate the minimal clinically important difference (MCID) in functional improvement. Target Visit 10 PT Problem 3 PT Problem #3 Impaired Range of Motion PT Goal 1 Goal / Goal Update 1. Patient to demonstrate an increase of R knee AROM of 0-120 deg to improve mobility required for gait/stair negotiation. Target Visit 10 PT Problem 4 PT Problem #4 Impaired Functional Mobility PT Goal 1 Goal / Goal Update 1. Pt will improve prolonged walking tolerance to be able to return back to work and volunteering. 2. Patient will improve lower extremity strength and functional mobility by reducing Five Times Sit -to-Stand test time from seconds to =15 seconds to demonstrate reduced fall risk and improved transitional movements Target Visit 10
--- NOTE | 2025-02-07 15:42 | PTOPEVAL1 ---
Assessment and note entered by Hoang Feliciano PT Evaluation Information Assessment Status Evaluation Diagnosis R TKA ICD-10 Condition Codes (PT) Pain in right knee M25.561,Abnormalities of gait and mobility R26.9,Aftercare following joint replacement surgery Z47.1 Onset 12/29/24 Subjective Information Pt presents s/p R TKA on 12/29/[address] Strauss. Pt reports no complications with surgery. Pt reports he did home health therapy for about a week and half after surgery. Pt reports since then he has continued his exercises and is walking daily. Pt is currently walking with no device. Pt doing stairs one at a time but has no stairs in home just stairs to go down to a patio area. 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 Pt reports his next follow up is not until FridayMay 05 Reported Pain Level Pain Score 2: Self Report Assessment PT Clinical Summary Patient presents to physical therapy following a R TKA on 12-29-24. Patient demonstrates post surgical weakness, increased pain/swelling, decreased mobility, abnormal posture, gait deficit , and decreased flexibility that limit their ability to perform activities of daily living and functional movements. Patient will benefit from skilled physical therapy to address the above listed deficits and return to prior level of function. Home exercise program instructed and written handout provided, exercises tolerated well with no adverse effects to note post-session. Patient was educated on importance of adherence to home exercise program. Patient was also educated on anatomy, prognosis, home modalities, and plan of care. Plan of Care Interventions Electrical Stimulation,Gait Training,Hot Pack/Cold Pack,Manual Therapy,Mechanical Traction,Neuro Re- education,Therapeutic Activities,Therapeutic Exercise,Other PT Services Indicated Yes Treatment Frequency and 2x week for 10 visits Duration These treatments will address the objective and functional deficits as defined above. The patient will be advanced safely and appropriately in order for the patient to progress towards his/her prior level of function. Additional exercises will be introduced and as well as a comprehensive home exercise program upon discharge, if needed, ?to ensure carryover of functional gains achieved in the clinic. This treatment plan has been reviewed and agreement upon by the patient.
--- NOTE | 2025-03-10 14:54 | PTOPDC ---
Assessment and note entered by Hoang Feliciano, PT Evaluation Information Assessment Status Discharge Diagnosis R TKA ICD-10 Condition Codes (PT) Pain in right knee M25.561,Abnormalities of gait and mobility R26.9,Aftercare following joint replacement surgery Z47.1 Onset 12/29/24 Subjective Information R TKA on 12/29/[address] Strauss. Pt states he feels 90% recovered. He reports his mobility and strength have made steady improvements. He notes one movement that still gives him trouble is getting in and out of the car, because the knee gets stiff and is hard to maneuver. Reported Pain Level Pain Score 1: Self Report Assessment PT Clinical Summary Patient's R knee has improved overall as evidenced by increases in mobility, strength, and overall functional use of the extremity. Patient has met therapy goals and is pleased with progress made towards the remaining goals. Patient to discharge from physical therapy this date and continue with updated home exercise program as instructed. Patient to contact physical therapist or primary care provider if questions or concerns arise. Plan of Care PT Services Indicated No
== END 2025-03-11 15:52 | disposition home or self-care (01) ==
LOC: ANHGOSHPT 14:00
PROVIDERS: PCP Family Medicine; Visit Provider Orthopaedic Surgery
DX: Z47.1 Aftercare following joint replacement surgery (principal); Z96.651 Presence of right artificial knee joint
CPT/HCPCS: 97110; 97140; 97161; 97530

== ENCOUNTER 2025-04-28 11:02 | Outpatient (CLI) | payer MEDICARE, SELFPAY ==
--- NOTE | ~2025-04-28 | XR_ITS ---
EXAMINATION: XR chest 2V, 04/28/2025 11:05 BUSINESS INTELLIGENCE ANALYST HISTORY: R06.09 - Other forms of dyspnea/FATIGUE COMPARISON: No comparisons available. Technique: 2 views obtained. Findings: The lungs are clear, no effusion. No pneumothorax. Heart is normal size. Mediastinal and hilar contours are within normal limits. Bony thorax no acute abnormality. Impression: No acute cardiopulmonary abnormality. Reviewed, dictated and finalized at location P. NESS INTELLIGENCE ANALYST Impression: No acute cardiopulmonary abnormality.
== END 2025-04-28 11:03 | disposition home or self-care (01) ==
PROVIDERS: PCP Nurse Practitioner Family; Visit Provider Nurse Practitioner Family
DX: R06.09 Other forms of dyspnea (principal)
CPT/HCPCS: 71046

== ENCOUNTER 2025-05-10 07:51 | Outpatient (CLI) | payer MEDICARE, SELFPAY ==
--- OUTSIDE RECORDS SUMMARY | 2025-05-10 07:58 | XMS_ITS | Clinical Summary ---
Author Organization [facility] Address [address] [place] [address] Care Team Providers Care Attendant Sales Name Role Phone Unavailable Primary Care Provider [...] 75+ series) 08/03/2019 COVID-19 Vaccine ( - 2024-2 6 season) 2025 Influenza Adult (#1) 2025 Hepatitis A Vaccines Aged Out No long er eligible based on patient's age to complete this topic Meningococcal B Vaccine Aged Out No l onger eligible based on patient's age to complete this topic Meningococcal Vaccine Aged Out No adrienne joshua eligible based on patient's age to complete this topic RSV Immunizations Under 20 Months Aged Out No longer eligible based on patient's age to complete this topic
--- OUTSIDE RECORDS SUMMARY | 2025-05-10 07:58 | XMS_ITS | Patient Health Record ---
Author Organization [facility] Address [address] [place] [address] Care Team Providers Care Seat Pack Inspector Name Role Phone Rama Dacosta MD Primary Care Provider Monae Dacosta Unavailable [phone] Allergies No Known Allergies Reason For Referral No Information Medications Medication SIG (Take, Route, Frequency, Duration) Notes Start Date End Date Status Ketoconazole 2% Shampoo External 09/23/2023 Active Mometasone Furoate 0.1 % Cream External 09/23/2023 Active BUPROPION HYDROCHLORIDE ER (XL) 150 MG TB24 *Reorder from [facility] for eRx and Interaction Alerts* 09/23/2023 Active Rosuvastatin Calcium 5 MG Tablet Oral 09/23/2023 Active Omeprazole 40 MG Capsule Delayed Release Oral 09/23/2023 Active FLUZONE HIGH-DOSE QUAD 2020-21 (PF) 240 MCG/0.7 ML IM SYRINGE *Reorder from [facility] for eRx and Interaction Alerts* 09/23/2023 Active buPROPion HCl ER (XL) 150 MG Tablet Extended Release 24 Hour 1 tablet in the morning Oral Once a day; Duration: 90 days Active buPROPion HCl ER (XL) 150 MG Tablet Extended Release 24 Hour 1 tablet in the morning Oral Once a day; Duration: 90 days 03/22/2025 Active Loratadine 10 MG Tablet 1 tablet Orally Once a day Active ARIPiprazole 5 MG Tablet 1 tablet at bedtime Oral Once a day; Duration: 90 days 03/22/2025 Active Fluticasone Propionate Diskus 50 MCG/ACT Aerosol Powder Breath Activated Inhalation *Reorder from [facility] for eRx and Interaction Alerts* 09/23/2023 Active Naltrexone HCl 50 MG Tablet 1 tablet Oral Once a day; Duration: 90 days 09/23/2023 09/18/2025 Active Desonide 0.05 % Lotion External 09/23/2023 Active Immunizations Vaccine Route Administration Date [...] decision-maker Yes Do you have Power of Patient Financial Services Coordinator for Health or Medi oswaldo? Yes Do you have a power of trial attorney for health? Yes Tobacco Use: Social Info Question Answer Notes Tobacco Control (Standard) Tobacco use: Former smoker Additional Details Category Social Info Options Details Migrated Social History Migrated Social History Alcohol Intake: None 04/30/2018,Tobacco Years: Former smoker 04/30/2018,Smoking Status: 39 03/20/2023 Problems Problem Type SNOMED Code ICD Code Onset Dates Problem Status W/U Status Risk Notes Problem Chronic alcoholism in remission (206734058) Alcohol dependence, in remission (F10.21) Active confirmed Problem Bipolar affective disorder, currently depressed, mild (221129204) Bipolar disorder, current episode depressed, mild (F31.31) 09/23/19 24 Active confirmed Problem Generalized anxiety disorder (70109248) Generalized anxiety disorder (F41.1) 09/23/19 24 Active confirmed Problem Insomnia disorder related to another mental disorder (19871135) Insomnia due to other mental disorder (F51.05) 09/23/19 24 Active confirmed Problem Screening for cardiovascular system disease (748548713) Encounter for screening for cardiovascular disorders (Z13.6) Active confirmed Problem Long-term current use of drug therapy (576232280) Other care home (current) drug therapy (Z79.899) 09/23/19 24 Active confirmed Problem Memory loss (98537140) Memory loss (R41.3) Active confirmed Problem Elevated blood-pressure reading without diagnosis of hypertension (613978705) Elevated blood pressure reading (R03.0) Active confirmed Vital Signs Heart Rate 89 /min 09/21/2024 Respiratory Rate 18 /min 09/21/2024 Height-cm 177.80 cm 09/21/2024 Blood pressure diastolic 84 mm Hg 09/21/2024 Weight-kg 96.07 kg 09/21/2024 Height 70.00 in 09/21/2024 Blood pressure systolic 117 mm Hg 09/21/2024 Weight 211.8 lbs 09/21/2024 BMI 30.39 kg/m2 09/21/2024 Encounters Encounter Location Date Provider Diagnosis [facility] [address] [place] [address] 09/21/2024 Monae Quinteros Negative depression screening Z13.31 ; Bipolar disorder, current episode depressed, mild F31.31 ; Encounter for screening for cardiovascular disorders Z13.6 ; Generalized anxiety disorder F41.1 ; Alcohol dependence, in remission F10.21 ; Insomnia due to other mental disorder F51.05 ; Other oysterman (current) drug therapy Z79.899 and Elevated blood pressure reading R03.0 [facility] [address] [place] [address] 03/22/2025 Monae Quinteros Generalized anxiety disorder F41.1 ; Bipolar disorder, current episode depressed, mild F31.31 ; Alcohol dependence, in remission F10.21 ; Insomnia due to other mental disorder F51.05 ; Other care home (current) drug therapy Z79.899 and Memory loss R41.3 Assessments Encounter Date Diagnosis (ICD Code) Assessment [...] potential neurotoxicity and interactions with prescribed medications. 03/22/2025 Generalized anxiety disorder (ICD-10 - F41.1) presently [...] 4. Alcohol- remission- Naltrexone 50 mg daily 5. Memory loss discuss SLUMS= 20 03/22/25 discuss medication options pateint does not want rx at this time- educated on all medications, benefits, side effects [...] potential neurotoxicity and interactions with prescribed medications. 03/22/2025 Alcohol dependence, in remission (ICD-10 - F10.21) [...] 4. Alcohol- remission- Naltrexone 50 mg daily 5. Memory loss discuss SLUMS= 20 03/22/25 discuss medication options pateint does not want rx at this time- educated on all medications, benefits, side effects [...] potential neurotoxicity and interactions with prescribed medications. 03/22/2025 Bipolar disorder, current episode depressed, mild (ICD-10 [...] 4. Alcohol- remission- Naltrexone 50 mg daily 5. Memory loss discuss SLUMS= 20 03/22/25 discuss medication options pateint does not want rx at this time- educated on all medications, benefits, side effects [...] potential neurotoxicity and interactions with prescribed medications. 03/22/2025 Insomnia due to other mental disorder (ICD-10 [...] 4. Alcohol- remission- Naltrexone 50 mg daily 5. Memory loss discuss SLUMS= 20 03/22/25 discuss medication options pateint does not want rx at this time- educated on all medications, benefits, side effects [...] potential neurotoxicity and interactions with prescribed medications. 03/22/2025 Other oysterman (current) drug therapy (ICD-10 - Z79.899) presently [...] 4. Alcohol- remission- Naltrexone 50 mg daily 5. Memory loss discuss SLUMS= 20 03/22/25 discuss medication options pateint does not want rx at this time- educated on all medications, benefits, side effects [...] potential neurotoxicity and interactions with prescribed medications. 03/22/2025 Memory loss (ICD-10 - R41.3) presently taking Naltrexone 50 mg daily, Wellbutrin XL 150mg in am, Abilify 5 mg daily 1. Bipolar- Wellbutrin XL 150mg in am, Abilify 5 mg daily 2. Anxiety Wellbutrin 3. Insomnia- Melatonin 10 mg OTC naps in day and sleep in chair in evening Sleep study completed and schedule to see specialist for CPAP 10/10 4. Alcohol- remission- Naltrexone 50 mg daily 5. Memory loss discuss SLUMS= 20 03/22/25 discuss medication options pateint does not want rx at this time- educated on all medications, benefits, side effects [...] and interactions with prescribed medications. 09/21/2024 Other oysterman (current) drug therapy (ICD-10 - Z79.899) presently [...] or national office of the Alzheimer's Association (2-145-908-002 0; http://www.alz .org), the Alzheimer's Disease Education and Referral Center (ADEAR) (2-234-007-274 0; http://www.airam .nih.gov/Alzhe imers/), presently taking Naltrexone 50 mg daily, Wellbutrin [...] potential neurotoxicity and interactions with prescribed medications. 03/22/2025 Other referral to the local chapter or national office of the Alzheimer's Association (0-805-398-155 0; http://www.alz .org), the Alzheimer's Disease Education and Referral Center (ADEAR) (7-373-239-162 0; http://www.airam .nih.gov/Alzhe imers/), Notes: referral to the local chapter or national office of the Alzheimer's Association (; http://www.alz .org), the Alzheimer's Disease Education and Referral Center (ADEAR) (4-508-353-749 0; http://www.airam .nih.gov/Alzhe imers/), referral to the local chapter or national office of the Alzheimer's Association (4-658-352-647 0; http://www.alz .org), the Alzheimer's Disease Education and Referral Center (ADEAR) (9-519-884-438 0; http://www.airam .nih.gov/Alzhe imorlando/), presently taking Naltrexone 50 mg daily, Wellbutrin XL 150mg in am, Abilify 5 mg daily 1. Bipolar- Wellbutrin XL 150mg in am, Abilify 5 mg daily 2. Anxiety Wellbutrin 3. Insomnia- Melatonin 10 mg OTC naps in day and sleep in chair in evening Sleep study completed and schedule to see specialist for CPAP 10/10 4. Alcohol- remission- Naltrexone 50 mg daily 5. Memory loss discuss SLUMS= 20 03/22/25 discuss medication options pateint does not want rx at this time- educated on all medications, benefits, side effects [...] Next Appt Details Provider Name:Monae Quinteros , 09/19/2025 11:45:00 AM, [address], [address], [place], [address], Insurance Providers Payer Name Payer Address Payer Phone Subscriber Number Group Number Insured Name Patient Relationship to Insured Coverage Start Date Coverage End Date [employer] [address] [place] [address] [id number] Self - patient is the insured Medical (General) History Medical History History ICD Code Problems: Acute COVID-19 Alcohol dependence Bipolar affective disorder, currently de pressed, mild Generalized anxiety disorder Insomnia disorder related to another men shana disorder Long-term drug therapy Vitamin D deficiency , Surgical History Surgery Date(Month/Year) appendix 1999 gall bladder RT KNEE replaced 12/10
--- OUTSIDE RECORDS SUMMARY | 2025-05-10 07:58 | XMS_ITS | Encounter Summary ---
Author Organization [facility] Address [address] [place] [address] Care Team Providers Care Second Baller Name Role Phone Rama Dacosta MD Primary Care Provider [phone] Encounter Details Date Type Department Care Team (Late st Contact Info) Description 07/08/2018 Lab Requisition [facility] Care DermPath Lab 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 Gender Identity Not on file Sexual Orientation Not on file documented as of this encounter Plan of Treatment Not on file documented as of this encounter Procedures Procedure Name Priority Date/Time Associated Diagnosis Comments DERMATOPATHOLOGY Routine 07/07/2018 12:0 0 AM HORIZONTAL BORING MILL OPERATOR documented in this encounter Results * DERMATOPATHOLOGY (07/07/2018 12:00 AM HORIZONTAL BORING MILL OPERATOR) Case Report Dermatopathology Report Case: [id number] Authorizing Provider: Chris Paniagua MD Collected: 07/07/2018 12:00 AM Pathologist: Parth Castellano MD Received: 07/08/2018 12:12 PM Specimen: Skin, left cheek 9 4:22 PM [facility] DERMATOPATHOLOGY LABORATORY Final Diagnosis Specimen A. SKIN, left cheek: BENIGN VERRUCOUS KERATOSIS, INFLAMED (L82.1) 9 4:22 PM [facility] DERMATOPATHOLOGY LABORATORY at [address] HORIZONTAL BORING MILL OPERATOR Clinical History R/O BCC, ISK,SCC 4:22 PM [facility] DERMATOPATHOLOGY LABORATORY Gross Description Specimen A: Received is one formalin filled container labeled with the patient's name and designated left cheek. The specimen consists of a shave biopsy measuring 8x7x4 mm, bisected. Jar 0. 9 4:22 PM [facility] DERMATOPATHOLOGY LABORATORY Microscopic Description Specimen A. SKIN, left cheek: Sections show hyperkeratosis, papillomatosis, hypergranulosis, and acanthosis. Inflammatory cells are present within the dermis. These histological findings can be seen in a verruca vulgaris or a seborrheic keratosis. 4:22 PM [facility] DERMATOPATHOLOGY LABORATORY Disclaimer An external and internal positive and negative controls are appropriate for the histochemical, immunohistochemical and immunofluorescence stain(s) in this case (if any), except where stated explicitly. The performance characteristics of the stain(s) cited in this report were developed and its performance characteristic determined by the Dermatopathology Laboratory at [facility], directed by Dr. Shraddha Castellano. These tests need not be, and therefore are not, approved by the [place] Food and Drug Administration. The tests are used for clinical purposes. Billing Codes Specimen Charges Stain Charges 12782 1 9 4:22 PM [facility] DERMATOPATHOLOGY LABORATORY Embedded Images 4:22 PM [facility] DERMATOPATHOLOGY LABORATORY Pathology/Cytolog y TISSUE SPECIMEN FROM SKIN / Unknown 07/07/2018 07/08/2018 12:12 PM HORIZONTAL BORING MILL OPERATOR Chris Paniagua MD LAB - PATHOLOGY/CYTOLOGY ORD ERABLES Final Result DERMATOPATHOLOGY LABORATORY [facility] - Department of Dermatology [address] [place] [address], [address] [place] [address], [facility] [phone] documented in this encounter Visit Diagnoses Not on filedocumented in this encounter Care Teams Second Baller Relationship Specialty Start Date End Date Rama Dacosta MD [address] [place] [address] PCP - General Family Medicine 04/22/16 documented as of this encounter
--- OUTSIDE RECORDS SUMMARY | 2025-05-10 07:58 | XMS_ITS | Clinical Summary ---
Author Organization [facility] Address [address] Pruittn: Erika Pretayla [place] [address] Care Team Providers Care Duty Manager Name Role Phone Unavailable Primary Care Provider Unavailabl e Medications ARIPiprazole (ABILIFY) 5 mg tablet TAKE ONE TABLET BY MOUTH AT BEDTIME 90 Tablet 12/14/19 22 Active buPROPion HCL (WELLBUTRIN XL) 150 mg Extended Release 24 hour tablet Take 1 tablet every day by oral route in the morning for 90 days. 90 Tablet 12/14/19 22 Active naltrexone (DEPADE) 50 mg tablet Take 1 tablet every day by oral route in the morning for 90 days. 90 Tablet 12/14/19 22 Active ARIPiprazole (ABILIFY) 5 mg tablet TAKE ONE TABLET BY MOUTH AT BEDTIME 90 Tablet 1 2 6:24 PM CDT 03/14/20 22 Active buPROPion HCL (WELLBUTRIN XL) 150 mg Extended Release 24 hour tablet Take 1 Tablet (150 mg) by mouth daily in the morning. 90 Tablet 1 2 6:24 PM CDT 03/14/20 22 Active naltrexone (DEPADE) 50 mg tablet Take 1 Tablet (50 mg) by mouth daily in the morning. 90 Tablet 1 2 6:24 PM CDT 03/14/20 22 Active mometasone (ELOCON) 0.1 % Cream Apply twice daily to the face and behind ears 60 Gram 2 2 12:54 PM AMMONIA REFRIGERATION WORKER 04/22/20 22 Active buPROPion HCL (WELLBUTRIN XL) 150 mg Extended Release 24 hour tablet Take 1 tablet every day by oral route in the morning for 90 days. 90 Tablet 1 3 2:45 PM CDT 09/17/19 23 Active naltrexone (DEPADE) 50 mg tablet Take 1 tablet every day by oral route in the morning for 90 days. 90 Tablet 1 3 2:45 PM CDT 09/17/19 23 Active loratadine (CLARITIN) 10 mg tablet TAKE 1 TABLET BY MOUTH EVERY EVENING. 90 Tablet 3 4 11:47 AM AMMONIA REFRIGERATION WORKER 09/20/19 23 Active fluticasone propionate (FLONASE) 50 mcg/spray [place], Suspension nasal inhaler Administer 1 [place] in each nostril 2 times daily. 16 Gram 3 1:14 PM CDT 11/28/19 23 Active ARIPiprazole (ABILIFY) 5 mg tablet TAKE ONE TABLET BY MOUTH AT BEDTIME 90 Tablet 1 4 11:47 AM AMMONIA REFRIGERATION WORKER 03/20/20 23 Active naltrexone (DEPADE) 50 mg tablet Take 1 tablet every day by oral route in the morning for 90 days. 90 Tablet 1 4 4:41 PM CDT 03/20/20 23 Active loratadine (CLARITIN) 10 mg tablet Take 1 tablet by mouth every evening 90 Tablet 3 10/22/19 24 Active amoxicillin-cl avulanate (AUGMENTIN) 875-125 mg tablet Take 1 Tablet by mouth 2 times daily. 20 Tablet 5 2:10 PM AMMONIA REFRIGERATION WORKER 06/15/19 25 Active buPROPion HCL (WELLBUTRIN XL) 150 mg Extended Release 24 hour tablet Take 1 tablet (150mg) in the morning Oral Once a day for 90 days 90 Tablet 1 09/22/19 25 Active ergocalciferol (VITAMIN D2) 50,000 unit capsule Take 1 Capsule (50,000 Units) by mouth every 7 days. 12 Capsule 2 5 12:41 PM AMMONIA REFRIGERATION WORKER 11/05/19 25 Active tamsulosin (FLOMAX) 0.4 mg capsule Take 1 Capsule (0.4 mg) by mouth daily at bedtime. 30 Capsule 6 5 11:35 AM AMMONIA REFRIGERATION WORKER 12/15/19 25 Active fluorouraciL (EFUDEX) 5 % Cream Apply to affected spot on left cheek two times daily for 2 weeks. Apply Vaseline between applications to ease irritation/disc omfort. 40 Gram 3 5 2:54 PM CDT 12/15/19 25 Active chlorhexidine gluconate (HIBICLENS) 4 % Liquid CLEANSE OPERATIVE EXTREMITY IN SHOWER EVERY DAY FOR 1 WEEK PRIOR TO SURGICAL PROCEDURE. 236 mL 12/18/19 25 Active aspirin (ECOTRIN EC) 325 mg Tablet, Delayed Release (E.C.) 325 mg orally every 12 hours for 28 days 56 Tablet 12/31/19 25 Active oxyCODONE-acet aminophen (PERCOCET) 5-325 mg tablet TAKE 1-2 TABLETS BY MOUTH EVERY 4-6 HOURS NEEDED FOR PAIN 30 Tablet 5 1:22 PM CDT 12/31/19 25 Active omeprazole (PriLOSEC) 40 mg Capsule, Delayed Release(E.C.) Take 1 Capsule (40 mg) by mouth daily in the evening. 90 Capsule 3 5 11:35 AM AMMONIA REFRIGERATION WORKER 01/10/20 25 Active buPROPion HCL (WELLBUTRIN XL) 150 mg Extended Release 24 hour tablet Take 1 Tablet (150 mg) by mouth daily in the morning. 90 Tablet 5 2:01 PM CDT 01/19/20 25 Active rosuvastatin (CRESTOR) 5 mg tablet Take 1 Tablet (5 mg) by mouth daily. 30 Tablet 6 5 12:41 PM AMMONIA REFRIGERATION WORKER 01/25/20 25 Active ARIPiprazole (ABILIFY) 5 mg tablet Take 1 Tablet (5 mg) by mouth daily. 90 Tablet 1 03/22/20 25 Active buPROPion HCL (WELLBUTRIN XL) 150 mg Extended Release 24 hour tablet Take 1 Tablet (150 mg) by mouth daily in the morning. 90 Tablet 1 5 2:47 PM AMMONIA REFRIGERATION WORKER 03/22/20 25 Active naltrexone (DEPADE) 50 mg tablet Take 1 Tablet (50 mg) by mouth daily. 90 Tablet 1 5 3:31 PM AMMONIA REFRIGERATION WORKER 03/22/20 25 Active amoxicillin (AMOXIL) 500 mg capsule Take 4 capsules by mouth 1 hour prior to dental appointment 8 Capsule 1 5 2:47 PM AMMONIA REFRIGERATION WORKER 03/28/20 25 Active loratadine (CLARITIN) 10 mg tablet Take 1 Tablet (10 mg) by mouth daily every evening. 90 Tablet 3 5 11:35 AM AMMONIA REFRIGERATION WORKER 04/11/20 25 Active amoxicillin (AMOXIL) 500 mg capsule Take 4 capsules by mouth 1 hour before dental appointment 8 Capsule 1 5 12:41 PM AMMONIA REFRIGERATION WORKER 05/03/20 25 Active loratadine (CLARITIN) 10 mg tablet Take 1 Tablet (10 mg) by mouth daily every evening. 90 Tablet 3 5 2:01 PM CDT 03/09/20 24 025 Discontinued Encounters Date Type Department Care Team Description 04/19/2025 External Device Data [facility] ABSTRACTION Provider, Abstract 03/16/2025 External Device Data [facility] ABSTRACTION Provider, Abstract 03/16/2025 External Device Data [facility] ABSTRACTION Provider, Abstract [...]
--- OUTSIDE RECORDS SUMMARY | 2025-05-10 07:58 | XMS_ITS | Clinical Summary ---
Author Organization [facility] Address [address] [place] [address] Care Team Providers Care Roller Die Cutting Machine Operator Name Role Phone Rama Dacosta MD Primary Care Provider [phone] Source Comments [facility],non-owned Affiliates and Associated Physician Practices is amultiple site organization consisting of ambulatory clinics and hospital sitesin [place], [place], [place] and [place]. This disclosure is being madepursuant to the Care Everywhere program and may not contain all information available regarding this patient. Last updated 18.[facility] Immunizations Immunization Administration Dates Next Due INFLUENZA VACCINE, HIGH-DOSE , QUADR. 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 Gender Identity Not on file Sexual Orientation Not on file Plan of Treatment Health Maintenance Due Date Last Done Comments DTAP/TDAP/TD VACCINES (1 - Tdap) 08/03/1963 PNEUMOCOCCAL VACCINE 50+ (1 of 1 - PCV) 1994 ZOSTER VACCINE (1 of 2) 1994 Respiratory Syncytial Virus (RSV) Vaccine Pt: or over 60 yrs (1 - 1-dose 75+ series) 08/03/2019 DEPRESSION SCREENING 05/19/2024 MEDICARE AWV CALENDAR YEAR 2024 COVID-19 VACCINE (2024-2 6 season) 2025 INFLUENZA VACCINE (#1) 2025 04/22/2016 HEPATITIS B [...] patient's age to complete this topic Insurance [place] [employer] MEDICARE ADV SELF PAY NO INSURANCE Member Subscriber Plan / Payer (Ef fective for All Dates) Name:Srinivasa Keen Member ID:Not on file Relation to Subscriber:Not on file Name:SRINIVASA KEEN Subscriber ID:Not on file (Home) Address: [address] [place] [address] Payer ID:Not on file Group ID:Not on file Type:Self Pay Address: [place] [place] [facility] MANAGED MEDICARE ADV Care Teams Roller Die Cutting Machine Operator Relationship Specialty Start Date End Date Rama Dacosta MD [address] [place] [address] PCP - General Family Medicine 04/22/16
--- OUTSIDE RECORDS SUMMARY | 2025-05-10 07:58 | XMS_ITS | Clinical Summary ---
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
--- NOTE | 2025-05-10 11:19 | WPDPFTINT ---
PFT Procedure Performed PFT Procedure Performed Spirometry with Pre/Post Bronchodilator Plethysmography (Lung Vol) Diffusing Cap (DLCO) Flow Vol Loop PFT Interpretation This is a pulmonary function test with pre and post-bronchodilator spirometry, plethysmography and diffusing capacity. The test was performed and results interpreted in accordance with the 2019 and 2005 ATS/ERS Task Force guidelines respectively using the Global Lung Function Initiative-2012 reference equations. Patient demonstrated good effort and cooperation. Reproducibility criteria were met. The quality of the pre bronchodilator spirometry maneuver was Grade A and post bronchodilator spirometry maneuver was Grade A. Findings: Spirometry: The contour the inspiratory and expiratory flow tracing are normal. The pre bronchodilator FVC is 4.21 L, 108% predicted. The pre bronchodilator FEV1 is 3.06 L, 106% predicted. The pre bronchodilator FEV1: FVC ratio 73%. The post bronchodilator FVC is 4.08 L, representing a 3% decrease. The post bronchodilator FEV1 is 3.18 L, representing a 4% increase. The post bronchodilator FEV1: FVC ratio 78%. Plethysmography: The total lung capacity is 6.99 L, 99% predicted. The functional residual capacity is 4.22 L, 110% predicted. The residual volume is 2.78 L, 104% predicted. Diffusing capacity: The diffusing capacity unadjusted for hemoglobin and carboxyhemoglobin is 23.8, 100% predicted. The diffusing capacity adjusted for alveolar volume is 3.95, 109% predicted. In comparison to previous pulmonary function testing on 01/13/2015, the post bronchodilator FVC is unchanged from 4.08 L to 4.08 L. The post bronchodilator FEV1 is unchanged from 3.07 L to 3.18 L. The total lung capacity is unchanged from 7.25 L to 6.99 L. The functional residual capacity is increased from 3.38 L to 4.22 L. The residual volume is unchanged from 3.05 L to 2.78 L. The diffusing capacity unadjusted for hemoglobin and carboxyhemoglobin is unchanged from 23.8 to 23.8. The diffusing capacity adjusted for alveolar volume is unchanged from 4.30 to 3.95. Impression: The spirometry is normal without evidence of an obstructive abnormality. There is no significant improvement after inhaling a single dose of albuterol. The lung volumes are normal. The diffusing capacity is normal. In comparison to previous pulmonary function testing on 01/13/2015, there has been a greater than anticipated time dependent increase in the functional residual capacity with no significant change in the FVC, FEV1, total lung capacity, residual volume or diffusing capacity. Clinical correlation is recommended.
== END 2025-05-10 07:52 | disposition home or self-care (01) ==
LOC: ANHPFT 07:54
PROVIDERS: PCP Nurse Practitioner Family; Visit Provider Nurse Practitioner Family
DX: R06.09 Other forms of dyspnea (principal)
CPT/HCPCS: 94060; 94726; 94729